=== PATIENT | male | born 1945 | race Caucasian/White ===

== ENCOUNTER → 2018-07-23 10:06 | Outpatient (CLI) | payer MEDICARE, OTHER, SELFPAY ==
--- NOTE | 2018-07-23 10:13 | XR_ITS ---
EXAM: XR lumbar spine min 4V HISTORY: ITS.REASON: LOW BACK PAIN ORDERING PHYSICIAN: Almas Rust MD PATIENT AGE: 72 years COMPARISON: None FINDINGS: There is a moderate amount of feces in bowel gas which obscures the lumbar spine on the AP and oblique views. Degenerative disc disease L1-L2 and L2-L3. There is slight loss of height anteriorly of L3 is age-indeterminate. Minimal retrolisthesis L2 on L3 and L3 on L4 of 3 mm. IMPRESSION: Limited exam, Degenerative disc disease. Mild wedging of L3 age indeterminate
== END ==
PROVIDERS: PCP Internal Medicine Adolescent Medicine; Visit Provider Internal Medicine Adolescent Medicine
DX: M54.5 Low back pain (principal)
CPT/HCPCS: 72110

== ENCOUNTER → 2018-07-29 15:14 | Outpatient (CLI) | payer MEDICARE, OTHER, SELFPAY ==
--- NOTE | 2018-07-29 15:16 | MR_ITS ---
MR lumbar spine wo con, MR 3-d myelogram/MRCP HISTORY: Compression FX L3. LBP on LT side. LT leg tingling. Symptoms [id number]. No trauma. HX throat cancer., Wedging of L3 ITS.REASON: LEFT SIDED SCIATICA ORDERING PHYSICIAN: Almas Rust MD PATIENT AGE: 72 years Comparison: X-RAY 07-23-18 TECHNIQUE: Standard multiplanar multiecho sequences are performed without contrast. 3-D MIP and myelographic images are also rendered and reviewed FINDINGS: There is normal alignment. The spinal cord ends at the T12 level. T12-L1: There is a mosaic appearance of T12 vertebral body dominated by an area of decreased T1 signal in the mid aspect of the vertebral body measuring up to 2.4 x 2 cm which is isointense on T1 becomes hyper intense on the STIR images. This abnormal signal intensity extends into the left pedicle and lamina. This is only imaged in the sagittal plane. There is mild degenerative disc disease at that level with small left paracentral disc osteophyte complex causing mild foraminal narrowing on the left. No obvious epidural extension. L1-L2: Degenerative disc disease with minimal bulging disc and mild right-sided foraminal narrowing. L2-L3: Degenerative disc disease with bulging disc and anterior endplate hypertrophic change. There is mild facet hypertrophic change with mild bilateral foraminal narrowing. L3-L4: L3 vertebral body has an abnormal appearance hypointense on T1 and hyperintense on T2 with mild uniform loss of height consistent with bone marrow infiltration with suspected metastatic disease. There is mild concentric bulging disc at L3-L4 with moderate bilateral foraminal narrowing with facet and ligamentum flavum hypertrophy. L4-L5: Concentric bulging disc with bilateral foraminal narrowing from facet and ligamentum flavum hypertrophy. There is minimal central disc protrusion. L5-S1: Concentric bulging disc with mild facet and ligamentum flavum hypertrophy. There is abnormal signal intensity involving the right aspect of the ileum posteriorly measuring 2.8 x 2 cm hypointense on T1, and slightly hyperintense on T2 be most prominent on the STIR images. In addition, there is a lesion involving the left aspect of the sacrum posteriorly at 2.9 x 2.5 cm. IMPRESSION: 1. Multiple lesions involving T12, L3, the right aspect of the ileum, and the left aspect of the sacrum consistent with metastatic disease. There is mild wedge compression changes of L3 without retropulsion. 2. Lumbar spondylosis with multilevel degenerative disc disease, facet and ligamentum flavum hypertrophy, foraminal narrowing at multiple levels. Please see above for detail description at each level.
== END ==
PROVIDERS: PCP Internal Medicine Adolescent Medicine; Visit Provider Internal Medicine Adolescent Medicine
DX: M54.32 Sciatica, left side (principal); S32.030A Wedge compression fracture of third lumbar vertebra, initial encounter for closed fracture
CPT/HCPCS: 72148; 76376

== ENCOUNTER → 2018-08-04 09:58 | Outpatient (POV) | payer MEDICARE, OTHER, SELFPAY ==
[2018-08-04 10:04] VITALS: BP 180/100; PULSE 84; RESP 18; O2SAT 98
--- NOTE | 2018-08-04 12:25 | HMH.PMCON ---
Assessment and Plan (1) Compression fracture Current visit: Yes Status: Chronic Category: Medical - Assessment and plan all Dx Assessment and Plan for all problems:: We will schedule L3 kyphoplasty. Patient's MRI report did show potential metastatic disease. We will take a biopsy of the vertebral body during the kyphoplasty. Patient's primary care physician is aware of this. I will follow-up with the patient after his kyphoplasty. We also provided him with a back brace for comfort at this time. This note was dictated using voice recognition software and may contain errors or omissions HPI - Data of Consult Consult date: 08/04/18 Requesting Physician: Vannesa Roque APRN Primary Care Provider: Almas Rust MD - Consult Narrative Reason for consult: Back pain, compression fracture History of present illness: Mr. Jefferson is a 72 year old male who presents today for consultation in regards to his low back pain. Patient had recent MRI showing a compression fracture at L3. Patient states his pain is a 6 out of 10. Patient's tried and failed steroids and anti-inflammatories along with narcotic medications. Patient does have some tingling in his left leg. Patient does not have a back brace at this time. He states that all activity makes his pain worse while resting makes it better. Patient is not on any blood thinners CC: Vannesa Roque APRN [facility] History I have reviewed the patient's past medical history: Yes Medical History: Reports:: Hypertension, Palpitations Denies:: Diabetes Mellitus Type 1 Other Medical History: Reports: Thyroid Disease Other Surgeries: Yes: Cancer Surgery (THROAT AND NECK CANCER), Cholecystectomy, Hernia Repair - *Social History Smoking Status: Never smoker Alcohol Intake: never Occupational Status: other Housing: house Household Members: spouse - Psychiatric History Expresses thoughts of harming self/others: None Suicide Plan Description: No Plan *Family Hx:: Unable to obtain Review of Systems - Review of Systems ROS General: no recent weight change, no fever, no sleep disturbances Respiratory: no cough, no shortness of air, no recurring pulmonary infections Cardiovascular/Peripheral Vascular: No chest pain, No palpitations, no edema, no shortness of breath. Gastrointestinal: no incontinence, normal bowel movements reported Genitourinary: no incontinence Musculoskeletal: Back pain, leg pain Psychiatric: normal mood/ affect Neurological: [denies weakness in extremities], [denies balance issues] Meds Home Medications Medication Instructions Recorded Confirmed Type Aspirin [Aspirin 81mg chewable 81 mg PO DAILY 08/04/18 08/04/18 History tab] Carvedilol [Carvedilol 25mg Tab] 25 mg PO DAILY 08/04/18 08/04/18 History Levothyroxine Sodium [Synthroid 150 mg PO DAILY MDD THYROID 08/04/18 08/04/18 History 150mcg (0.15mg) tablet] Olmesartan/Hydrochlorothiazide 1 each PO DAILY 08/04/18 08/04/18 History [Olmesartan-Hctz 40-25 mg Tab] predniSONE [Deltasone 20mg 20 mg PO DAILY 08/04/18 08/04/18 History tablet] Allergies Allergy/AdvReac Type Severity Reaction Status Date / Time No Known Allergies Allergy Unverified 09/24/17 14:35 Objective Vital signs: Pulse Resp BP Pulse Ox 84 18 180/100 H 98 08/04/18 10:04 08/04/18 10:04 08/04/18 10:04 08/04/18 10:04 Narrative: Physical Exam General: Alert and oriented x3, no acute distress, pleasant and cooperative, [on room air] Lungs: Resps E/U, Symmetrical chest expansion, Eyes: PERRL Musculoskeletal: Flexion and extension of lumbar spine somewhat guarded secondary to pain, deep tendon reflexes normal, strength in upper and lower extremities [5/5], antalgic gait noted Neurological: speech clear, major case detective equal, no gross sensory deficits Opioid Risk Tool - Opioid Risk Tool-Male Family hx alcohol abuse: N Family hx illegal drugs: N Fam
--- NOTE | 2018-08-04 12:28 | P.CONS_ITS ---
Assessment and Plan (1) Compression fracture Current visit: Yes Status: Chronic Category: Medical - Assessment and plan all Dx Assessment and Plan for all problems:: We will schedule L3 kyphoplasty. Patient's MRI report did show potential metastatic disease. We will take a biopsy of the vertebral body during the kyphoplasty. Patient's primary care physician is aware of this. I will follow- up with the patient after his kyphoplasty. We also provided him with a back brace for comfort at this time. This note was dictated using voice recognition software and may contain errors or omissions HPI - Data of Consult Consult date: 08/04/18 Requesting Physician: Vannesa Roque APRN Primary Care Provider: Almas Rust MD - Consult Narrative Reason for consult: Back pain, compression fracture History of present illness: Mr. Jefferson is a 72 year old male who presents today for consultation in regards to his low back pain. Patient had recent MRI showing a compression fracture at L3. Patient states his pain is a 6 out of 10. Patient's tried and failed steroids and anti-inflammatories along with narcotic medications. Patient does have some tingling in his left leg. Patient does not have a back brace at this time. He states that all activity makes his pain worse while resting makes it better. Patient is not on any blood thinners CC: Vannesa Roque APRN [facility] History I have reviewed the patient's past medical history: Yes Medical History: Reports:: Hypertension, Palpitations Denies:: Diabetes Mellitus Type 1 Other Medical History: Reports: Thyroid Disease Other Surgeries: Yes: Cancer Surgery (THROAT AND NECK CANCER), Cholecystectomy, Hernia Repair - *Social History Smoking Status: Never smoker Alcohol Intake: never Occupational Status: other Housing: house Household Members: spouse - Psychiatric History Expresses thoughts of harming self/others: None Suicide Plan Description: No Plan *Family Hx:: Unable to obtain Review of Systems - Review of Systems ROS General: no recent weight change, no fever, no sleep disturbances Respiratory: no cough, no shortness of air, no recurring pulmonary infections Cardiovascular/Peripheral Vascular: No chest pain, No palpitations, no edema, no shortness of breath. Gastrointestinal: no incontinence, normal bowel movements reported Genitourinary: no incontinence Musculoskeletal: Back pain, leg pain Psychiatric: normal mood/ affect Neurological: [denies weakness in extremities], [denies balance issues] Meds Home Medications Medication Instructions Recorded Confirmed Type Aspirin [Aspirin 81mg chewable 81 mg PO DAILY 08/04/18 08/04/18 History tab] Carvedilol [Carvedilol 25mg Tab] 25 mg PO DAILY 08/04/18 08/04/18 History Levothyroxine Sodium [Synthroid 150 mg PO DAILY MDD THYROID 08/04/18 08/04/18 History 150mcg (0.15mg) tablet] Olmesartan/Hydrochlorothiazide 1 each PO DAILY 08/04/18 08/04/18 History [Olmesartan-Hctz 40-25 mg Tab] predniSONE [Deltasone 20mg 20 mg PO DAILY 08/04/18 08/04/18 History tablet] Allergies Allergy/AdvReac Type Severity Reaction Status Date / Time No Known Allergies Allergy Unverified 09/24/17 14:35 Objective Vital signs: Pulse Resp
== END ==
PROVIDERS: PCP Internal Medicine Adolescent Medicine; Visit Provider Clinical Nurse Specialist Family Health
DX: I10 Essential (primary) hypertension (principal); M48.56XA Collapsed vertebra, not elsewhere classified, lumbar region, initial encounter for fracture
CPT/HCPCS: 99202

== ENCOUNTER → 2018-08-18 07:48 | Outpatient (CLI) | payer MEDICARE, OTHER, SELFPAY ==
--- NOTE | 2018-08-18 07:57 | NM_ITS ---
NM bone scan whole body CLINICAL INDICATION: Metastatic disease, abnormal MRI, history of throat cancer ITS.REASON: METASTATIC CARCINOMA ORDERING PHYSICIAN: Almas Rust MD PATIENT AGE: 72 years Comparison: 07/29/2018 DOSE: 26.4 mCi technetium MDP FINDINGS: Previous MRI demonstrated multiple spinal lesions as well as lesions within the sacrum and right ilium. There is abnormal increased activity involving the right seventh rib posteriorly and medially, the L3 vertebral body, and the left aspect of T12 and T11 vertebral body at the costovertebral junction. Slight increased activity involves posterior lateral aspect of the right 10th rib. There is slight increased activity in the right SI joint. Small focus of increased activity also involves the left parietal bone and nonspecific foci of increased activity involves the right C4 area in the left C2 area. No abnormal long bone activity evident. Small focus of increased activity is present in the lower aspect of the manubrium. Slight increased activity right second rib anteriorly IMPRESSION: 1. There are multiple foci of abnormal activity suggesting metastatic disease as described above with the most suspicious areas in L3 vertebral body and the right seventh rib as well as left aspect of T11 and T12 vertebral body and the right ilium. Increased activity also present in the left parietal bone which could be due to metastatic focus. Slight increased activity right second rib anteriorly nonspecific 2. The sacral lesion does not show increased activity on the bone scan but is felt to be a metastatic focus on MRI.
--- NOTE | 2018-08-18 08:19 | HMH.ITSHM ---
Current Home Medications as stated by this patient Sreedhar Jeffesron or u.s. representative. []PREDNISONE OLMESARTAN LEVTHYROXINE CARVEDILOL ASA
--- NOTE | 2018-08-18 09:15 | HMH.ITSHM ---
Current Home Medications as stated by this patient Sreedhar Jefferson or arborist representative. []PREDNISONE OLMESARTAN LEVOTHYROXINE CARVEDILOL ASA
[2018-08-18 09:39] LABS: Blood Urea Nitrogen 8 mg/dL (7-18); Creatinine,Serum 0.85 mg/dL (0.70-1.30); Estimated Glomerular Filt Rate 88 ml/min (>60); GFR (African American) 107 ML/MIN (>60)
== END ==
PROVIDERS: Visit Provider Internal Medicine Adolescent Medicine
DX: C41.9 Malignant neoplasm of bone and articular cartilage, unspecified (principal)
CPT/HCPCS: 36415; 78306; 82565; 84520; A9503

== ENCOUNTER → 2018-08-20 09:32 | Outpatient (CLI) | payer MEDICARE, OTHER, SELFPAY ==
--- NOTE | 2018-08-20 09:36 | CT_ITS ---
CT soft tissue neck w con CLINICAL INDICATION: ITS.REASON: MALIGNANT NEOPLASM, METASTATIC CARCINOMA ORDERING PHYSICIAN: Almas Rust MD PATIENT AGE: 72 years COMPARISON: 04/24/2012 TECHNIQUE:Axial images obtained following the intravenous administration of 50 mL of Isovue-370 with sagittal and coronal reformats. All CT scans at the facility use one or more dose reduction, viz: automated exposure control, ma/kV adjustment per patient size (including targeted exams where dose is matched to indication, i.e. head), or iterative reconstruction technique. FINDINGS: No mass or abnormal fluid collection or adenopathy evident. The parotid and submandibular glands have an unremarkable appearance no obvious nasopharyngeal, retropharyngeal or laryngeal mass. The epiglottis and glottic region have an unremarkable appearance. There is degenerative disc disease at C5-C6 with 2 to 3 mm anterolisthesis of C4 on C5. The bone scan did show some increased activity on the right at the C5-C6 level and on the left C3-C4. There is a lucency within the left aspect of the vertebral body at C5. This however did have a similar appearance on the older exam and is probably benign and may be due to a geode. IMPRESSION: 1. Essentially negative CT neck with contrast. 2. Degenerative changes cervical spine
--- NOTE | 2018-08-20 09:36 | CT_ITS ---
CT chest w con HISTORY: ITS.REASON: MALIGNANT NEOPLASM, METASTATIC CARCINOMA ORDERING PHYSICIAN: Almas Rust MD PATIENT AGE: 72 years COMPARISON: 03/13/2012 TECHNIQUE: Axial images obtained following the administration of 75 mL of Isovue 370 . Sagittal, and coronal reformatted images are also generated and reviewed. All CT scans at the facility use one or more dose reduction, viz: automated exposure control, ma/kV adjustment per patient size (including targeted exams where dose is matched to indication, i.e. head), or iterative reconstruction technique. FINDINGS: There are scattered small mediastinal lymph nodes measuring up to 11 x 13 mm in the pretracheal region. These are slightly more apparent on today's study as compared to the previous exam. Small precarinal nodes are also present slightly more prominent. No hilar adenopathy or mass. There are coronary artery calcifications. No evidence of pericardial effusion. There is a lobular pleural-based density in the mid aspect right posterior hemithorax at the seventh rib. This measures 3.4 cm transverse, 1.6 cm AP, and 3.5 cm cephalad caudad with some erosion of the right seventh rib posteriorly and sclerosis of this rib consistent with neoplasm. This does correspond to the bone scan findings which show increased activity at this region. No pleural effusion evident. No calcification of the mass. There are mild atelectatic changes adjacent to this lesion. No pulmonary parenchymal suspicious nodules evident. Minimal nodularities present in the lingula at 6 x 3 mm image #9 nonspecific No other bony lesions are evident. IMPRESSION: 1. Pleural-based lesion in the right posterior hemithorax at the seventh rib with mild erosion and sclerosis of the underlying rib consistent with neoplasm. Metastatic disease is considered. 2. Mildly enlarged mediastinal lymph nodes slightly increased in size compared to previous exam. 3. No suspicious pulmonary nodules.
--- NOTE | 2018-08-20 09:36 | CT_ITS ---
CT abdomen pelvis wo/w con CLINICAL INDICATION: Malignant neoplasm of the spine, metastatic disease ITS.REASON: MALIGNANT NEOPLASM, METASTATIC CARCINOMA ORDERING PHYSICIAN: Almas Rust MD PATIENT AGE: 72 years COMPARISON: None TECHNIQUE: Axial images obtained without and with contrast enhancement with sagittal and coronal reformats. All CT scans at the facility use one or more dose reduction, viz: automated exposure control, ma/kV adjustment per patient size (including targeted exams where dose is matched to indication, i.e. head), or iterative reconstruction technique. PROCEDURE: Oral Contrast: Redicat IV Contrast: 75 mL of Isovue-370. FINDINGS: The liver, spleen, adrenal glands, pancreas, and kidneys have an unremarkable appearance. Unremarkable appendix. No intestinal obstruction or free air. No pelvic mass or abnormal fluid collections or focal inflammatory changes or pelvis. Prostate is enlarged at 6 cm in transverse dimension. No abdominal or pelvic or retroperitoneal adenopathy. There has been a kyphoplasty at L3. There is destruction of the anterior and right aspect of the L3 vertebral body with mild compression changes of L3 of approximately 15%. This does not extend into the posterior elements. There is also erosion along the lamina on the left at T12 corresponding to the MRI abnormality. Slight increased density is present along the medial aspect of the ilium on the right corresponding to the lesion noted on MRI. The left-sided sacral lesion seen on MRI is not well demonstrated on the CT scan. IMPRESSION: 1. Bony metastasis of L3, T12, and the right ilium. 2. No evidence of hepatic or abdominal metastasis.
== END ==
PROVIDERS: PCP Internal Medicine Adolescent Medicine; Visit Provider Internal Medicine Adolescent Medicine
DX: C80.1 Malignant (primary) neoplasm, unspecified (principal); C79.51 Secondary malignant neoplasm of bone
CPT/HCPCS: 70491; 71260; 74170; Q9967

== ENCOUNTER → 2018-08-22 11:40 | Outpatient (POV) | payer MEDICARE, OTHER, SELFPAY ==
[2018-08-22 11:42] VITALS: BP 159/95; PULSE 68; RESP 18; TEMP 36.6; O2SAT 97; BMI 25.2
--- NOTE | 2018-08-22 12:09 | P.CONS_ITS ---
[facility] Pain Management SOAP Note Subjective:: This patient is a pleasant 72-year-old white male who had L3 kyphoplasty for compression fracture on 08/06/2018. We did send biopsies and this came back to be positive for metastatic disease. MRI does show multiple lesions at T12, L3 and the right aspect of the ilium and left aspect of the sacrum. He is currently being worked up to find his primary cancer. He is been worked up by Dr. Aden and will be sent over to Dr. Quintero, our oncologist. He is doing relatively well from his kyphoplasty procedure. Pain has been minimized. He is gotten significant relief and has some occasional pain on his left side most likely from further metastatic disease. Objective:: Alert and oriented x3 in no acute distress. Patient does have a normal gait. Motor strength of the lower extremities is 5/5. There is no gross sensory deficit. Assessment:: L3 compression fracture with metastatic disease status post kyphoplasty Plan:: We will follow-up with him on a as needed basis. I have requested that Dr. Quintero's notes be sent over to us. We will continue to follow him and be available to help with his pain should it increase at any time. Please let us know if there is anything further we can do to help with his pain symptoms.
== END ==
PROVIDERS: PCP Internal Medicine Adolescent Medicine; Visit Provider Anesthesiology
DX: M84.58XA Pathological fracture in neoplastic disease, other specified site, initial encounter for fracture
CPT/HCPCS: 99212

== ENCOUNTER → 2018-10-02 13:59 | Outpatient (CLI) | payer MEDICARE, OTHER, SELFPAY ==
[2018-10-02 14:20] VITALS: BP 109/74; PULSE 69; RESP 20; TEMP 36.7; O2SAT 97
== END ==
PROVIDERS: Visit Provider Internal Medicine Medical Oncology
DX: C34.91 Malignant neoplasm of unspecified part of right bronchus or lung (principal)
CPT/HCPCS: 96372

== ENCOUNTER 2018-10-09 11:50 | Outpatient (CLI) | payer MEDICARE, OTHER, SELFPAY ==
[2018-10-09] VITALS (8 sets, daily range): BP systolic 135–155; BP diastolic 77–101; PULSE 70–76; RESP 16–18; BMI 25.7
[2018-10-09 12:30] LABS: Anion Gap 9.1 mEq/L (5-15); Blood Urea Nitrogen 12 mg/dL (7-18); Calcium 9.4 mg/dL (8.5-10.1); Carbon Dioxide 32 mmol/L (21.0-32.0); Chloride 99 mmol/L (98-107); Creatinine Clearance Estimated 88 mL/min (50-200); Creatinine,Serum 0.98 mg/dL (0.70-1.30); Estimated Glomerular Filt Rate 75 ml/min (>60); GFR (African American) 90 ML/MIN (>60); Glucose 87 mg/dL (74-106); Potassium 4.1 mmoL/L (3.5-5.1); Sodium 136 mmol/L (136-145)
[2018-10-09 12:33] LABS: Basophils % 0.3 % (0.1-2.0); Eosinophils # 0.3 K/mm3 (0.0-0.4); Hematocrit 50.1 % (42.0-52.0); Hemoglobin 15.8 g/dL (14.1-18.0); Lymphocytes % 12.3 % (10-50); Mean Corpuscular HGB Conc 31.5 g/dL (31.8-35.4); Mean Corpuscular Hemoglobin 29.1 pg (27.0-31.2); Mean Corpuscular Volume 92.3 fl (80-94); Mean Platelet Volume 6.8 fl (7.4-10.4); Monocytes # 0.6 K/mm3 (0.1-1.0); Neutrophils # 5.9 K/mm3 (1.8-7.8); Neutrophils % 75.4 % (37.0-80.0); Platelet Count 387 K/mm3 (142-424); Red Blood Count 5.43 M/mm3 (4.60-6.20); Red Cell Distribution Width 13.6 % (11.5-17.5); White Blood Count 7.8 K/mm3 (4.8-10.8)
--- NOTE | 2018-10-09 13:50 | PC.NURSE ---
1255 - PREMEDICATED WITH KYTRIL 2MG PO, DEXAMETHASONE 12MG PO, AND EMEND 125MG PO AT THIS TIME. REMAINING EMEND TRI PK GIVEN TO PT AND INSTRUCTED HIM TO TAKE 80 MG PO ON DAYS 2 AND 3.
== END 2018-10-09 15:25 | disposition home or self-care (01) ==
LOC: INF 12:06
PROVIDERS: Visit Provider Internal Medicine Medical Oncology
DX: Z51.11 Encounter for antineoplastic chemotherapy (principal); C34.90 Malignant neoplasm of unspecified part of unspecified bronchus or lung; C79.51 Secondary malignant neoplasm of bone
CPT/HCPCS: 80048; 85025; 96413; 96415; 96417; J8501; J9045; J9271; J9305; Q0166

== ENCOUNTER 2018-10-30 09:00 | Outpatient (CLI) | payer MEDICARE, OTHER, SELFPAY ==
[2018-10-30] VITALS (8 sets, daily range): BP systolic 138–161; BP diastolic 77–95; PULSE 72–81; RESP 18–20; TEMP 36.3; O2SAT 97; BMI 25.5
[2018-10-30 09:53] LABS: Basophils % 0.4 % (0.1-2.0); Eosinophils # 0.3 K/mm3 (0.0-0.4); Eosinophils % 3.7 % (0.1-12.0); Hematocrit 45.2 % (42.0-52.0); Hemoglobin 14.7 g/dL (14.1-18.0); Lymphocytes # 0.6 K/mm3 (0.7-4.5); Lymphocytes % 7.9 % (10-50); Mean Corpuscular HGB Conc 32.4 g/dL (31.8-35.4); Mean Corpuscular Hemoglobin 29.2 pg (27.0-31.2); Mean Corpuscular Volume 90.1 fl (80-94); Mean Platelet Volume 7.5 fl (7.4-10.4); Monocytes # 0.7 K/mm3 (0.1-1.0); Monocytes % 9.4 % (1.7-9.3); Neutrophils # 5.7 K/mm3 (1.8-7.8); Neutrophils % 78.6 % (37.0-80.0); Platelet Count 494 K/mm3 (142-424); Red Blood Count 5.02 M/mm3 (4.60-6.20); Red Cell Distribution Width 13.8 % (11.5-17.5); White Blood Count 7.3 K/mm3 (4.8-10.8)
[2018-10-30 10:15] LABS: Alanine Aminotransferase 23 U/L (12-78); Albumin Level 3.3 gm/dL (3.4-5.0); Albumin/Globulin Ratio 0.7 (1.1-1.8); Alkaline Phosphatase 99 U/L (46-116); Anion Gap 9.4 mEq/L (5-15); Aspartate Amino Transferase 25 U/L (15-37); Bilirubin,Total 0.3 mg/dL (0.2-1.0); Blood Urea Nitrogen 9 mg/dL (7-18); Calcium 9.6 mg/dL (8.5-10.1); Carbon Dioxide 31 mmol/L (21.0-32.0); Chloride 99 mmol/L (98-107); Creatinine Clearance Estimated 87 mL/min (50-200); Creatinine,Serum 0.99 mg/dL (0.70-1.30); Estimated Glomerular Filt Rate 74 ml/min (>60); GFR (African American) 89 ML/MIN (>60); Globulin 4.6 gm/dl (1.3-3.2); Glucose 126 mg/dL (74-106); Potassium 3.4 mmoL/L (3.5-5.1); Sodium 136 mmol/L (136-145); Total Protein,Serum 7.9 gm/dL (6.4-8.2)
== END 2018-10-30 13:15 | disposition home or self-care (01) ==
LOC: INF 09:04
PROVIDERS: Visit Provider Internal Medicine Medical Oncology
DX: Z51.11 Encounter for antineoplastic chemotherapy (principal); C34.90 Malignant neoplasm of unspecified part of unspecified bronchus or lung; C79.51 Secondary malignant neoplasm of bone
CPT/HCPCS: 80053; 85025; 96409; 96413; 96417; J8501; J9045; J9271; J9305; Q0166

== ENCOUNTER → 2018-11-17 08:12 | Outpatient (CLI) | payer MEDICARE, OTHER, SELFPAY ==
[2018-11-17 08:23] LABS: Basophils % 0.3 % (0.1-2.0); Eosinophils # 0.1 K/mm3 (0.0-0.4); Eosinophils % 3.5 % (0.1-12.0); Hematocrit 43.4 % (42.0-52.0); Hemoglobin 14.2 g/dL (14.1-18.0); Lymphocytes # 0.6 K/mm3 (0.7-4.5); Lymphocytes % 14.6 % (10-50); Mean Corpuscular HGB Conc 32.7 g/dL (31.8-35.4); Mean Corpuscular Hemoglobin 29.3 pg (27.0-31.2); Mean Corpuscular Volume 89.8 fl (80-94); Mean Platelet Volume 7.3 fl (7.4-10.4); Monocytes # 0.5 K/mm3 (0.1-1.0); Monocytes % 11.1 % (1.7-9.3); Neutrophils # 2.9 K/mm3 (1.8-7.8); Neutrophils % 70.4 % (37.0-80.0); Platelet Count 422 K/mm3 (142-424); Red Blood Count 4.83 M/mm3 (4.60-6.20); Red Cell Distribution Width 15.1 % (11.5-17.5); White Blood Count 4.1 K/mm3 (4.8-10.8)
[2018-11-17 08:35] LABS: Alanine Aminotransferase 24 U/L (12-78); Albumin Level 3.2 gm/dL (3.4-5.0); Albumin/Globulin Ratio 0.7 (1.1-1.8); Alkaline Phosphatase 93 U/L (46-116); Anion Gap 11.1 mEq/L (5-15); Aspartate Amino Transferase 25 U/L (15-37); Bilirubin,Total 0.4 mg/dL (0.2-1.0); Blood Urea Nitrogen 12 mg/dL (7-18); Calcium 9.4 mg/dL (8.5-10.1); Carbon Dioxide 32 mmol/L (21.0-32.0); Chloride 100 mmol/L (98-107); Creatinine,Serum 1.03 mg/dL (0.70-1.30); Estimated Glomerular Filt Rate 70 ml/min (>60); GFR (African American) 85 ML/MIN (>60); Globulin 4.4 gm/dl (1.3-3.2); Glucose 100 mg/dL (74-106); Potassium 4.1 mmoL/L (3.5-5.1); Sodium 139 mmol/L (136-145); Total Protein,Serum 7.6 gm/dL (6.4-8.2)
--- NOTE | 2018-11-17 08:37 | CT_ITS ---
CT abdomen pelvis w con CLINICAL INDICATION: Follow-up lung cancer and metastatic disease ITS.REASON: LUNG CA ORDERING PHYSICIAN: Roxane Quintero MD PATIENT AGE: 73 years COMPARISON: 08/20/2018 TECHNIQUE: Axial images obtained with sagittal and coronal reformats. All CT scans at the facility use one or more dose reduction, viz: automated exposure control, ma/kV adjustment per patient size (including targeted exams where dose is matched to indication, i.e. head), or iterative reconstruction technique. PROCEDURE: Oral Contrast: Redicat IV Contrast: 75 mL's Optiray 350 performed in conjunction with the chest CT. FINDINGS: The liver, spleen, adrenal glands, and pancreas have an unremarkable appearance. There are postcholecystectomy changes. No renal or ureteral calculi. No hydronephrosis or renal mass.. Unremarkable appendix. There is diverticulosis of the descending and sigmoid colon. No evidence of diverticulitis.. There is some increased soft tissue density in the inguinal region bilaterally and may be related to prior surgery not significant changed. Prostate is slightly prominent at 5.5 cm. Status post kyphoplasty at L3 as before with destructive changes of the L3 vertebral body similar to the previous exam. There is mild sclerosis involving the ilium on the right as before. Erosive change involving the lamina on the left at T12 once again noted not significantly changed. No new bony lesions are evident. IMPRESSION: 1. Overall no change in the appearance of the abdomen and pelvis. 2. Bony lesions at L3, T12, and the right ilium are unchanged
--- NOTE | 2018-11-17 08:37 | CT_ITS ---
CT chest w con HISTORY: Follow-up lung cancer ITS.REASON: LUNG CA ORDERING PHYSICIAN: Roxane Quintero MD PATIENT AGE: 73 years COMPARISON: 08/20/2018 TECHNIQUE: Axial images obtained following the administration of 75 mL of Optiray 350. Sagittal, and coronal reformatted images are also generated and reviewed. All CT scans at the facility use one or more dose reduction, viz: automated exposure control, ma/kV adjustment per patient size (including targeted exams where dose is matched to indication, i.e. head), or iterative reconstruction technique. FINDINGS: Small lymph nodes are present in the mediastinum. Most of these are unchanged. One small node in the left lower pretracheal region is very slightly larger at 11 x 11 mm previously 12 x 8 mm. There are small nodes in the right hilum which is not significantly changed. Coronary artery calcifications are evident. No evidence of pericardial effusion. There has been a prior median sternotomy There are centrilobular emphysematous changes with scattered areas of fibrosis. Pleural-based soft tissue mass with skin noted in the right mid chest posteriorly. The soft tissues mass is slightly smaller at 2.8 x 1 cm previously 3.5 x 1.6 cm's. Associated erosive changes of the underlying seventh rib once again noted not significantly changed also with some sclerosis unchanged. Mixed lucent lesion was some increased density noted involving the T 11 vertebral body anteriorly on the left. IMPRESSION: 1. Pleural-based mass in the right lower lobe appears slightly smaller. No change in the underlying erosive and sclerotic change of the right seventh rib. 2. No change in the mixed lucent/sclerotic lesion of the T11 vertebral body on the left possibly due to a hemangioma 3. There are small nodes in the mediastinum one which is slightly larger question clinical significance
== END ==
PROVIDERS: Visit Provider Internal Medicine Medical Oncology
DX: C34.91 Malignant neoplasm of unspecified part of right bronchus or lung (principal); Z03.89 Encounter for observation for other suspected diseases and conditions ruled out
CPT/HCPCS: 36415; 71260; 74177; 80053; 85025

== ENCOUNTER 2018-11-20 09:00 | Outpatient (CLI) | payer MEDICARE, OTHER, SELFPAY ==
[2018-11-20] VITALS (9 sets, daily range): BP systolic 141–159; BP diastolic 86–106; PULSE 62–91; RESP 18; TEMP 36.3; O2SAT 95–96; BMI 25.6
== END 2018-11-20 13:40 | disposition home or self-care (01) ==
LOC: INF 09:03
PROVIDERS: Visit Provider Internal Medicine Medical Oncology
DX: Z51.11 Encounter for antineoplastic chemotherapy (principal); C34.90 Malignant neoplasm of unspecified part of unspecified bronchus or lung; C79.51 Secondary malignant neoplasm of bone
CPT/HCPCS: 96409; 96413; 96417; J9045; J9271; J9305; Q0166

== ENCOUNTER 2018-12-11 08:50 | Outpatient (CLI) | payer MEDICARE, OTHER, SELFPAY ==
[2018-12-11] VITALS (8 sets, daily range): BP systolic 129–166; BP diastolic 69–103; PULSE 64–83; RESP 18–20; TEMP 36.3–36.5; O2SAT 95; BMI 25.9
[2018-12-11 09:39] LABS: Basophils % 0.3 % (0.1-2.0); Eosinophils # 0.2 K/mm3 (0.0-0.4); Eosinophils % 3.3 % (0.1-12.0); Hemoglobin 14.1 g/dL (14.1-18.0); Lymphocytes # 0.6 K/mm3 (0.7-4.5); Lymphocytes % 11.3 % (10-50); Mean Corpuscular HGB Conc 33.6 g/dL (31.8-35.4); Mean Corpuscular Hemoglobin 30.5 pg (27.0-31.2); Mean Corpuscular Volume 90.8 fl (80-94); Mean Platelet Volume 6.8 fl (7.4-10.4); Monocytes # 0.5 K/mm3 (0.1-1.0); Monocytes % 8.9 % (1.7-9.3); Neutrophils % 76.2 % (37.0-80.0); Platelet Count 332 K/mm3 (142-424); Red Blood Count 4.63 M/mm3 (4.60-6.20); Red Cell Distribution Width 15.6 % (11.5-17.5); White Blood Count 5.2 K/mm3 (4.8-10.8)
[2018-12-11 10:06] LABS: Alanine Aminotransferase 28 U/L (12-78); Albumin Level 3.3 gm/dL (3.4-5.0); Albumin/Globulin Ratio 0.8 (1.1-1.8); Alkaline Phosphatase 86 U/L (46-116); Anion Gap 9.9 mEq/L (5-15); Aspartate Amino Transferase 33 U/L (15-37); Bilirubin,Total 0.5 mg/dL (0.2-1.0); Blood Urea Nitrogen 13 mg/dL (7-18); Calcium 9.2 mg/dL (8.5-10.1); Carbon Dioxide 30 mmol/L (21.0-32.0); Chloride 101 mmol/L (98-107); Creatinine Clearance Estimated 87 mL/min (50-200); Creatinine,Serum 0.99 mg/dL (0.70-1.30); Estimated Glomerular Filt Rate 74 ml/min (>60); GFR (African American) 89 ML/MIN (>60); Globulin 4.4 gm/dl (1.3-3.2); Glucose 130 mg/dL (74-106); Sodium 138 mmol/L (136-145); Total Protein,Serum 7.7 gm/dL (6.4-8.2)
[2018-12-11 10:08] LABS: Potassium 2.9 mmoL/L (3.5-5.1)
== END 2018-12-11 13:20 | disposition home or self-care (01) ==
LOC: INF 08:55
PROVIDERS: Visit Provider Internal Medicine Medical Oncology
DX: Z51.11 Encounter for antineoplastic chemotherapy (principal); C34.90 Malignant neoplasm of unspecified part of unspecified bronchus or lung; C79.51 Secondary malignant neoplasm of bone
CPT/HCPCS: 80053; 85025; 96409; 96413; 96417; J8501; J9045; J9271; J9305; Q0166

== ENCOUNTER 2019-01-01 08:34 | Outpatient (CLI) | payer MEDICARE, OTHER, SELFPAY ==
[2019-01-01] VITALS (8 sets, daily range): BP systolic 121–151; BP diastolic 77–95; PULSE 67–83; RESP 16–18; TEMP 36.2; O2SAT 96; BMI 25.9
[2019-01-01 08:48] LABS: Basophils % 0.4 % (0.1-2.0); Eosinophils # 0.2 K/mm3 (0.0-0.4); Eosinophils % 4.2 % (0.1-12.0); Hematocrit 42.7 % (42.0-52.0); Lymphocytes # 0.7 K/mm3 (0.7-4.5); Lymphocytes % 13.2 % (10-50); Mean Corpuscular HGB Conc 32.9 g/dL (31.8-35.4); Mean Corpuscular Hemoglobin 30.8 pg (27.0-31.2); Mean Corpuscular Volume 93.7 fl (80-94); Mean Platelet Volume 6.8 fl (7.4-10.4); Monocytes # 0.6 K/mm3 (0.1-1.0); Monocytes % 12.1 % (1.7-9.3); Neutrophils # 3.5 K/mm3 (1.8-7.8); Neutrophils % 69.9 % (37.0-80.0); Platelet Count 378 K/mm3 (142-424); Red Blood Count 4.55 M/mm3 (4.60-6.20)
[2019-01-01 09:00] LABS: Alanine Aminotransferase 27 U/L (12-78); Albumin Level 3.5 gm/dL (3.4-5.0); Albumin/Globulin Ratio 0.8 (1.1-1.8); Alkaline Phosphatase 90 U/L (46-116); Anion Gap 11.3 mEq/L (5-15); Aspartate Amino Transferase 39 U/L (15-37); Bilirubin,Total 0.6 mg/dL (0.2-1.0); Blood Urea Nitrogen 9 mg/dL (7-18); Calcium 9.5 mg/dL (8.5-10.1); Carbon Dioxide 30 mmol/L (21.0-32.0); Chloride 102 mmol/L (98-107); Creatinine Clearance Estimated 81 mL/min (50-200); Creatinine,Serum 1.08 mg/dL (0.70-1.30); Estimated Glomerular Filt Rate 67 ml/min (>60); GFR (African American) 81 ML/MIN (>60); Globulin 4.5 gm/dl (1.3-3.2); Glucose 114 mg/dL (74-106); Potassium 3.3 mmoL/L (3.5-5.1); Sodium 140 mmol/L (136-145)
== END 2019-01-01 12:25 | disposition home or self-care (01) ==
LOC: INF 08:34
PROVIDERS: Visit Provider Internal Medicine Medical Oncology
DX: Z51.11 Encounter for antineoplastic chemotherapy (principal); C34.91 Malignant neoplasm of unspecified part of right bronchus or lung
CPT/HCPCS: 80053; 85025; 96409; 96413; 96417; J8501; J9045; J9271; J9305; Q0166

== ENCOUNTER 2019-01-22 08:00 | Outpatient (CLI) | payer MEDICARE, OTHER, SELFPAY ==
[2019-01-22] VITALS (9 sets, daily range): BP systolic 116–140; BP diastolic 68–76; PULSE 66–72; RESP 16–18; TEMP 36.1; BMI 25.8
[2019-01-22 08:23] LABS: Basophils % 0.2 % (0.1-2.0); Eosinophils # 0.2 K/mm3 (0.0-0.4); Eosinophils % 4.3 % (0.1-12.0); Hematocrit 39.9 % (42.0-52.0); Hemoglobin 13.3 g/dL (14.1-18.0); Lymphocytes # 0.5 K/mm3 (0.7-4.5); Lymphocytes % 13.3 % (10-50); Mean Corpuscular HGB Conc 33.4 g/dL (31.8-35.4); Mean Corpuscular Hemoglobin 30.6 pg (27.0-31.2); Mean Corpuscular Volume 91.4 fl (80-94); Mean Platelet Volume 7.4 fl (7.4-10.4); Monocytes # 0.6 K/mm3 (0.1-1.0); Monocytes % 15.2 % (1.7-9.3); Neutrophils # 2.6 K/mm3 (1.8-7.8); Platelet Count 347 K/mm3 (142-424); Red Blood Count 4.36 M/mm3 (4.60-6.20); Red Cell Distribution Width 15.6 % (11.5-17.5); White Blood Count 3.9 K/mm3 (4.8-10.8)
[2019-01-22 08:45] LABS: Alanine Aminotransferase 30 U/L (12-78); Albumin Level 3.3 gm/dL (3.4-5.0); Albumin/Globulin Ratio 0.8 (1.1-1.8); Alkaline Phosphatase 83 U/L (46-116); Anion Gap 8.8 mEq/L (5-15); Aspartate Amino Transferase 37 U/L (15-37); Bilirubin,Total 0.5 mg/dL (0.2-1.0); Blood Urea Nitrogen 14 mg/dL (7-18); Carbon Dioxide 30 mmol/L (21.0-32.0); Chloride 102 mmol/L (98-107); Creatinine Clearance Estimated 77 mL/min (50-200); Creatinine,Serum 1.13 mg/dL (0.70-1.30); Estimated Glomerular Filt Rate 63 ml/min (>60); GFR (African American) 77 ML/MIN (>60); Glucose 116 mg/dL (74-106); Sodium 138 mmol/L (136-145); Total Protein,Serum 7.3 gm/dL (6.4-8.2)
[2019-01-22 08:46] LABS: Potassium 2.8 mmoL/L (3.5-5.1)
--- NOTE | 2019-01-22 09:48 | PC.NURSE ---
0930 - GAVE VITAMIN B12 1,000MCG IM IN LEFT DELTOID AT THIS TIME.
== END 2019-01-22 12:35 | disposition home or self-care (01) ==
LOC: INF 08:01
PROVIDERS: Visit Provider Internal Medicine Medical Oncology
DX: Z51.11 Encounter for antineoplastic chemotherapy (principal); C34.91 Malignant neoplasm of unspecified part of right bronchus or lung
CPT/HCPCS: 80053; 85025; 96409; 96411; 96413; 96417; J8501; J9045; J9271; J9305; Q0166

== ENCOUNTER → 2019-02-10 11:30 | Outpatient (CLI) | payer MEDICARE, OTHER, SELFPAY ==
[2019-02-10 12:09] LABS: Basophils % 0.3 % (0.1-2.0); Eosinophils # 0.2 K/mm3 (0.0-0.4); Eosinophils % 4.5 % (0.1-12.0); Hematocrit 39.5 % (42.0-52.0); Hemoglobin 14.3 g/dL (14.1-18.0); Lymphocytes # 0.8 K/mm3 (0.7-4.5); Lymphocytes % 19.5 % (10-50); Mean Corpuscular HGB Conc 36.3 g/dL (31.8-35.4); Mean Corpuscular Hemoglobin 33.8 pg (27.0-31.2); Mean Corpuscular Volume 93.1 fl (80-94); Mean Platelet Volume 6.8 fl (7.4-10.4); Monocytes # 0.6 K/mm3 (0.1-1.0); Monocytes % 13.3 % (1.7-9.3); Neutrophils # 2.7 K/mm3 (1.8-7.8); Neutrophils % 62.5 % (37.0-80.0); Platelet Count 374 K/mm3 (142-424); Red Blood Count 4.24 M/mm3 (4.60-6.20); Red Cell Distribution Width 15.4 % (11.5-17.5); White Blood Count 4.3 K/mm3 (4.8-10.8)
[2019-02-10 12:47] LABS: Alanine Aminotransferase 29 U/L (12-78); Albumin Level 3.7 gm/dL (3.4-5.0); Albumin/Globulin Ratio 0.9 (1.1-1.8); Alkaline Phosphatase 93 U/L (46-116); Anion Gap 10.1 mEq/L (5-15); Aspartate Amino Transferase 35 U/L (15-37); Bilirubin,Total 0.6 mg/dL (0.2-1.0); Blood Urea Nitrogen 11 mg/dL (7-18); Calcium 9.2 mg/dL (8.5-10.1); Carbon Dioxide 31 mmol/L (21.0-32.0); Chloride 101 mmol/L (98-107); Creatinine,Serum 1.03 mg/dL (0.70-1.30); Estimated Glomerular Filt Rate 70 ml/min (>60); GFR (African American) 85 ML/MIN (>60); Glucose 87 mg/dL (74-106); Potassium 4.1 mmoL/L (3.5-5.1); Sodium 138 mmol/L (136-145); Total Protein,Serum 7.7 gm/dL (6.4-8.2)
== END ==
PROVIDERS: Visit Provider Internal Medicine Medical Oncology
DX: C34.90 Malignant neoplasm of unspecified part of unspecified bronchus or lung (principal)
CPT/HCPCS: 36415; 80053; 85025

== ENCOUNTER → 2019-02-11 08:44 | Outpatient (CLI) | payer MEDICARE, OTHER, SELFPAY ==
--- NOTE | 2019-02-11 08:46 | CT_ITS ---
CT chest w con HISTORY: Follow-up lung cancer ITS.REASON: LUNG CA ORDERING PHYSICIAN: Roxane Quintero MD PATIENT AGE: 73 years COMPARISON: 11/17/2018 TECHNIQUE: Axial images obtained following the administration of 75 mL of Optiray 350 . Sagittal, and coronal reformatted images are also generated and reviewed. All CT scans at the facility use one or more dose reduction, viz: automated exposure control, ma/kV adjustment per patient size (including targeted exams where dose is matched to indication, i.e. head), or iterative reconstruction technique. FINDINGS: Small mediastinal and right hilar lymph nodes are once again noted. These do not appear significantly changed. The pleural-based mass in the right lower lobe superiorly is once again noted and appears very slightly smaller compared to the previous exam. Associated erosive changes of underlying seventh rib is sclerosis not significant change. The T11 lesion on the left is unchanged. 4 mm nodule in the right minor fissure is unchanged. Centrilobular emphysema with scattered fibrotic changes are stable. Calcified granuloma right lower lobe. No new nodules evident. IMPRESSION: 1. Pleural-based mass in the right lower lobe appears very slightly smaller with no change in the adjacent seventh rib mixed sclerotic and lytic lesion 2. No new findings are apparent.
--- NOTE | 2019-02-11 08:46 | CT_ITS ---
CT abdomen pelvis w con CLINICAL INDICATION: Follow-up metastatic lung cancer ITS.REASON: LUNG CA ORDERING PHYSICIAN: Roxane Quintero MD PATIENT AGE: 73 years COMPARISON: None TECHNIQUE: Axial images obtained with sagittal and coronal reformats. All CT scans at the facility use one or more dose reduction, viz: automated exposure control, ma/kV adjustment per patient size (including targeted exams where dose is matched to indication, i.e. head), or iterative reconstruction technique. PROCEDURE: Oral Contrast: Redicat IV Contrast: 75 mL's Optiray 350. FINDINGS: The liver, spleen, adrenal glands, pancreas, and kidneys have an unremarkable appearance. Postcholecystectomy change. No intestinal obstruction or free air. Unremarkable appendix. Prostate is enlarged. No evidence of diverticulitis. There are scattered colonic diverticula. There is thickening involving the hepatic flexure and transverse colon which could be due to nondistention versus colitis. Prior vertebral plasty at L3 destructive changes of the L3 vertebral body similar to the previous exam. Mild sclerosis involves the ilium on the right unchanged. Erosive change at T12 on the left at the facet appears slightly improved. No new lesions are clear. IMPRESSION: 1. No change in the L3 destructive changes with prior kyphoplasty. There are erosive changes in T12 on the left appears somewhat improved and the mild sclerosis on the right ilium is unchanged. 2. Nondistention versus colitis of the transverse colon. 3. No other changes apparent
== END ==
PROVIDERS: PCP Internal Medicine Adolescent Medicine; Visit Provider Internal Medicine Medical Oncology
DX: C34.91 Malignant neoplasm of unspecified part of right bronchus or lung (principal)
CPT/HCPCS: 71260; 74177; Q9967

== ENCOUNTER 2019-02-12 12:00 | Outpatient (CLI) | payer MEDICARE, OTHER, SELFPAY ==
[2019-02-12 12:26] VITALS: BMI 26.4
[2019-02-12 13:10] VITALS: BP 141/74; PULSE 70; RESP 18; TEMP 36.2; O2SAT 94
[2019-02-12 13:25] VITALS: BP 141/74; PULSE 71; RESP 18
[2019-02-12 13:40] VITALS: BP 142/76; PULSE 76; RESP 18
== END 2019-02-12 13:55 | disposition home or self-care (01) ==
LOC: INF 12:17
PROVIDERS: Visit Provider Internal Medicine Medical Oncology
DX: C34.91 Malignant neoplasm of unspecified part of right bronchus or lung (principal); Z51.11 Encounter for antineoplastic chemotherapy; Z79.899 Other long term (current) drug therapy
CPT/HCPCS: 84443; 96413; J9271

== ENCOUNTER 2019-03-05 10:20 | Outpatient (CLI) | payer MEDICARE, OTHER, SELFPAY ==
[2019-03-05 10:39] VITALS: BMI 28.6
[2019-03-05 10:55] LABS: Basophils % 0.4 % (0.1-2.0); Eosinophils # 0.7 K/mm3 (0.0-0.4); Eosinophils % 9.4 % (0.1-12.0); Hemoglobin 13.8 g/dL (14.1-18.0); Lymphocytes # 0.9 K/mm3 (0.7-4.5); Lymphocytes % 12.6 % (10-50); Mean Corpuscular HGB Conc 34.5 g/dL (31.8-35.4); Mean Corpuscular Hemoglobin 31.3 pg (27.0-31.2); Mean Corpuscular Volume 90.9 fl (80-94); Monocytes # 0.8 K/mm3 (0.1-1.0); Monocytes % 11.2 % (1.7-9.3); Neutrophils # 4.7 K/mm3 (1.8-7.8); Neutrophils % 66.3 % (37.0-80.0); Platelet Count 319 K/mm3 (142-424); Red Cell Distribution Width 14.1 % (11.5-17.5)
[2019-03-05 11:06] LABS: Alanine Aminotransferase 126 U/L (12-78); Albumin Level 3.3 gm/dL (3.4-5.0); Albumin/Globulin Ratio 0.8 (1.1-1.8); Alkaline Phosphatase 94 U/L (46-116); Anion Gap 11.2 mEq/L (5-15); Aspartate Amino Transferase 128 U/L (15-37); Bilirubin,Total 0.7 mg/dL (0.2-1.0); Blood Urea Nitrogen 12 mg/dL (7-18); Calcium 8.8 mg/dL (8.5-10.1); Carbon Dioxide 28 mmol/L (21.0-32.0); Chloride 103 mmol/L (98-107); Creatinine Clearance Estimated 82 mL/min (50-200); Creatinine,Serum 1.05 mg/dL (0.70-1.30); Estimated Glomerular Filt Rate 69 ml/min (>60); GFR (African American) 83 ML/MIN (>60); Globulin 4.2 gm/dl (1.3-3.2); Glucose 96 mg/dL (74-106); Potassium 3.2 mmoL/L (3.5-5.1); Sodium 139 mmol/L (136-145); Total Protein,Serum 7.5 gm/dL (6.4-8.2)
--- NOTE | 2019-03-05 14:38 | PC.NURSE ---
1140-pt was seen by in specialty clinic, treatment to be held today r/t low wbc. iv d/c per marvin deo rn.
== END 2019-03-05 11:40 | disposition home or self-care (01) ==
LOC: INF 10:22
PROVIDERS: Visit Provider Internal Medicine Medical Oncology
DX: C34.90 Malignant neoplasm of unspecified part of unspecified bronchus or lung (principal)
CPT/HCPCS: 80053; 85025

== ENCOUNTER → 2019-03-11 10:13 | Outpatient (CLI) | payer MEDICARE, OTHER, SELFPAY ==
[2019-03-11 10:42] LABS: Basophils % 0.4 % (0.1-2.0); Eosinophils % 17.5 % (0.1-12.0); Hematocrit 44.3 % (42.0-52.0); Hemoglobin 13.7 g/dL (14.1-18.0); Lymphocytes # 0.6 K/mm3 (0.7-4.5); Lymphocytes % 11.3 % (10-50); Mean Corpuscular HGB Conc 30.8 g/dL (31.8-35.4); Mean Corpuscular Hemoglobin 30.7 pg (27.0-31.2); Mean Corpuscular Volume 99.5 fl (80-94); Mean Platelet Volume 8.2 fl (7.4-10.4); Monocytes # 0.5 K/mm3 (0.1-1.0); Monocytes % 9.1 % (1.7-9.3); Neutrophils # 3.4 K/mm3 (1.8-7.8); Neutrophils % 61.7 % (37.0-80.0); Platelet Count 319 K/mm3 (142-424); Red Blood Count 4.45 M/mm3 (4.60-6.20); Red Cell Distribution Width 14.2 % (11.5-17.5); White Blood Count 5.5 K/mm3 (4.8-10.8)
[2019-03-11 15:09] LABS: Alanine Aminotransferase 107 U/L (12-78); Albumin Level 3.4 gm/dL (3.4-5.0); Albumin/Globulin Ratio 0.9 (1.1-1.8); Alkaline Phosphatase 97 U/L (46-116); Anion Gap 13.2 mEq/L (5-15); Aspartate Amino Transferase 116 U/L (15-37); Bilirubin,Total 0.6 mg/dL (0.2-1.0); Blood Urea Nitrogen 9 mg/dL (7-18); Calcium 9.2 mg/dL (8.5-10.1); Carbon Dioxide 28 mmol/L (21.0-32.0); Chloride 104 mmol/L (98-107); Creatinine,Serum 1.03 mg/dL (0.70-1.30); Estimated Glomerular Filt Rate 70 ml/min (>60); GFR (African American) 85 ML/MIN (>60); Globulin 3.8 gm/dl (1.3-3.2); Glucose 118 mg/dL (74-106); Potassium 4.2 mmoL/L (3.5-5.1); Sodium 141 mmol/L (136-145); Total Protein,Serum 7.2 gm/dL (6.4-8.2)
== END ==
PROVIDERS: Visit Provider Internal Medicine Medical Oncology
DX: C34.91 Malignant neoplasm of unspecified part of right bronchus or lung (principal)
CPT/HCPCS: 36415; 80053; 85025

== ENCOUNTER → 2019-04-01 08:54 | Outpatient (CLI) | payer MEDICARE, OTHER, SELFPAY ==
[2019-04-01 09:33] LABS: Basophils % 0.5 % (0.1-2.0); Eosinophils # 0.6 K/mm3 (0.0-0.4); Eosinophils % 10.5 % (0.1-12.0); Hematocrit 46.6 % (42.0-52.0); Hemoglobin 14.6 g/dL (14.1-18.0); Lymphocytes # 0.6 K/mm3 (0.7-4.5); Lymphocytes % 11.1 % (10-50); Mean Corpuscular HGB Conc 31.3 g/dL (31.8-35.4); Mean Corpuscular Hemoglobin 30.7 pg (27.0-31.2); Mean Corpuscular Volume 98.1 fl (80-94); Mean Platelet Volume 7.1 fl (7.4-10.4); Monocytes # 0.5 K/mm3 (0.1-1.0); Monocytes % 8.6 % (1.7-9.3); Neutrophils % 69.3 % (37.0-80.0); Platelet Count 334 K/mm3 (142-424); Red Blood Count 4.75 M/mm3 (4.60-6.20); Red Cell Distribution Width 13.4 % (11.5-17.5); White Blood Count 5.8 K/mm3 (4.8-10.8)
[2019-04-01 10:27] LABS: Alanine Aminotransferase 56 U/L (12-78); Albumin Level 3.5 gm/dL (3.4-5.0); Albumin/Globulin Ratio 0.9 (1.1-1.8); Alkaline Phosphatase 92 U/L (46-116); Aspartate Amino Transferase 65 U/L (15-37); Bilirubin,Total 0.7 mg/dL (0.2-1.0); Blood Urea Nitrogen 14 mg/dL (7-18); Carbon Dioxide 31 mmol/L (21.0-32.0); Chloride 103 mmol/L (98-107); Creatinine,Serum 1.12 mg/dL (0.70-1.30); Estimated Glomerular Filt Rate 64 ml/min (>60); GFR (African American) 77 ML/MIN (>60); Globulin 4.1 gm/dl (1.3-3.2); Glucose 115 mg/dL (74-106); Sodium 142 mmol/L (136-145); Total Protein,Serum 7.6 gm/dL (6.4-8.2)
== END ==
PROVIDERS: Visit Provider Internal Medicine Medical Oncology
DX: C34.90 Malignant neoplasm of unspecified part of unspecified bronchus or lung (principal)
CPT/HCPCS: 36415; 80053; 85025

== ENCOUNTER 2019-04-02 10:09 | Outpatient (CLI) | payer MEDICARE, OTHER, SELFPAY ==
[2019-04-02 10:55] VITALS: BP 149/90; PULSE 65; RESP 18; TEMP 36.5; O2SAT 97
[2019-04-02 11:25] VITALS: BP 152/88; PULSE 69; RESP 18; O2SAT 97
[2019-04-02 11:40] VITALS: BP 165/97; PULSE 66; RESP 18; O2SAT 98
== END 2019-04-02 11:40 | disposition home or self-care (01) ==
LOC: INF 10:14
PROVIDERS: Visit Provider Internal Medicine Medical Oncology
DX: Z51.11 Encounter for antineoplastic chemotherapy (principal); C34.91 Malignant neoplasm of unspecified part of right bronchus or lung
CPT/HCPCS: 96413; J9271

== ENCOUNTER → 2019-04-22 08:42 | Outpatient (CLI) | payer MEDICARE, OTHER, SELFPAY ==
[2019-04-22 09:24] LABS: Basophils % 0.4 % (0.1-2.0); Eosinophils # 0.5 K/mm3 (0.0-0.4); Eosinophils % 12.5 % (0.1-12.0); Hematocrit 44.6 % (42.0-52.0); Hemoglobin 14.3 g/dL (14.1-18.0); Lymphocytes # 0.6 K/mm3 (0.7-4.5); Lymphocytes % 15.4 % (10-50); Mean Corpuscular HGB Conc 32.1 g/dL (31.8-35.4); Mean Corpuscular Volume 90.5 fl (80-94); Mean Platelet Volume 6.9 fl (7.4-10.4); Monocytes # 0.4 K/mm3 (0.1-1.0); Monocytes % 9.3 % (1.7-9.3); Neutrophils # 2.4 K/mm3 (1.8-7.8); Neutrophils % 62.3 % (37.0-80.0); Platelet Count 256 K/mm3 (142-424); Red Blood Count 4.92 M/mm3 (4.60-6.20); Red Cell Distribution Width 12.7 % (11.5-17.5); White Blood Count 3.9 K/mm3 (4.8-10.8)
[2019-04-22 09:50] LABS: Alanine Aminotransferase 35 U/L (12-78); Albumin Level 3.3 gm/dL (3.4-5.0); Albumin/Globulin Ratio 0.8 (1.1-1.8); Alkaline Phosphatase 84 U/L (46-116); Anion Gap 10.7 mEq/L (5-15); Aspartate Amino Transferase 37 U/L (15-37); Bilirubin,Total 0.5 mg/dL (0.2-1.0); Blood Urea Nitrogen 12 mg/dL (7-18); Calcium 9.3 mg/dL (8.5-10.1); Carbon Dioxide 31 mmol/L (21.0-32.0); Chloride 104 mmol/L (98-107); Creatinine,Serum 1.17 mg/dL (0.70-1.30); Estimated Glomerular Filt Rate 61 ml/min (>60); GFR (African American) 74 ML/MIN (>60); Glucose 116 mg/dL (74-106); Potassium 3.7 mmoL/L (3.5-5.1); Sodium 142 mmol/L (136-145); Total Protein,Serum 7.3 gm/dL (6.4-8.2)
== END ==
PROVIDERS: Visit Provider Internal Medicine Medical Oncology
DX: C34.90 Malignant neoplasm of unspecified part of unspecified bronchus or lung (principal)
CPT/HCPCS: 36415; 80053; 85025

== ENCOUNTER 2019-04-23 14:48 | Outpatient (CLI) | payer MEDICARE, OTHER, SELFPAY ==
[2019-04-23 15:31] VITALS: BP 148/74; PULSE 78; RESP 20; TEMP 36.5; O2SAT 98
[2019-04-23 16:01] VITALS: BP 151/78; PULSE 74; RESP 20; O2SAT 97
[2019-04-23 16:20] VITALS: BP 144/79; PULSE 71; RESP 20; O2SAT 99
== END 2019-04-23 16:20 | disposition home or self-care (01) ==
LOC: INF 14:49
PROVIDERS: Visit Provider Internal Medicine Medical Oncology
DX: Z51.11 Encounter for antineoplastic chemotherapy (principal); C34.91 Malignant neoplasm of unspecified part of right bronchus or lung
CPT/HCPCS: 96413; J9271

== ENCOUNTER → 2019-05-13 08:21 | Outpatient (CLI) | payer MEDICARE, OTHER, SELFPAY ==
[2019-05-13 08:42] LABS: Basophils % 0.3 % (0.1-2.0); Eosinophils # 0.4 K/mm3 (0.0-0.4); Eosinophils % 8.2 % (0.1-12.0); Hematocrit 45.6 % (42.0-52.0); Lymphocytes # 0.8 K/mm3 (0.7-4.5); Lymphocytes % 16.3 % (10-50); Mean Corpuscular HGB Conc 32.8 g/dL (31.8-35.4); Mean Corpuscular Hemoglobin 29.8 pg (27.0-31.2); Mean Corpuscular Volume 90.9 fl (80-94); Mean Platelet Volume 7.2 fl (7.4-10.4); Monocytes # 0.6 K/mm3 (0.1-1.0); Monocytes % 10.9 % (1.7-9.3); Neutrophils # 3.3 K/mm3 (1.8-7.8); Neutrophils % 64.2 % (37.0-80.0); Platelet Count 332 K/mm3 (142-424); Red Blood Count 5.02 M/mm3 (4.60-6.20); Red Cell Distribution Width 13.1 % (11.5-17.5); White Blood Count 5.1 K/mm3 (4.8-10.8)
[2019-05-13 11:35] LABS: Alanine Aminotransferase 23 U/L (12-78); Albumin Level 3.4 gm/dL (3.4-5.0); Albumin/Globulin Ratio 0.9 (1.1-1.8); Alkaline Phosphatase 86 U/L (46-116); Anion Gap 10.5 mEq/L (5-15); Aspartate Amino Transferase 23 U/L (15-37); Bilirubin,Total 0.6 mg/dL (0.2-1.0); Blood Urea Nitrogen 12 mg/dL (7-18); Calcium 9.1 mg/dL (8.5-10.1); Carbon Dioxide 31 mmol/L (21.0-32.0); Chloride 102 mmol/L (98-107); Creatinine,Serum 1.07 mg/dL (0.70-1.30); Estimated Glomerular Filt Rate 67 ml/min (>60); GFR (African American) 82 ML/MIN (>60); Glucose 99 mg/dL (74-106); Potassium 3.5 mmoL/L (3.5-5.1); Sodium 140 mmol/L (136-145); Total Protein,Serum 7.4 gm/dL (6.4-8.2)
== END ==
PROVIDERS: Visit Provider Internal Medicine Medical Oncology
DX: C34.91 Malignant neoplasm of unspecified part of right bronchus or lung (principal)
CPT/HCPCS: 36415; 80053; 85025

== ENCOUNTER 2019-05-14 12:05 | Outpatient (CLI) | payer MEDICARE, OTHER, SELFPAY ==
[2019-05-14 12:29] VITALS: BP 180/96; PULSE 76; RESP 20; TEMP 36.6; O2SAT 98
[2019-05-14 12:59] VITALS: BP 177/92; PULSE 78; RESP 20; O2SAT 98
[2019-05-14 13:15] VITALS: BP 182/96; PULSE 77; RESP 20; O2SAT 98
== END 2019-05-14 13:15 | disposition home or self-care (01) ==
LOC: INF 12:06
PROVIDERS: Visit Provider Internal Medicine Medical Oncology
DX: C34.90 Malignant neoplasm of unspecified part of unspecified bronchus or lung (principal)
CPT/HCPCS: 96413; J9271

== ENCOUNTER → 2019-06-03 09:06 | Outpatient (CLI) | payer MEDICARE, OTHER, SELFPAY ==
[2019-06-03 09:36] LABS: Basophils % 0.2 % (0.1-2.0); Eosinophils # 0.3 K/mm3 (0.0-0.4); Eosinophils % 6.3 % (0.1-12.0); Hematocrit 47.4 % (42.0-52.0); Hemoglobin 15.3 g/dL (14.1-18.0); Lymphocytes # 0.7 K/mm3 (0.7-4.5); Lymphocytes % 13.5 % (10-50); Mean Corpuscular HGB Conc 32.3 g/dL (31.8-35.4); Mean Corpuscular Hemoglobin 29.3 pg (27.0-31.2); Mean Corpuscular Volume 90.9 fl (80-94); Mean Platelet Volume 7.1 fl (7.4-10.4); Monocytes # 0.5 K/mm3 (0.1-1.0); Monocytes % 8.4 % (1.7-9.3); Neutrophils # 3.8 K/mm3 (1.8-7.8); Neutrophils % 71.5 % (37.0-80.0); Platelet Count 302 K/mm3 (142-424); Red Blood Count 5.21 M/mm3 (4.60-6.20); Red Cell Distribution Width 13.2 % (11.5-17.5); White Blood Count 5.3 K/mm3 (4.8-10.8)
[2019-06-03 11:19] LABS: Alanine Aminotransferase 20 U/L (12-78); Albumin Level 3.5 gm/dL (3.4-5.0); Albumin/Globulin Ratio 0.9 (1.1-1.8); Alkaline Phosphatase 76 U/L (46-116); Anion Gap 7.8 mEq/L (5-15); Aspartate Amino Transferase 23 U/L (15-37); Bilirubin,Total 0.7 mg/dL (0.2-1.0); Blood Urea Nitrogen 11 mg/dL (7-18); Calcium 9.1 mg/dL (8.5-10.1); Carbon Dioxide 33 mmol/L (21.0-32.0); Chloride 103 mmol/L (98-107); Creatinine,Serum 1.12 mg/dL (0.70-1.30); Estimated Glomerular Filt Rate 64 ml/min (>60); GFR (African American) 77 ML/MIN (>60); Globulin 3.7 gm/dl (1.3-3.2); Glucose 94 mg/dL (74-106); Potassium 3.8 mmoL/L (3.5-5.1); Sodium 140 mmol/L (136-145); Total Protein,Serum 7.2 gm/dL (6.4-8.2)
== END ==
PROVIDERS: Visit Provider Internal Medicine Medical Oncology
DX: C34.90 Malignant neoplasm of unspecified part of unspecified bronchus or lung (principal)
CPT/HCPCS: 36415; 80053; 85025

== ENCOUNTER 2019-06-04 11:04 | Outpatient (CLI) | payer MEDICARE, OTHER, SELFPAY ==
[2019-06-04 11:30] VITALS: BP 155/93; PULSE 68; RESP 18; TEMP 36.6; O2SAT 98
[2019-06-04 11:45] VITALS: BP 152/88; PULSE 66; RESP 18
[2019-06-04 12:00] VITALS: BP 151/92; PULSE 63; RESP 18
[2019-06-04 12:20] VITALS: BP 147/96; PULSE 69; RESP 18
== END 2019-06-04 12:10 | disposition home or self-care (01) ==
LOC: INF 11:04
PROVIDERS: Visit Provider Internal Medicine Medical Oncology
DX: Z51.11 Encounter for antineoplastic chemotherapy (principal); C34.91 Malignant neoplasm of unspecified part of right bronchus or lung
CPT/HCPCS: 96413; J9271

== ENCOUNTER → 2019-06-23 07:33 | Outpatient (CLI) | payer MEDICARE, OTHER, SELFPAY ==
[2019-06-23 08:02] LABS: Basophils % 0.4 % (0.1-2.0); Eosinophils # 0.5 K/mm3 (0.0-0.4); Eosinophils % 8.9 % (0.1-12.0); Hematocrit 45.9 % (42.0-52.0); Lymphocytes # 0.6 K/mm3 (0.7-4.5); Lymphocytes % 11.1 % (10-50); Mean Corpuscular HGB Conc 32.6 g/dL (31.8-35.4); Mean Corpuscular Hemoglobin 29.3 pg (27.0-31.2); Mean Corpuscular Volume 89.8 fl (80-94); Mean Platelet Volume 6.9 fl (7.4-10.4); Monocytes # 0.4 K/mm3 (0.1-1.0); Monocytes % 7.8 % (1.7-9.3); Neutrophils # 3.8 K/mm3 (1.8-7.8); Neutrophils % 71.7 % (37.0-80.0); Platelet Count 314 K/mm3 (142-424); Red Blood Count 5.11 M/mm3 (4.60-6.20); Red Cell Distribution Width 13.5 % (11.5-17.5); White Blood Count 5.3 K/mm3 (4.8-10.8)
[2019-06-23 09:59] LABS: Alanine Aminotransferase 18 U/L (12-78); Albumin Level 3.5 gm/dL (3.4-5.0); Alkaline Phosphatase 76 U/L (46-116); Anion Gap 11.4 mEq/L (5-15); Aspartate Amino Transferase 24 U/L (15-37); Bilirubin,Total 0.6 mg/dL (0.2-1.0); Blood Urea Nitrogen 12 mg/dL (7-18); Calcium 8.9 mg/dL (8.5-10.1); Carbon Dioxide 30 mmol/L (21.0-32.0); Chloride 103 mmol/L (98-107); Creatinine,Serum 1.13 mg/dL (0.70-1.30); Estimated Glomerular Filt Rate 63 ml/min (>60); GFR (African American) 77 ML/MIN (>60); Globulin 3.6 gm/dl (1.3-3.2); Glucose 158 mg/dL (74-106); Potassium 3.4 mmoL/L (3.5-5.1); Sodium 141 mmol/L (136-145); Total Protein,Serum 7.1 gm/dL (6.4-8.2)
== END ==
PROVIDERS: Visit Provider Internal Medicine Medical Oncology
DX: C34.91 Malignant neoplasm of unspecified part of right bronchus or lung (principal)
CPT/HCPCS: 36415; 80053; 85025

== ENCOUNTER 2019-06-25 09:42 | Outpatient (CLI) | payer MEDICARE, OTHER, SELFPAY ==
[2019-06-25 10:30] VITALS: BP 153/91; PULSE 57; RESP 18; O2SAT 93
[2019-06-25 10:50] VITALS: BP 145/91; PULSE 56; RESP 18; O2SAT 92
[2019-06-25 11:18] VITALS: BP 157/92; PULSE 57; RESP 18; O2SAT 94
== END 2019-06-25 11:18 | disposition home or self-care (01) ==
LOC: INF 09:42
PROVIDERS: Visit Provider Internal Medicine Medical Oncology
DX: C34.91 Malignant neoplasm of unspecified part of right bronchus or lung (principal); Z51.11 Encounter for antineoplastic chemotherapy; Z87.891 Personal history of nicotine dependence
CPT/HCPCS: 96413; J9271

== ENCOUNTER → 2019-07-14 09:32 | Outpatient (CLI) | payer MEDICARE, OTHER, SELFPAY ==
[2019-07-14 10:15] LABS: Basophils % 0.3 % (0.1-2.0); Eosinophils # 0.4 K/mm3 (0.0-0.4); Eosinophils % 4.8 % (0.1-12.0); Hematocrit 49.3 % (42.0-52.0); Hemoglobin 15.4 g/dL (14.1-18.0); Lymphocytes # 0.8 K/mm3 (0.7-4.5); Mean Corpuscular HGB Conc 31.3 g/dL (31.8-35.4); Mean Corpuscular Hemoglobin 28.7 pg (27.0-31.2); Mean Corpuscular Volume 91.6 fl (80-94); Monocytes # 0.7 K/mm3 (0.1-1.0); Monocytes % 8.3 % (1.7-9.3); Neutrophils # 6.1 K/mm3 (1.8-7.8); Neutrophils % 76.6 % (37.0-80.0); Platelet Count 365 K/mm3 (142-424); Red Blood Count 5.38 M/mm3 (4.60-6.20); Red Cell Distribution Width 14.1 % (11.5-17.5); White Blood Count 7.9 K/mm3 (4.8-10.8)
[2019-07-14 11:50] LABS: Alanine Aminotransferase 12 U/L (12-78); Albumin Level 3.8 gm/dL (3.4-5.0); Alkaline Phosphatase 88 U/L (46-116); Anion Gap 13.9 mEq/L (5-15); Aspartate Amino Transferase 17 U/L (15-37); Bilirubin,Total 0.9 mg/dL (0.2-1.0); Blood Urea Nitrogen 10 mg/dL (7-18); Calcium 9.3 mg/dL (8.5-10.1); Carbon Dioxide 30 mmol/L (21.0-32.0); Chloride 100 mmol/L (98-107); Creatinine,Serum 0.94 mg/dL (0.70-1.30); Estimated Glomerular Filt Rate 78 ml/min (>60); GFR (African American) 95 ML/MIN (>60); Glucose 93 mg/dL (74-106); Potassium 3.9 mmoL/L (3.5-5.1); Sodium 140 mmol/L (136-145); Thyroid Stimulating Hormone 0.28 uIU/ml (0.358-3.740); Total Protein,Serum 7.8 gm/dL (6.4-8.2)
== END ==
PROVIDERS: Visit Provider Internal Medicine Medical Oncology
DX: C34.91 Malignant neoplasm of unspecified part of right bronchus or lung (principal); Z85.850 Personal history of malignant neoplasm of thyroid
CPT/HCPCS: 36415; 80053; 84443; 85025

== ENCOUNTER 2019-07-16 10:15 | Outpatient (CLI) | payer MEDICARE, OTHER, SELFPAY ==
[2019-07-16 10:14] VITALS: BMI 28.4
[2019-07-16 10:55] VITALS: BP 168/100; PULSE 62; RESP 20; O2SAT 96
[2019-07-16 11:10] VITALS: BP 160/96; PULSE 64; RESP 18
[2019-07-16 11:24] LABS: Thyroid Stimulating Hormone 0.29 uIU/ml (0.358-3.740)
[2019-07-16 11:25] VITALS: BP 156/89; PULSE 63; RESP 18
[2019-07-17 17:08] LABS: Adrenocorticotropic Hormone 12.2 pg/mL (7.2-63.3)
== END 2019-07-16 11:40 | disposition home or self-care (01) ==
LOC: INF 10:15
PROVIDERS: Visit Provider Internal Medicine Medical Oncology
DX: Z51.11 Encounter for antineoplastic chemotherapy (principal); C34.91 Malignant neoplasm of unspecified part of right bronchus or lung; Z79.899 Other long term (current) drug therapy
CPT/HCPCS: 82024; 82533; 84443; 96413; J9271

== ENCOUNTER → 2019-07-31 07:50 | Outpatient (CLI) | payer MEDICARE, OTHER, SELFPAY ==
[2019-07-31 08:17] LABS: Basophils % 0.2 % (0.1-2.0); Eosinophils # 0.6 K/mm3 (0.0-0.4); Eosinophils % 8.9 % (0.1-12.0); Hematocrit 45.3 % (42.0-52.0); Hemoglobin 14.8 g/dL (14.1-18.0); Lymphocytes # 0.8 K/mm3 (0.7-4.5); Lymphocytes % 10.5 % (10-50); Mean Corpuscular HGB Conc 32.8 g/dL (31.8-35.4); Mean Corpuscular Hemoglobin 29.3 pg (27.0-31.2); Mean Corpuscular Volume 89.5 fl (80-94); Mean Platelet Volume 7.7 fl (7.4-10.4); Monocytes # 0.6 K/mm3 (0.1-1.0); Monocytes % 7.9 % (1.7-9.3); Neutrophils # 5.1 K/mm3 (1.8-7.8); Neutrophils % 72.5 % (37.0-80.0); Platelet Count 377 K/mm3 (142-424); Red Blood Count 5.06 M/mm3 (4.60-6.20); Red Cell Distribution Width 13.6 % (11.5-17.5); White Blood Count 7.1 K/mm3 (4.8-10.8)
[2019-07-31 10:07] LABS: Alanine Aminotransferase 12 U/L (12-78); Albumin Level 3.5 gm/dL (3.4-5.0); Alkaline Phosphatase 76 U/L (46-116); Anion Gap 9.5 mEq/L (5-15); Aspartate Amino Transferase 17 U/L (15-37); Bilirubin,Total 0.6 mg/dL (0.2-1.0); Blood Urea Nitrogen 14 mg/dL (7-18); Calcium 9.2 mg/dL (8.5-10.1); Carbon Dioxide 31 mmol/L (21.0-32.0); Chloride 100 mmol/L (98-107); Creatinine,Serum 1.06 mg/dL (0.70-1.30); Estimated Glomerular Filt Rate 68 ml/min (>60); GFR (African American) 82 ML/MIN (>60); Globulin 3.6 gm/dl (1.3-3.2); Glucose 103 mg/dL (74-106); Potassium 3.5 mmoL/L (3.5-5.1); Sodium 137 mmol/L (136-145); Thyroid Stimulating Hormone 1.85 uIU/ml (0.358-3.740); Total Protein,Serum 7.1 gm/dL (6.4-8.2)
[2019-08-04 12:54] LABS: Adrenocorticotropic Hormone 13.5 pg/mL (7.2-63.3)
== END ==
PROVIDERS: Visit Provider Internal Medicine Medical Oncology
DX: C34.90 Malignant neoplasm of unspecified part of unspecified bronchus or lung (principal); Z79.899 Other long term (current) drug therapy
CPT/HCPCS: 36415; 80053; 82024; 82533; 84443; 85025

== ENCOUNTER → 2019-08-03 11:03 | Outpatient (CLI) | payer MEDICARE, OTHER, SELFPAY ==
--- NOTE | 2019-08-03 11:15 | CT_ITS ---
PROCEDURE: CT CHEST W CON CLINCAL INDICATION: LUNG CA Follow-up lung cancer COMPARISON: CHESTW CT chest w con from 11/17/[address] chest w con from 02/11/2019 CT ABDOMEN PELVIS W CON from 08/03/2019 TECHNIQUE: IV Contrast: 75ml Optiray 350 Axial images obtained with sagittal and coronal reformats. All CT scans at the facility use one or more dose reduction, viz: automated exposure control, ma/kV adjustment per patient size (including targeted exams where dose is matched to indication, i.e. head), or iterative reconstruction technique. FINDINGS: Scattered small lymph nodes are present within the mediastinum which are not felt to be significantly changed. There are coronary artery calcifications. Normal heart size. No evidence of pericardial effusion. COPD changes with scarring the posterior pleural-based density in the right lower lobe is once again noted associated with a mixed sclerotic/lytic lesion of the right 7th rib probably not significantly changed. There is a small pleural-based opacity the along superior segment left lower lobe posteriorly at 5 mm not readily apparent on the previous exam. This however is a nonspecific finding and could be due to small area of atelectasis. Continued follow-up is suggested. No lobar consolidation or collapse. IMPRESSION: Overall no significant change in the pleural-based mass posteriorly in the right lower lobe with adjacent 7th rib mixed sclerotic and lytic lesion. There is a small pleural-based nodule along the posterior aspect of the superior segment of the left lower lobe not readily apparent on the previous exam. This is nonspecific finding and continued follow-up is suggested. Dictated by: Riky Orona MD 08/05/2019 05:27 Electronically signed by Riky Orona MD in [place] 08/05/2019 05:27
--- NOTE | 2019-08-03 11:15 | CT_ITS ---
PROCEDURE: CT ABDOMEN PELVIS W CON CLINICAL INDICATION: LUNG CA Follow-up lung cancer COMPARISON: ABDPEL CT abdomen pelvis w con from 02/11/2019 TECHNIQUE: IV Contrast: 75ML OPTIRAY 350 Oral Contrast 450ml Redicat Axial images obtained with sagittal and coronal reformats. All CT scans at the facility use one or more dose reduction, viz: automated exposure control, ma/kV adjustment per patient size (including targeted exams where dose is matched to indication, i.e. head), or iterative reconstruction technique. FINDINGS: Lower thorax: No acute finding. Coronary artery calcifications are noted. ABDOMEN & PELVIS: Post cholecystectomy. No focal liver lesions. The spleen, adrenal glands, pancreas, and kidneys have an unremarkable appearance. Unremarkable appendix. No intestinal obstruction or free air. Scattered colonic diverticula. No evidence of diverticulitis. Prostate is enlarged at 5.7 cm. Prior vertebroplasty with mild compression involving the L3 vertebral body not significantly changed. Mild sclerotic changes of the ilium on the right unchanged. Erosive change of T12 facet on the left unchanged. No new bony lesions evident. IMPRESSION: Overall no significant change with no acute finding. Stable CT appearance of the abdomen pelvis compared to the previous exam. Dictated by: Riky Orona MD 08/03/2019 16:42 Electronically signed by Riky Orona MD in [facility] 08/04/2019 06:41
== END ==
PROVIDERS: PCP Internal Medicine Adolescent Medicine; Visit Provider Internal Medicine Medical Oncology
DX: C34.90 Malignant neoplasm of unspecified part of unspecified bronchus or lung (principal); Z03.89 Encounter for observation for other suspected diseases and conditions ruled out
CPT/HCPCS: 71260; 74177; Q9967

== ENCOUNTER 2019-08-07 11:10 | Outpatient (CLI) | payer MEDICARE, OTHER, SELFPAY ==
[2019-08-07 12:05] VITALS: BP 140/79; PULSE 62; RESP 18; TEMP 36.2; O2SAT 97
[2019-08-07 12:20] VITALS: BP 134/71; PULSE 71; RESP 18
[2019-08-07 12:35] VITALS: BP 140/72; PULSE 61; RESP 20
== END 2019-08-07 12:50 | disposition home or self-care (01) ==
LOC: INF 11:21
PROVIDERS: Visit Provider Internal Medicine Medical Oncology
DX: Z51.11 Encounter for antineoplastic chemotherapy (principal); C34.90 Malignant neoplasm of unspecified part of unspecified bronchus or lung
CPT/HCPCS: 96413; J9271

== ENCOUNTER → 2019-08-25 07:40 | Outpatient (CLI) | payer MEDICARE, OTHER, SELFPAY ==
[2019-08-25 08:13] LABS: Basophils % 0.2 % (0.1-2.0); Eosinophils # 0.4 K/mm3 (0.0-0.4); Eosinophils % 6.9 % (0.1-12.0); Hematocrit 43.7 % (42.0-52.0); Hemoglobin 14.3 g/dL (14.1-18.0); Lymphocytes # 0.7 K/mm3 (0.7-4.5); Lymphocytes % 11.7 % (10-50); Mean Corpuscular HGB Conc 32.6 g/dL (31.8-35.4); Mean Corpuscular Hemoglobin 29.7 pg (27.0-31.2); Mean Corpuscular Volume 91.2 fl (80-94); Mean Platelet Volume 7.6 fl (7.4-10.4); Monocytes # 0.4 K/mm3 (0.1-1.0); Monocytes % 7.3 % (1.7-9.3); Neutrophils # 4.3 K/mm3 (1.8-7.8); Neutrophils % 73.9 % (37.0-80.0); Platelet Count 340 K/mm3 (142-424); Red Blood Count 4.79 M/mm3 (4.60-6.20); Red Cell Distribution Width 14.2 % (11.5-17.5); White Blood Count 5.8 K/mm3 (4.8-10.8)
[2019-08-25 09:30] LABS: Alanine Aminotransferase 13 U/L (12-78); Albumin Level 3.4 gm/dL (3.4-5.0); Alkaline Phosphatase 76 U/L (46-116); Anion Gap 9.2 mEq/L (5-15); Aspartate Amino Transferase 19 U/L (15-37); Bilirubin,Total 0.6 mg/dL (0.2-1.0); Blood Urea Nitrogen 12 mg/dL (7-18); Calcium 8.8 mg/dL (8.5-10.1); Carbon Dioxide 31 mmol/L (21.0-32.0); Chloride 100 mmol/L (98-107); Creatinine,Serum 1.03 mg/dL (0.70-1.30); Estimated Glomerular Filt Rate 70 ml/min (>60); GFR (African American) 85 ML/MIN (>60); Globulin 3.5 gm/dl (1.3-3.2); Glucose 122 mg/dL (74-106); Potassium 3.2 mmoL/L (3.5-5.1); Sodium 137 mmol/L (136-145); Thyroid Stimulating Hormone 6.31 uIU/ml (0.358-3.740); Total Protein,Serum 6.9 gm/dL (6.4-8.2)
[2019-08-28 09:16] LABS: Adrenocorticotropic Hormone 14.5 pg/mL (7.2-63.3)
== END ==
PROVIDERS: Visit Provider Internal Medicine Medical Oncology
DX: C34.90 Malignant neoplasm of unspecified part of unspecified bronchus or lung (principal); Z79.899 Other long term (current) drug therapy
CPT/HCPCS: 36415; 80053; 82024; 82533; 84443; 85025

== ENCOUNTER 2019-08-27 09:28 | Outpatient (CLI) | payer MEDICARE, OTHER, SELFPAY ==
[2019-08-27 09:29] VITALS: BMI 25.3
[2019-08-27 10:20] VITALS: BP 155/100; PULSE 59; RESP 18; TEMP 36.6; O2SAT 96
[2019-08-27 10:35] VITALS: BP 155/96; PULSE 59; RESP 18
[2019-08-27 11:08] VITALS: BP 141/82; PULSE 60; RESP 18; TEMP 36.6
[2019-08-27 15:37] VITALS: BP 145/83; PULSE 59; RESP 18
[2019-08-28 17:21] LABS: Adrenocorticotropic Hormone 16.6 pg/mL (7.2-63.3)
== END 2019-08-27 11:08 | disposition home or self-care (01) ==
LOC: INF 09:28
PROVIDERS: Visit Provider Internal Medicine Medical Oncology
DX: Z51.11 Encounter for antineoplastic chemotherapy (principal); C34.90 Malignant neoplasm of unspecified part of unspecified bronchus or lung
CPT/HCPCS: 82024; 96413; J9271

== ENCOUNTER → 2019-09-15 08:17 | Outpatient (CLI) | payer MEDICARE, OTHER, SELFPAY ==
[2019-09-15 09:04] LABS: Basophils % 0.4 % (0.1-2.0); Eosinophils # 0.5 K/mm3 (0.0-0.4); Eosinophils % 7.4 % (0.1-12.0); Hematocrit 47.2 % (42.0-52.0); Hemoglobin 15.1 g/dL (14.1-18.0); Lymphocytes # 0.7 K/mm3 (0.7-4.5); Lymphocytes % 10.5 % (10-50); Mean Corpuscular Hemoglobin 29.7 pg (27.0-31.2); Mean Corpuscular Volume 92.7 fl (80-94); Mean Platelet Volume 7.1 fl (7.4-10.4); Monocytes # 0.6 K/mm3 (0.1-1.0); Monocytes % 8.5 % (1.7-9.3); Neutrophils % 73.2 % (37.0-80.0); Platelet Count 396 K/mm3 (142-424); Red Blood Count 5.09 M/mm3 (4.60-6.20); Red Cell Distribution Width 13.8 % (11.5-17.5); White Blood Count 6.8 K/mm3 (4.8-10.8)
[2019-09-15 09:32] LABS: Alanine Aminotransferase 12 U/L (12-78); Albumin Level 3.5 gm/dL (3.4-5.0); Albumin/Globulin Ratio 0.9 (1.1-1.8); Alkaline Phosphatase 79 U/L (46-116); Anion Gap 10.5 mEq/L (5-15); Aspartate Amino Transferase 14 U/L (15-37); Bilirubin,Total 0.5 mg/dL (0.2-1.0); Blood Urea Nitrogen 13 mg/dL (7-18); Calcium 8.7 mg/dL (8.5-10.1); Carbon Dioxide 32 mmol/L (21.0-32.0); Chloride 98 mmol/L (98-107); Creatinine,Serum 1.06 mg/dL (0.70-1.30); Estimated Glomerular Filt Rate 68 ml/min (>60); GFR (African American) 82 ML/MIN (>60); Globulin 3.8 gm/dl (1.3-3.2); Glucose 95 mg/dL (74-106); Potassium 3.5 mmoL/L (3.5-5.1); Sodium 137 mmol/L (136-145); Thyroid Stimulating Hormone 10.09 uIU/ml (0.358-3.740); Total Protein,Serum 7.3 gm/dL (6.4-8.2)
[2019-09-16 15:31] LABS: Adrenocorticotropic Hormone 27.2 pg/mL (7.2-63.3)
== END ==
PROVIDERS: Visit Provider Internal Medicine Medical Oncology
DX: C34.90 Malignant neoplasm of unspecified part of unspecified bronchus or lung (principal); Z79.899 Other long term (current) drug therapy
CPT/HCPCS: 36415; 80053; 82024; 82533; 84443; 85025

== ENCOUNTER → 2019-10-13 09:11 | Outpatient (CLI) | payer MEDICARE, OTHER, SELFPAY ==
[2019-10-13 10:44] LABS: Basophils % 0.2 % (0.1-2.0); Eosinophils # 0.6 K/mm3 (0.0-0.4); Eosinophils % 6.8 % (0.1-12.0); Hematocrit 43.3 % (42.0-52.0); Hemoglobin 14.6 g/dL (14.1-18.0); Lymphocytes # 0.8 K/mm3 (0.7-4.5); Lymphocytes % 8.7 % (10-50); Mean Corpuscular HGB Conc 33.7 g/dL (31.8-35.4); Mean Corpuscular Hemoglobin 29.6 pg (27.0-31.2); Mean Corpuscular Volume 87.9 fl (80-94); Mean Platelet Volume 7.6 fl (7.4-10.4); Monocytes # 0.7 K/mm3 (0.1-1.0); Monocytes % 8.4 % (1.7-9.3); Neutrophils # 6.6 K/mm3 (1.8-7.8); Neutrophils % 75.9 % (37.0-80.0); Platelet Count 411 K/mm3 (142-424); Red Blood Count 4.93 M/mm3 (4.60-6.20); Red Cell Distribution Width 13.2 % (11.5-17.5); White Blood Count 8.6 K/mm3 (4.8-10.8)
[2019-10-13 12:03] LABS: Alanine Aminotransferase 8 U/L (12-78); Albumin Level 3.5 gm/dL (3.4-5.0); Alkaline Phosphatase 90 U/L (46-116); Anion Gap 10.5 mEq/L (5-15); Aspartate Amino Transferase 15 U/L (15-37); Bilirubin,Total 0.6 mg/dL (0.2-1.0); Blood Urea Nitrogen 14 mg/dL (7-18); Calcium 8.6 mg/dL (8.5-10.1); Carbon Dioxide 31 mmol/L (21.0-32.0); Chloride 98 mmol/L (98-107); Estimated Glomerular Filt Rate 73 ml/min (>60); GFR (African American) 88 ML/MIN (>60); Globulin 3.5 gm/dl (1.3-3.2); Glucose 93 mg/dL (74-106); Potassium 3.5 mmoL/L (3.5-5.1); Sodium 136 mmol/L (136-145); Thyroid Stimulating Hormone 0.93 uIU/ml (0.358-3.740)
== END ==
PROVIDERS: Visit Provider Internal Medicine Medical Oncology
DX: C34.90 Malignant neoplasm of unspecified part of unspecified bronchus or lung (principal); Z79.899 Other long term (current) drug therapy
CPT/HCPCS: 36415; 80053; 82024; 82533; 84443; 85025

== ENCOUNTER 2019-10-15 11:20 | Outpatient (CLI) | payer MEDICARE, OTHER, SELFPAY ==
[2019-10-15 12:05] VITALS: BP 128/74; PULSE 88; RESP 18; TEMP 36.6; O2SAT 97
[2019-10-15 12:20] VITALS: BP 128/74; PULSE 72; RESP 18
[2019-10-15 12:35] VITALS: BP 131/76; PULSE 73; RESP 18
== END 2019-10-15 12:50 | disposition home or self-care (01) ==
LOC: INF 11:21
PROVIDERS: Visit Provider Internal Medicine Medical Oncology
DX: C34.91 Malignant neoplasm of unspecified part of right bronchus or lung (principal)
CPT/HCPCS: 96413; J9271

== ENCOUNTER → 2019-11-03 07:28 | Outpatient (CLI) | payer MEDICARE, OTHER, SELFPAY ==
[2019-11-03 07:50] LABS: Basophils % 0.4 % (0.1-2.0); Eosinophils # 0.5 K/mm3 (0.0-0.4); Eosinophils % 6.3 % (0.1-12.0); Hematocrit 43.4 % (42.0-52.0); Hemoglobin 14.6 g/dL (14.1-18.0); Lymphocytes # 0.9 K/mm3 (0.7-4.5); Lymphocytes % 10.5 % (10-50); Mean Corpuscular HGB Conc 33.6 g/dL (31.8-35.4); Mean Corpuscular Hemoglobin 29.5 pg (27.0-31.2); Mean Corpuscular Volume 87.7 fl (80-94); Mean Platelet Volume 7.8 fl (7.4-10.4); Monocytes # 0.7 K/mm3 (0.1-1.0); Monocytes % 9.1 % (1.7-9.3); Neutrophils % 73.7 % (37.0-80.0); Platelet Count 405 K/mm3 (142-424); Red Blood Count 4.95 M/mm3 (4.60-6.20); Red Cell Distribution Width 13.1 % (11.5-17.5); White Blood Count 8.2 K/mm3 (4.8-10.8)
[2019-11-03 08:45] LABS: Alanine Aminotransferase 13 U/L (12-78); Albumin Level 3.5 gm/dL (3.4-5.0); Albumin/Globulin Ratio 0.9 (1.1-1.8); Alkaline Phosphatase 89 U/L (46-116); Anion Gap 12.7 mEq/L (5-15); Aspartate Amino Transferase 25 U/L (15-37); Bilirubin,Total 0.6 mg/dL (0.2-1.0); Blood Urea Nitrogen 12 mg/dL (7-18); Calcium 9.4 mg/dL (8.5-10.1); Carbon Dioxide 31 mmol/L (21.0-32.0); Chloride 99 mmol/L (98-107); Creatinine,Serum 1.07 mg/dL (0.70-1.30); Estimated Glomerular Filt Rate 67 ml/min (>60); GFR (African American) 81 ML/MIN (>60); Globulin 3.7 gm/dl (1.3-3.2); Glucose 94 mg/dL (74-106); Potassium 3.7 mmoL/L (3.5-5.1); Sodium 139 mmol/L (136-145); Total Protein,Serum 7.2 gm/dL (6.4-8.2)
== END ==
PROVIDERS: Visit Provider Internal Medicine Medical Oncology
DX: C34.91 Malignant neoplasm of unspecified part of right bronchus or lung (principal)
CPT/HCPCS: 36415; 80053; 85025

== ENCOUNTER → 2019-11-24 09:04 | Outpatient (CLI) | payer MEDICARE, OTHER, SELFPAY ==
[2019-11-24 09:27] LABS: Basophils % 0.5 % (0.1-2.0); Eosinophils # 0.5 K/mm3 (0.0-0.4); Eosinophils % 6.7 % (0.1-12.0); Hematocrit 42.3 % (42.0-52.0); Hemoglobin 14.5 g/dL (14.1-18.0); Lymphocytes # 0.7 K/mm3 (0.7-4.5); Lymphocytes % 10.7 % (10-50); Mean Corpuscular HGB Conc 34.2 g/dL (31.8-35.4); Mean Corpuscular Hemoglobin 29.8 pg (27.0-31.2); Mean Corpuscular Volume 87.1 fl (80-94); Mean Platelet Volume 8.2 fl (7.4-10.4); Monocytes # 0.5 K/mm3 (0.1-1.0); Monocytes % 7.2 % (1.7-9.3); Neutrophils # 5.2 K/mm3 (1.8-7.8); Neutrophils % 74.9 % (37.0-80.0); Platelet Count 378 K/mm3 (142-424); Red Blood Count 4.86 M/mm3 (4.60-6.20); Red Cell Distribution Width 13.1 % (11.5-17.5); White Blood Count 6.9 K/mm3 (4.8-10.8)
[2019-11-24 10:37] LABS: Alanine Aminotransferase 12 U/L (12-78); Alkaline Phosphatase 71 U/L (38-126); Anion Gap 10.6 mEq/L (5-15); Aspartate Amino Transferase 27 U/L (17-59); Bilirubin,Total 0.6 mg/dl (0.2-1.3); Blood Urea Nitrogen 15 mg/dl (9-20); Calcium 9.5 mg/dl (8.4-10.2); Carbon Dioxide 31 mmol/L (22.0-30.0); Chloride 94 mmol/L (98-107); Estimated Glomerular Filt Rate 82 ml/min (>60); GFR (African American) 99 ML/MIN (>60); Globulin 2.9 g/dL (1.3-3.2); Glucose 126 mg/dl (74-100); Potassium 3.6 mmoL/L (3.5-5.1); Sodium 132 mmol/L (136-145); Total Protein,Serum 6.9 g/dl (6.3-8.2)
[2019-11-24 11:08] LABS: Thyroid Stimulating Hormone 1.51 uIU/mL (0.465-4.68)
[2019-11-24 11:58] LABS: Albumin/Globulin Ratio 1.4 (1.1-1.8)
== END ==
PROVIDERS: Visit Provider Internal Medicine Medical Oncology
DX: C34.91 Malignant neoplasm of unspecified part of right bronchus or lung (principal); Z79.899 Other long term (current) drug therapy
CPT/HCPCS: 36415; 80053; 82533; 84443; 85025

== ENCOUNTER 2019-11-27 10:07 | Outpatient (CLI) | payer MEDICARE, OTHER, SELFPAY ==
[2019-11-27 10:35] VITALS: BP 134/77; PULSE 62; RESP 18; TEMP 36.4
[2019-11-27 10:50] VITALS: BP 122/77; PULSE 62; RESP 18
[2019-11-27 11:20] VITALS: BP 122/82; PULSE 63; RESP 18; TEMP 36.4
== END 2019-11-27 11:20 | disposition home or self-care (01) ==
LOC: INF 10:07
PROVIDERS: Visit Provider Internal Medicine Medical Oncology
DX: Z51.11 Encounter for antineoplastic chemotherapy (principal); C34.91 Malignant neoplasm of unspecified part of right bronchus or lung
CPT/HCPCS: 96413; J9271

== ENCOUNTER → 2019-12-15 07:02 | Outpatient (CLI) | payer MEDICARE, OTHER, SELFPAY ==
[2019-12-15 07:44] LABS: Basophils % 0.4 % (0.1-2.0); Eosinophils # 0.7 K/mm3 (0.0-0.4); Eosinophils % 9.2 % (0.1-12.0); Hematocrit 44.4 % (42.0-52.0); Hemoglobin 14.8 g/dL (14.1-18.0); Lymphocytes # 0.9 K/mm3 (0.7-4.5); Lymphocytes % 12.9 % (10-50); Mean Corpuscular HGB Conc 33.3 g/dL (31.8-35.4); Mean Corpuscular Hemoglobin 29.3 pg (27.0-31.2); Mean Platelet Volume 7.3 fl (7.4-10.4); Monocytes # 0.7 K/mm3 (0.1-1.0); Monocytes % 9.4 % (1.7-9.3); Neutrophils # 4.8 K/mm3 (1.8-7.8); Neutrophils % 68.1 % (37.0-80.0); Platelet Count 346 K/mm3 (142-424); Red Blood Count 5.04 M/mm3 (4.60-6.20); Red Cell Distribution Width 13.5 % (11.5-17.5); White Blood Count 7.1 K/mm3 (4.8-10.8)
[2019-12-15 09:40] LABS: Alanine Aminotransferase 12 U/L (12-78); Albumin Level 4.2 g/dl (3.5-5.0); Albumin/Globulin Ratio 1.4 (1.1-1.8); Alkaline Phosphatase 67 U/L (38-126); Anion Gap 15.4 mEq/L (5-15); Aspartate Amino Transferase 35 U/L (17-59); Bilirubin,Total 0.8 mg/dl (0.2-1.3); Blood Urea Nitrogen 13 mg/dl (9-20); Calcium 9.8 mg/dl (8.4-10.2); Carbon Dioxide 31 mmol/L (22.0-30.0); Chloride 94 mmol/L (98-107); Estimated Glomerular Filt Rate 82 ml/min (>60); GFR (African American) 99 ML/MIN (>60); Globulin 2.9 g/dL (1.3-3.2); Glucose 91 mg/dl (74-100); Potassium 3.4 mmoL/L (3.5-5.1); Sodium 137 mmol/L (136-145); Total Protein,Serum 7.1 g/dl (6.3-8.2)
[2019-12-15 10:11] LABS: Thyroid Stimulating Hormone 3.05 uIU/mL (0.465-4.68)
== END ==
PROVIDERS: Visit Provider Internal Medicine Medical Oncology
DX: C34.91 Malignant neoplasm of unspecified part of right bronchus or lung (principal); Z79.899 Other long term (current) drug therapy
CPT/HCPCS: 36415; 80053; 82533; 84443; 85025

== ENCOUNTER 2019-12-17 09:55 | Outpatient (CLI) | payer MEDICARE, OTHER, SELFPAY ==
[2019-12-17 10:35] VITALS: BP 135/73; PULSE 65; RESP 18; TEMP 36.2; O2SAT 99
[2019-12-17 10:50] VITALS: BP 144/93; PULSE 62; RESP 18
[2019-12-17 11:07] VITALS: BP 155/92; PULSE 67; RESP 18
[2019-12-17 11:22] VITALS: BP 160/93; PULSE 65; RESP 20
== END 2019-12-17 11:22 | disposition home or self-care (01) ==
LOC: INF 09:55
PROVIDERS: Visit Provider Internal Medicine Medical Oncology
DX: Z51.11 Encounter for antineoplastic chemotherapy (principal); C34.91 Malignant neoplasm of unspecified part of right bronchus or lung
CPT/HCPCS: 96413; J9271

== ENCOUNTER → 2020-01-04 10:27 | Outpatient (CLI) | payer MEDICARE, OTHER, SELFPAY ==
[2020-01-04 11:24] LABS: Basophils % 0.3 % (0.1-2.0); Eosinophils # 0.9 K/mm3 (0.0-0.4); Eosinophils % 11.3 % (0.1-12.0); Lymphocytes # 0.8 K/mm3 (0.7-4.5); Mean Corpuscular Hemoglobin 28.6 pg (27.0-31.2); Mean Corpuscular Volume 89.4 fl (80-94); Mean Platelet Volume 7.1 fl (7.4-10.4); Monocytes # 0.7 K/mm3 (0.1-1.0); Neutrophils # 5.5 K/mm3 (1.8-7.8); Neutrophils % 69.4 % (37.0-80.0); Platelet Count 372 K/mm3 (142-424); Red Blood Count 5.26 M/mm3 (4.60-6.20); White Blood Count 7.8 K/mm3 (4.8-10.8)
[2020-01-04 13:02] LABS: Alanine Aminotransferase 14 U/L (12-78); Albumin Level 4.2 g/dl (3.5-5.0); Albumin/Globulin Ratio 1.4 (1.1-1.8); Alkaline Phosphatase 68 U/L (38-126); Anion Gap 11.8 mEq/L (5-15); Aspartate Amino Transferase 34 U/L (17-59); Bilirubin,Total 0.5 mg/dl (0.2-1.3); Blood Urea Nitrogen 13 mg/dl (9-20); Calcium 9.7 mg/dl (8.4-10.2); Carbon Dioxide 31 mmol/L (22.0-30.0); Chloride 94 mmol/L (98-107); Estimated Glomerular Filt Rate 82 ml/min (>60); GFR (African American) 99 ML/MIN (>60); Glucose 96 mg/dl (74-100); Potassium 3.8 mmoL/L (3.5-5.1); Sodium 133 mmol/L (136-145); Total Protein,Serum 7.2 g/dl (6.3-8.2)
[2020-01-04 13:30] LABS: Thyroid Stimulating Hormone 0.88 uIU/mL (0.465-4.68)
== END ==
PROVIDERS: Visit Provider Internal Medicine Medical Oncology
DX: C34.91 Malignant neoplasm of unspecified part of right bronchus or lung (principal); Z79.899 Other long term (current) drug therapy
CPT/HCPCS: 36415; 80053; 82533; 84443; 85025

== ENCOUNTER 2020-01-07 09:10 | Outpatient (CLI) | payer MEDICARE, OTHER, SELFPAY ==
[2020-01-07 10:05] VITALS: BP 154/78; PULSE 69; RESP 18; TEMP 36.4; O2SAT 97
[2020-01-07 10:20] VITALS: BP 131/86; PULSE 66; RESP 18
[2020-01-07 10:52] VITALS: BP 141/90; PULSE 66; RESP 18; O2SAT 97
== END 2020-01-07 10:52 | disposition home or self-care (01) ==
LOC: INF 09:10
PROVIDERS: Visit Provider Internal Medicine Medical Oncology
DX: Z51.11 Encounter for antineoplastic chemotherapy (principal); C34.91 Malignant neoplasm of unspecified part of right bronchus or lung
CPT/HCPCS: 96413; J9271

== ENCOUNTER → 2020-02-15 07:39 | Outpatient (CLI) | payer MEDICARE, OTHER, SELFPAY ==
[2020-02-15 08:35] LABS: Basophils # 0.1 K/mm3 (0-0.2); Basophils % 0.9 % (0.1-2.0); Hematocrit 43.3 % (42.0-52.0); Hemoglobin 14.5 g/dL (14.1-18.0); Lymphocytes # 0.8 K/mm3 (0.7-4.5); Lymphocytes % 9.5 % (10-50); Mean Corpuscular HGB Conc 33.5 g/dL (31.8-35.4); Mean Corpuscular Hemoglobin 28.8 pg (27.0-31.2); Mean Corpuscular Volume 86.2 fl (80-94); Mean Platelet Volume 6.9 fl (7.4-10.4); Monocytes # 0.7 K/mm3 (0.1-1.0); Monocytes % 8.7 % (1.7-9.3); Neutrophils # 5.5 K/mm3 (1.8-7.8); Neutrophils % 68.8 % (37.0-80.0); Platelet Count 412 K/mm3 (142-424); Red Blood Count 5.03 M/mm3 (4.60-6.20); White Blood Count 7.9 K/mm3 (4.8-10.8)
[2020-02-15 09:05] LABS: Chloride 92 mmol/L (98-107); Potassium 3.7 mmoL/L (3.5-5.1); Sodium 131 mmol/L (136-145)
[2020-02-15 09:08] LABS: Alanine Aminotransferase 15 U/L (12-78); Albumin Level 4.2 g/dl (3.5-5.0); Albumin/Globulin Ratio 1.4 (1.1-1.8); Alkaline Phosphatase 68 U/L (38-126); Anion Gap 9.7 mEq/L (5-15); Aspartate Amino Transferase 34 U/L (17-59); Bilirubin,Total 0.7 mg/dl (0.2-1.3); Blood Urea Nitrogen 13 mg/dl (9-20); Calcium 9.6 mg/dl (8.4-10.2); Carbon Dioxide 33 mmol/L (22.0-30.0); Estimated Glomerular Filt Rate 82 ml/min (>60); GFR (African American) 99 ML/MIN (>60); Globulin 3.1 g/dL (1.3-3.2); Glucose 103 mg/dl (74-100); Total Protein,Serum 7.3 g/dl (6.3-8.2)
[2020-02-15 09:36] LABS: Thyroid Stimulating Hormone 0.85 uIU/mL (0.465-4.68)
== END ==
PROVIDERS: Visit Provider Internal Medicine Medical Oncology
DX: C34.91 Malignant neoplasm of unspecified part of right bronchus or lung (principal); Z79.899 Other long term (current) drug therapy
CPT/HCPCS: 36415; 80053; 82533; 84443; 85025

== ENCOUNTER 2020-02-18 08:54 | Outpatient (CLI) | payer MEDICARE, OTHER, SELFPAY ==
[2020-02-18 08:57] VITALS: BMI 27.1
[2020-02-18 10:45] VITALS: BP 125/76; PULSE 66; RESP 18; O2SAT 96
[2020-02-18 11:00] VITALS: BP 121/70; PULSE 64; RESP 18
[2020-02-18 11:15] VITALS: BP 121/75; PULSE 63; RESP 18
[2020-02-18 11:29] VITALS: BP 115/71; PULSE 69; RESP 18
== END 2020-02-18 11:29 | disposition home or self-care (01) ==
LOC: INF 08:56
PROVIDERS: Visit Provider Internal Medicine Medical Oncology
DX: Z51.11 Encounter for antineoplastic chemotherapy (principal); C34.91 Malignant neoplasm of unspecified part of right bronchus or lung
CPT/HCPCS: 96413; J9271

== ENCOUNTER → 2020-03-07 07:23 | Outpatient (CLI) | payer MEDICARE, OTHER, SELFPAY ==
[2020-03-07 08:01] LABS: Basophils # 0.2 K/mm3 (0-0.2); Basophils % 1.9 % (0.1-2.0); Eosinophils # 0.9 K/mm3 (0.0-0.4); Eosinophils % 11.3 % (0.1-12.0); Hemoglobin 15.3 g/dL (14.1-18.0); Lymphocytes # 0.8 K/mm3 (0.7-4.5); Lymphocytes % 9.9 % (10-50); Mean Corpuscular HGB Conc 34.7 g/dL (31.8-35.4); Mean Corpuscular Hemoglobin 30.8 pg (27.0-31.2); Mean Corpuscular Volume 88.6 fl (80-94); Mean Platelet Volume 7.2 fl (7.4-10.4); Monocytes # 0.6 K/mm3 (0.1-1.0); Monocytes % 7.9 % (1.7-9.3); Neutrophils # 5.6 K/mm3 (1.8-7.8); Neutrophils % 69.1 % (37.0-80.0); Platelet Count 389 K/mm3 (142-424); Red Blood Count 4.97 M/mm3 (4.60-6.20); Red Cell Distribution Width 13.6 % (11.5-17.5); White Blood Count 8.1 K/mm3 (4.8-10.8)
[2020-03-07 09:34] LABS: Alanine Aminotransferase 15 U/L (12-78); Albumin Level 4.4 g/dl (3.5-5.0); Albumin/Globulin Ratio 1.3 (1.1-1.8); Alkaline Phosphatase 72 U/L (38-126); Anion Gap 10.6 mEq/L (5-15); Aspartate Amino Transferase 40 U/L (17-59); Bilirubin,Total 0.7 mg/dl (0.2-1.3); Blood Urea Nitrogen 14 mg/dl (9-20); Calcium 9.8 mg/dl (8.4-10.2); Carbon Dioxide 33 mmol/L (22.0-30.0); Chloride 91 mmol/L (98-107); Estimated Glomerular Filt Rate 73 ml/min (>60); GFR (African American) 88 ML/MIN (>60); Globulin 3.3 g/dL (1.3-3.2); Glucose 95 mg/dl (74-100); Potassium 3.6 mmoL/L (3.5-5.1); Sodium 131 mmol/L (136-145); Total Protein,Serum 7.7 g/dl (6.3-8.2)
[2020-03-07 10:04] LABS: Thyroid Stimulating Hormone 0.42 uIU/mL (0.465-4.68)
== END ==
PROVIDERS: Visit Provider Internal Medicine Medical Oncology
DX: C34.91 Malignant neoplasm of unspecified part of right bronchus or lung (principal); E03.9 Hypothyroidism, unspecified
CPT/HCPCS: 36415; 80053; 84443; 85025

== ENCOUNTER → 2020-06-07 09:08 | Outpatient (POV) | payer MEDICARE, OTHER, SELFPAY | PROVIDERS: Visit Provider Dermatology | DX: Z00.00 Encounter for general adult medical examination without abnormal findings (principal) ==

== ENCOUNTER → 2020-09-19 11:57 | Outpatient (CLI) | payer MEDICARE, OTHER, SELFPAY ==
[2020-09-19 13:42] LABS: Basophils % 0.4 % (0.1-2.0); Eosinophils # 0.5 K/mm3 (0.0-0.4); Eosinophils % 6.2 % (0.1-12.0); Hematocrit 48.6 % (42.0-52.0); Hemoglobin 16.5 g/dL (14.1-18.0); Lymphocytes # 1.1 K/mm3 (0.7-4.5); Lymphocytes % 13.6 % (10-50); Mean Corpuscular Hemoglobin 30.9 pg (27.0-31.2); Mean Corpuscular Volume 90.8 fl (80-94); Mean Platelet Volume 7.6 fl (7.4-10.4); Monocytes # 0.7 K/mm3 (0.1-1.0); Monocytes % 8.6 % (1.7-9.3); Neutrophils # 5.9 K/mm3 (1.8-7.8); Neutrophils % 71.2 % (37.0-80.0); Platelet Count 436 K/mm3 (142-424); Red Blood Count 5.35 M/mm3 (4.60-6.20); Red Cell Distribution Width 13.1 % (11.5-17.5); White Blood Count 8.2 K/mm3 (4.8-10.8)
[2020-09-19 15:07] LABS: Alanine Aminotransferase 12 U/L (12-78); Albumin Level 4.7 g/dl (3.5-5.0); Albumin/Globulin Ratio 1.4 (1.1-1.8); Alkaline Phosphatase 78 U/L (38-126); Anion Gap 13.1 mEq/L (5-15); Aspartate Amino Transferase 34 U/L (17-59); Bilirubin,Total 0.8 mg/dl (0.2-1.3); Blood Urea Nitrogen 15 mg/dl (9-20); Calcium 10.2 mg/dl (8.4-10.2); Carbon Dioxide 32 mmol/L (22.0-30.0); Chloride 92 mmol/L (98-107); Chol/HDL Ratio 4.6 (1-3.5); Cholesterol 178 mg/dl (140-200); Estimated Glomerular Filt Rate 65 ml/min (>60); GFR (African American) 79 ML/MIN (>60); Globulin 3.4 g/dL (1.3-3.2); Glucose 105 mg/dl (74-100); HDL Cholesterol 39 mg/dl (40-60); Potassium 4.1 mmoL/L (3.5-5.1); Sodium 133 mmol/L (136-145); Total Protein,Serum 8.1 g/dl (6.3-8.2); Triglycerides 145 mg/dl (30-150); VLDL Cholesterol 29 mg/dL (0-40)
[2020-09-19 15:22] LABS: Direct LDL Cholesterol 94.34 mg/dL (100-129)
[2020-09-19 15:42] LABS: Thyroid Stimulating Hormone 2.98 uIU/mL (0.465-4.68)
== END ==
PROVIDERS: Visit Provider Internal Medicine Adolescent Medicine
DX: C79.51 Secondary malignant neoplasm of bone (principal); E78.5 Hyperlipidemia, unspecified; E03.9 Hypothyroidism, unspecified
CPT/HCPCS: 36415; 80053; 80061; 84443; 85025

== ENCOUNTER → 2020-10-18 16:22 | Outpatient (CLI) | payer MEDICARE, OTHER, SELFPAY ==
[2020-10-20 11:41] LABS: Covid-19 Nasal PCR Sendout P&C NEGATIVE
== END ==
PROVIDERS: PCP Internal Medicine Adolescent Medicine; Visit Provider Internal Medicine Adolescent Medicine
DX: Z11.52 Encounter for screening for COVID-19 (principal)
CPT/HCPCS: U0004

== ENCOUNTER → 2021-02-22 13:32 | Outpatient (CLI) | payer MEDICARE, OTHER, SELFPAY ==
--- NOTE | 2021-02-22 13:38 | XR_ITS ---
PROCEDURE: XR MULTIPLE SPINE 6+V CLINICAL INDICATION: SECONDARY MALIGNANT NEOPLASM OF BONE, CANCER RELATED PAIN COMPARISON: CT CT CHEST W CON from 08/03/2019 FINDINGS: Thoracic spine: No fracture or dislocation is evident. No lytic or blastic change. There are mild degenerative changes. On the lateral view the thoracic spine there is a pleural base mass noted measuring 5 cm cephalad caudad and 2.4 cm AP. This is at the T7 level on the lateral view not readily apparent on the frontal view. There is a questionable paraspinal mass on the left at T5.. Suggest chest CT with contrast more thorough evaluation. Lumbar spine: Prior kyphoplasty at L3. There is moderate wedge compression changes of L3. There is degenerative disc disease at L1-L2 and L2-L3. IMPRESSION: 1. No acute finding of the thoracic or lumbar spine. 2. Pleural base mass posteriorly at the T7 level and possible left paraspinal region at T5. Suggest chest CT with contrast for further evaluation 3. Prior kyphoplasty at L3 with wedging compression changes and degenerative change of the lumbar spine Dictated by: Riky Orona MD 02/22/2021 14:54 Riky Orona MD in [facility] 02/22/2021 14:54
== END ==
PROVIDERS: PCP Internal Medicine Adolescent Medicine; Visit Provider Internal Medicine Adolescent Medicine
DX: M54.6 Pain in thoracic spine (principal); M54.5 Low back pain; C79.51 Secondary malignant neoplasm of bone; G89.3 Neoplasm related pain (acute) (chronic)
CPT/HCPCS: 72084

== ENCOUNTER → 2021-02-23 10:56 | Outpatient (CLI) | payer MEDICARE, OTHER, SELFPAY ==
--- NOTE | 2021-02-23 11:09 | MR_ITS ---
PROCEDURE: MR THORACIC SPINE WO/W CON CLINICAL INDICATION: PAIN RADIATING DOWN LEFT LEG Abnormal plain films suggesting a pleural based mass in the paraspinal region COMPARISON: No exams were available for comparison TECHNIQUE: Routine multiplanar multi echo sequences are performed without and with gadolinium enhancement. FINDINGS: A there is normal alignment. Numerous lesions are present in the thoracic spine with areas of decreased T1 and increased STIR signal. These involve the vertebral bodies of T2, T3, T7, T8, T10, T11, and T12. The most extensive involvement is at T7, T11 and T12 with nearly complete infiltration of vertebral body at T11 and T12. The lesion at T7 measures 2.2 cm a. these lesions show some minimal enhancement. There is a small right paracentral disc protrusion at T7-T8. There is a soft tissue mass involving the right 7th rib posteriorly. The mass measures 6 cm transverse and 3.7 cm AP demonstrating some heterogeneous contrast enhancement. No obvious epidural mass is evident. There is a lesion involving the T10 pedicle on the right but is non expansive. IMPRESSION: 1. Multiple thoracic spine lesions consistent with metastatic disease as described above. No obvious epidural mass or spinal cord compression. 2. Pleural based mass involving the right 7th rib posteriorly consistent with metastatic disease. Suggest chest CT with contrast for further evaluation. 3. Small right paracentral disc protrusion at T7-T8 Dictated by: Riky Orona MD 02/23/2021 13:13 Riky Orona MD in [facility] 02/23/2021 13:13
[2021-02-23 11:24] LABS: Blood Urea Nitrogen 17 mg/dl (9-20); Estimated Glomerular Filt Rate 72 ml/min (>60); GFR (African American) 88 ML/MIN (>60)
== END ==
PROVIDERS: Visit Provider Internal Medicine Medical Oncology
DX: M79.662 Pain in left lower leg (principal)
CPT/HCPCS: 36415; 72157; 82565; 84520; A9576

== ENCOUNTER 2021-04-22 13:42 | Observation (INO) | payer MEDICARE, OTHER, SELFPAY ==
[2021-04-22 13:42] VITALS: BP 159/99; PULSE 81; RESP 18; TEMP 36.7; O2SAT 92; BMI 26.7
--- NOTE | 2021-04-22 13:52 | XR_ITS ---
PROCEDURE INFORMATION: Exam: XR Left Hip Exam date and time: 04/22/2021 1:52 PM Age: 75 years old Clinical indication: Hip pain; Left hip; Additional info: Fall to L. Hip; Pain TECHNIQUE: Imaging protocol: XR Left hip. Views: 2 or 3 views hip with pelvis when performed. COMPARISON: CT ABDOMEN PELVIS W CON 08/03/2019 11:44 AM FINDINGS: Bones/joints: There is a nondisplaced fracture of the subcapital left hip. No other fracture or dislocation is seen. Degenerative changes of lower lumbar spine and both hips are seen. Soft tissues: Unremarkable. IMPRESSION: There is a nondisplaced fracture of the subcapital left hip. No other fracture or dislocation is seen.
--- NOTE | 2021-04-22 14:02 | HMH.EDFALL ---
ED Disposition Clinical Impression: Contusion of hip region Disposition: Home, Self-Care Condition on Discharge: Fair Prescriptions: Cyclobenzaprine HCl [Cyclobenzaprine 5mg Tab] 5 mg PO Q8HP PRN #30 tab PRN Reason: pain/spasm Prescription Printed Ketorolac Tromethamine [Toradol 10mg tablet] 10 mg PO Q6H 5 Days #20 tab Prescription Printed Referrals: Almas Rust MD [Primary Care Provider] - - Critical Care Critical Care Time: No Attestation: On 04/22/21, the high probability of a clinically significant, sudden or life threatening deterioration of the following system(s) required my full and direct attention, intervention and personal management. The time I documented below is in addition to time spent performing reported procedures but includes the following listed in this critical care notation. Medical Decision Making - Medical Records Medical records reviewed: Yes: I reviewed the patient's medical records. - Vinny Inquiry Pt receiving controlled substance: No Vital Signs: 04/22/21 13:42 Temperature 98.1 F Temperature Source Oral Pulse Rate [Left] 81 Respiratory Rate 18 Blood Pressure [Right Arm] 159/99 H Blood Pressure Mean [Right Arm] 119 Blood Pressure Source [Right Arm] Automatic Cuff 02 Sat by Pulse Oximetry 92 L Oxygen Delivery Method Room Air - Lab Data Lab results reviewed: Yes: I reviewed the patient's lab results. Orders (Tests/Meds): ED MEDICATIONS Discontinued Medications Generic Name Dose Route Start Last Admin Trade Name Freq PRN Reason Stop Dose Admin Ketorolac Tromethamine 60 mg 04/22/21 13:53 04/22/21 13:55 Ketorolac 60mg/2ml Vial IM 04/22/21 13:54 Not Given ONCE ONE Ketorolac Tromethamine 30 mg 04/22/21 14:01 04/22/21 14:02 Ketorolac 30mg/Ml Vial IV 04/22/21 14:02 30 mg ONCE ONE Administration Orphenadrine Citrate 60 mg 04/22/21 13:53 04/22/21 13:54 Orphenadrine Citrate 60mg/2ml Vial IV 04/22/21 13:54 60 mg ONCE ONE Administration ORDERS Category Date Time Status Hip XR left minimum 2 views [XR hip LT 2-3V w/pelvis] Exams 04/22/21 13:52 Taken Stat Basic Metabolic Panel Stat Lab 04/22/21 14:00 Received Complete Blood Count Auto Diff Stat Lab 04/22/21 14:00 Received PT/PTT Stat Lab 04/22/21 14:00 Received - Radiology Data #1 Image(s): Hip Image Reviewed: Yes I reviewed the patient's radiology results Preliminary Findings: Normal/NAD Fall HPI - General Chief Complaint: Fall Stated Complaint: fall Time Seen by Provider: 04/22/21 13:50 Mode of Arrival: EMS Source of Information: Patient Limitations: Physical Limitations Description of Symptoms (Recalled from ER Triage Doc. by RN): PATIENT WAS OUTSIDE WORKING ON A BASKETBALL GOAL AROUND 1300 WHEN HE LOST BALANCE ON LADDER AND FELL BACKWARDS ONTO CONCRETE. PATIENTS STATES THAT HE FELL ON LEFT HIP AND LOWER BACK, BUT PROTECTED HEAD AND DID NOT HIT HEAD ON CONCRETE. NO LOC. - History of Present Illness HPI Narrative: No male who presents by EMS after sustaining fall at his home. Patient was on around 1 or 2 of a ladder while trying to change the unit at a basketball goal when the ladder started to fall patient let go of the goal and fell to his left hip. Patient reports sharp to the left hip flex which worsens if he tries to flex the hip. Patient cannot flex hip any more than a few degrees. He cannot bear weight on the hip. Patient denies any loss of consciousness or head injury as a result of the fall. - Related Data Home Medications Medication Instructions Recorded Confirmed Aspirin [Aspirin 81mg chewable 81 mg PO DAILY 08/04/18 02/23/21 tab] carvediloL [Carvedilol 25mg Tab] 25 mg PO BID 08/04/18 02/23/21 olmesartan 40 mg-amlodipine 10 1 tab PO DAILY 08/07/19 02/23/21 mg-hydrochlorothiazide 25 mg tablet gabapentin 300 mg capsule 300 mg PO cap 02/23/21 02/23/21 levothyroxine 150 mcg tablet 150 mcg PO DAILY 02/23
[2021-04-22 14:28] LABS: Chloride 96 mmol/L (98-107); Potassium 3.4 mmoL/L (3.5-5.1); Sodium 134 mmol/L (136-145)
[2021-04-22 14:31] LABS: Anion Gap 12.4 mEq/L (5-15); Blood Urea Nitrogen 13 mg/dl (9-20); Calcium 9.3 mg/dl (8.4-10.2); Carbon Dioxide 29 mmol/L (22.0-30.0); Creatinine Clearance Estimated 87 mL/min (50-200); Estimated Glomerular Filt Rate 72 ml/min (>60); GFR (African American) 88 ML/MIN (>60); Glucose 100 mg/dl (74-100)
[2021-04-22 14:39] LABS: Activated Partial Thrombo Time 23.6 seconds (22.8-30.6); INR 0.88 (0.9-1.1); Prothrombin Time 10.5 seconds (10.1-12.5)
[2021-04-22 14:55] LABS: Basophils % 0.3 % (0.1-2.0); Eosinophils # 0.2 K/mm3 (0.0-0.4); Eosinophils % 3.9 % (0.1-12.0); Hematocrit 37.8 % (42.0-52.0); Hemoglobin 13.2 g/dL (14.1-18.0); Lymphocytes # 0.7 K/mm3 (0.7-4.5); Lymphocytes % 11.8 % (10-50); Mean Corpuscular HGB Conc 34.9 g/dL (31.8-35.4); Mean Corpuscular Hemoglobin 31.1 pg (27.0-31.2); Mean Corpuscular Volume 89.1 fl (80-94); Mean Platelet Volume 7.8 fl (7.4-10.4); Monocytes # 0.7 K/mm3 (0.1-1.0); Monocytes % 11.9 % (1.7-9.3); Neutrophils # 4.2 K/mm3 (1.8-7.8); Platelet Count 346 K/mm3 (142-424); Red Blood Count 4.24 M/mm3 (4.60-6.20); Red Cell Distribution Width 15.3 % (11.5-17.5); White Blood Count 5.9 K/mm3 (4.8-10.8)
[2021-04-22 15:48] VITALS: BP 148/92; PULSE 77; RESP 16; TEMP 36.7; O2SAT 97
--- NOTE | 2021-04-22 16:00 | PC.NURSE ---
Patient was initially discharged home around [address] Mason call to ED MD about patient having a possible fracture of left hip and requested CT. Dr. Monzon asked me to call patient back and inform him that we would like to see him back in the ER for more imaging of left hip. Dr Monzon spoke to Dr. Garay and Dr. Mason about consult and admitting patient to hospital once patient returned to hospital.
--- NOTE | 2021-04-22 16:05 | PC.NURSE ---
patient returned to ED via ambulance. Patient stable/alert/oriented. MD in room explaining imaging findings and plan of care.
[2021-04-22 16:12] VITALS: BP 138/80; PULSE 73; RESP 18; TEMP 36.6; O2SAT 93
[2021-04-22 17:01] VITALS: BP 155/86; PULSE 78; RESP 18; O2SAT 97
[2021-04-22 17:25] VITALS: BMI 26.9
[2021-04-22 17:30] VITALS: BP 159/90; PULSE 81; RESP 18; O2SAT 97
[2021-04-22 17:45] LABS: Coronavirus 19, PCR Not Detected (NotDetected); Influenza A, PCR Not Detected (NotDetected); Influenza B, PCR Not Detected (NotDetected)
--- NOTE | 2021-04-22 19:28 | PC.NURSE ---
Report called to Norma at this time.
--- NOTE | 2021-04-22 19:41 | PC.NURSE ---
PT ARRIVED TO FLOOR VIA STRETCHER FROM ED AT 194
--- NOTE | 2021-04-22 19:46 | CT_ITS ---
PROCEDURE INFORMATION: Exam: CT Left Lower Extremity Without Contrast, Hip Exam date and time: 04/22/2021 7:46 PM Age: 75 years old Clinical indication: Pain; Hip; Left; Additional info: Lt hip FX TECHNIQUE: Imaging protocol: CT of the Left lower extremity without contrast was performed. Exam focused on the hip. 3D rendering (Not supervised by radiologist): MIP and/or 3D reconstructed images were created by the technologist. Radiation optimization: All CT scans at this facility use at least one of these dose optimization techniques: automated exposure control; mA and/or kV adjustment per patient size (includes targeted exams where dose is matched to clinical indication); or iterative reconstruction. COMPARISON: CR XR HIP LT 2-3V W/PELVIS 04/22/2021 2:09 PM FINDINGS: Bones/joints: Mildly angulated fracture at the left femoral neck is demonstrated. The hip is in varus deformity. No other fracture or dislocation is seen. Soft tissues: No significant joint effusion or soft tissue swelling is seen. Vasculature: Vascular calcifications are demonstrated. IMPRESSION: Mildly angulated fracture at the left femoral neck is demonstrated. The hip is in varus deformity. No other fracture or dislocation is seen.
[2021-04-22 20:27] VITALS: BP 157/94; PULSE 94; RESP 18; TEMP 36.6; O2SAT 94
--- NOTE | 2021-04-22 21:30 | HMH.ORTHOCON ---
*Admission Date: 04/22/21 *Reason for consult:: Displaced fracture neck of femur, left hip *History of present illness: Mr. Jefferson is a pleasant 75-year-old male, admitted to hospital this afternoon for management of left hip fracture. Patient's is with him in the room at the time of consult. He says he fell outside his home while working on a ladder earlier this afternoon, trying to fix the basketball hoop. He says he was on the second rung of the ladder and lost balance falling backwards onto the concrete. He says he injured his left hip and had immediate pain. He says he could not get up or walk after the fall. Patient was brought to the ER and had hip x-rays. Initially, he was thought to have hip contusion and sent home. But he was subsequently brought back to the ER and admitted to the hospital for further management. He says he has minimal discomfort at rest and the LEFT hip pain is worse with movements of the leg. He denies any other injuries including head injury, neck injury, back injury, chest or abdominal injury or upper extremity injury. No history of any dizziness, headache, chest or neck pain. No distal numbness or tingling. He has history of lung cancer treated with surgery and radiotherapy many years ago. He also reports that he was diagnosed with vertebral bone mets and recently completed radiotherapy. No history of any hip metastatic lesions. He reports no hip pain or hip problems prior to the fall. He has history of hypertension and hypothyroidism. He says he had atrial fibrillation in the past but is due to have it after ablation. He lives with his and usually walks independently without any walking aids. He says there are 4 steps to get into his house but the house is single level. Not a known diabetic. He is a non-smoker. [facility] History I have reviewed the patient's past medical history: Yes Medical History: Reports:: Atrial Fibrillation, Cancer, Hypertension, Palpitations Denies:: Diabetes Mellitus Type 1, Diabetes Mellitus Type 2, Internal Pacemaker, MRSA, Seizures *Have you ever received a pneumonia vaccine?: Yes *Have you received a flu vaccine this season?: Yes Other Medical History: Reports: Cataracts, Chemotherapy, Radiation Therapy, Thyroid Disease. Denies: Blood Transfusion Reaction Laterality Cases: Bilateral: Tonsillectomy Other Surgeries: Yes: Cancer Surgery, Cholecystectomy, Colonoscopy, Hernia Repair, Sinus Surgery. No: Pacemaker Amputation: No Fractures: Yes (L3 compression fracture-current) - *Social History Smoking Status: Former smoker Tobacco Type: cigarettes # Packs/Day (cigarettes): 0 #Yrs smoked (if former smoker): 20 Alcohol Intake: never Alcohol Intake Frequency:: other Substance Use Type: denies use *Occupational Status:: retired Housing: house Household Members: spouse *Travel in the last 8 weeks: None Family Hx:: No significant family history Review of Systems - Review of Systems Review of systems:: pertinent systems reviewed and negative unless documented below - Constitutional Denies chills, Denies fever(s), Denies malaise - Eyes Denies change in vision - ENT Denies abnormal hearing - *Cardiovascular Denies chest pain, Denies shortness of breath - *Respiratory Denies chest congestion, Denies cough - *Gastrointestinal Denies abdominal pain, Denies change in bowel habits - *Genitourinary Denies difficulty urinating - *Musculoskeletal Reports abnormal walking, Reports joint pain, Reports deformity, Reports limited joint movement - *Neurologic Reports abnormal walking, Denies seizure-like activity, Denies dizziness, Denies tingling/numbness/burning sensations - Endocrine Denies cold intolerance, Denies heat intolerance - Hematologic/Lymphatic Denies easy bleeding, Denies easy bruising Meds Home Medications Medication Instructions Recorded Confirmed Type Aspirin [Aspirin 81mg chewable 81 mg PO DAILY 08/04/18 04/22/21 History tab
[2021-04-23] VITALS (18 sets, daily range): BP systolic 95–163; BP diastolic 59–93; PULSE 75–110; RESP 14–20; TEMP 36.4–37.4; O2SAT 90–98; BMI 26.9
--- NOTE | 2021-04-23 03:19 | PC.NURSE ---
A&O x4. PT has c/o persistant pain in L hip, norco and morphine given per dec. Lungs CTA, on room air. Bowel sounds x4, abd soft and nontender. PT NPO since midnight, consent signed. IV patent. VSS, call light in reach, no concerns at this time.
--- NOTE | 2021-04-23 06:00 | XR_ITS ---
PROCEDURE INFORMATION: Exam: XR Chest Exam date and time: 04/23/2021 6:00 AM Age: 75 years old Clinical indication: Pre-operative exam; Respiratory screening exam; Prior surgery; Surgery date: 6+ months; Additional info: Pre-op TECHNIQUE: Imaging protocol: XR of the chest. Views: 1 view. COMPARISON: CT CHEST W CON 08/03/2019 11:44 AM FINDINGS: Tubes, catheters and devices: There are sternal wires consistent with previous sternotomy incision. Lungs: Unremarkable. No consolidation. Pleural spaces: Unremarkable. No pleural effusion. No pneumothorax. Heart/Mediastinum: Unremarkable. No cardiomegaly. Bones/joints: Unremarkable. Other findings: 5 cm right hilar density which appears to be a mass. Suggest further evaluation with CT. IMPRESSION: 5 cm right hilar density which appears to be a mass. Suggest further evaluation with CT.
[2021-04-23 07:16] LABS: Anion Gap 13.9 mEq/L (5-15); Blood Urea Nitrogen 17 mg/dl (9-20); Carbon Dioxide 30 mmol/L (22.0-30.0); Chloride 92 mmol/L (98-107); Creatinine Clearance Estimated 80 mL/min (50-200); Estimated Glomerular Filt Rate 65 ml/min (>60); GFR (African American) 79 ML/MIN (>60); Glucose 113 mg/dl (74-100); Potassium 3.9 mmoL/L (3.5-5.1); Sodium 132 mmol/L (136-145)
[2021-04-23 07:19] LABS: Basophils % 0.1 % (0.1-2.0); Eosinophils # 0.3 K/mm3 (0.0-0.4); Eosinophils % 2.4 % (0.1-12.0); Hematocrit 39.5 % (42.0-52.0); Hemoglobin 13.7 g/dL (14.1-18.0); Lymphocytes # 0.6 K/mm3 (0.7-4.5); Lymphocytes % 5.1 % (10-50); Mean Corpuscular HGB Conc 34.7 g/dL (31.8-35.4); Mean Corpuscular Hemoglobin 31.1 pg (27.0-31.2); Mean Corpuscular Volume 89.7 fl (80-94); Mean Platelet Volume 7.7 fl (7.4-10.4); Monocytes # 0.8 K/mm3 (0.1-1.0); Monocytes % 6.6 % (1.7-9.3); Neutrophils # 10.4 K/mm3 (1.8-7.8); Neutrophils % 85.7 % (37.0-80.0); Platelet Count 334 K/mm3 (142-424); Red Blood Count 4.41 M/mm3 (4.60-6.20); Red Cell Distribution Width 15.4 % (11.5-17.5); White Blood Count 12.1 K/mm3 (4.8-10.8)
[2021-04-23 07:23] LABS: MANUAL DIFFERENTIAL MANUAL DIFFERENTIAL (MANUAL DIFF)
--- NOTE | 2021-04-23 07:40 | HMH.ANESCL ---
[facility] Anesthesia Checklist - Patient Identification Patient Identification: Arm Band - Structural Data Admitted From: Inpatient Planned Operative Procedure/s: Left Hip Hemiarthroplasty Consent for Planned Operative Procedure(s) Verified: Yes Verified Documents: Surgical Consent, History and Physical - NPO Status Verified Time NPO: 00:00 - Additional verifications Anesthesia Reactions: No Hx Blood Transfusions: No Blood Transfusion Reaction: No - Airway Assessment C-Spine Mobility Assessed: Yes (mp2) TMJ Mobility Assessed: Yes Dentition: Good Dentition - Neurological Assessment Level of Consciousness: Awake, Alert - Anesthesia Plan Anesthesia Risk discussed: Yes Anesthesia Plan: Verified ASA Class: III Anesthesia Type: MAC w/Spinal [facility] History I have reviewed the patient's past medical history: Yes Medical History: Reports:: Atrial Fibrillation, Cancer, Hypertension, Palpitations Denies:: Diabetes Mellitus Type 1, Diabetes Mellitus Type 2, Internal Pacemaker, MRSA, Seizures *Have you ever received a pneumonia vaccine?: Yes *Have you received a flu vaccine this season?: Yes Other Medical History: Reports: Cataracts, Chemotherapy, Radiation Therapy, Thyroid Disease. Denies: Blood Transfusion Reaction Anesthesia experience/problems:: nac Laterality Cases: Bilateral: Tonsillectomy Other Surgeries: Yes: Cancer Surgery, Cholecystectomy, Colonoscopy, Hernia Repair, Sinus Surgery. No: Pacemaker Amputation: No Fractures: Yes (L3 compression fracture-current) - *Social History Smoking Status: Former smoker Tobacco Type: cigarettes # Packs/Day (cigarettes): 0 #Yrs smoked (if former smoker): 20 Alcohol Intake: never Alcohol Intake Frequency:: other Substance Use Type: denies use *Occupational Status:: retired Housing: house Household Members: spouse *Travel in the last 8 weeks: None Family Hx:: No significant family history
--- NOTE | 2021-04-23 07:51 | PC.NURSE ---
Pt down for surgery with Oumar Alvarez @ 1815.
--- NOTE | 2021-04-23 07:53 | HMH.HP ---
*Admission Date: 04/22/21 *Chief complaint: Left hip pain *History of present illness: 75-year-old male fell from the second rung of a ladder yesterday while changing the net on a basketball goal landing on his left hip and sustaining a surgical neck fracture of the left hip. Patient was admitted for hip repair and is planned for left hemiarthroplasty this a.m. Past medical history significant for atrial fibrillation status post ablation procedure. Patient takes carvedilol. He denies chest pain, shortness of breath, palpitations. [facility] History I have reviewed the patient's past medical history: Yes Medical History: Reports:: Atrial Fibrillation, Cancer, Hypertension Denies:: Diabetes Mellitus Type 1, Diabetes Mellitus Type 2, Internal Pacemaker, MRSA, Seizures *Have you ever received a pneumonia vaccine?: Yes *Have you received a flu vaccine this season?: Yes Other Medical History: Reports: Cataracts, Chemotherapy, Radiation Therapy, Thyroid Disease. Denies: Blood Transfusion Reaction Anesthesia experience/problems:: nac Laterality Cases: Bilateral: Tonsillectomy Other Surgeries: Yes: Cancer Surgery, Cholecystectomy, Colonoscopy, Hernia Repair, Sinus Surgery. No: Pacemaker Amputation: No Fractures: Yes (L3 compression fracture-current) - *Social History Smoking Status: Former smoker Tobacco Type: cigarettes # Packs/Day (cigarettes): 0 #Yrs smoked (if former smoker): 20 Alcohol Intake: never Alcohol Intake Frequency:: other Substance Use Type: denies use *Occupational Status:: retired Housing: house Household Members: spouse *Travel in the last 8 weeks: None Family Hx:: No significant family history Review of Systems - Constitutional Denies anorexia, Denies body ache(s) - Eyes Denies blind spots, Denies blurry vision - ENT Denies dizziness - *Cardiovascular Denies chest pain, Denies chest pain at rest, Denies chest pain with activity, Denies excessive sweating, Denies shortness of breath - *Respiratory Denies change in phlegm color, Denies chest congestion, Denies cough - *Gastrointestinal Denies abdominal pain - *Genitourinary Denies difficulty urinating - *Musculoskeletal Reports joint pain - Integumentary/Breasts Denies hair loss - *Neurologic Reports abnormal walking, Denies abnormal hearing, Denies seizure-like activity, Denies dizziness, Denies tingling/numbness/burning sensations Meds Home Medications Medication Instructions Recorded Confirmed Type Aspirin [Aspirin 81mg chewable 81 mg PO DAILY 08/04/18 04/22/21 History tab] carvediloL [Carvedilol 25mg Tab] 25 mg PO BID 08/04/18 04/22/21 History olmesartan 40 mg-amlodipine 10 1 tab PO DAILY 08/07/19 04/22/21 History mg-hydrochlorothiazide 25 mg tablet gabapentin 300 mg capsule 300 mg PO TID cap 02/23/21 04/22/21 History levothyroxine 150 mcg tablet 150 mcg PO DAILY 02/23/21 04/22/21 History Allergies Allergy/AdvReac Type Severity Reaction Status Date / Time Sulfa (Sulfonamide Allergy Verified 02/23/21 13:06 Antibiotics) Exam Vital signs and Labs for Last 24 Hours: Temp Pulse Resp BP Pulse Ox 98.2 F 95 H 20 147/81 H 95 04/23/21 04:00 04/23/21 04:00 04/23/21 04:00 04/23/21 04:00 04/23/21 04:00 Laboratory Results - last 24 hr 04/22/21 14:00: WBC 5.9, RBC 4.24 L, Hgb 13.2 L, Hct 37.8 L, MCV 89.1, MCH 31.1, MCHC 34.9, RDW 15.3, Plt Count 346, MPV 7.8, Neut % (Auto) 72.0, Lymph % (Auto) 11.8, [place] % (Auto) 11.9 H, Eos % (Auto) 3.9, Baso % (Auto) 0.3, Neut # (Auto) 4.2, Lymph # (Auto) 0.7, [place] # (Auto) 0.7, Eos # (Auto) 0.2, Baso # (Auto) 0.0 04/22/21 14:00: Sodium 134 L, Potassium 3.4 L, Chloride 96 L, Carbon Dioxide 29, Anion Gap 12.4, BUN 13, Creatinine 1.00, Estimated Creat Clear 87, Estimated GFR 72, Est GFR ( Amer) 88, Glucose 100, Calcium 9.3 04/22/21 14:00: PT 10.5, INR 0.88 L, APTT 23.6 04/22/21 17:20: SARS-CoV-2 (PCR) Not detected, Influenza A Untype (PCR) Not detected, Influenza Type
--- NOTE | 2021-04-23 08:05 | P.CONPHA_ITS ---
[facility] Pharmacy VTE Monitoring - Patient Demographics Admission date: 04/22/21 Report Date: 04/23/21 Time: 08:05 Allergies/Adverse Reactions: Patient Allergies Sulfa (Sulfonamide Antibiotics) Allergy (Verified 02/23/21 13:06) Height: 1.93 m Weight: 100.386 kg Patient Problems: Current Active Problems History of atrial fibrillation (Acute) Hip fracture, left (Acute) Contusion of hip region (Acute) - VTE Risk Labs: VTE Related Lab Results Hgb 13.7 g/dL (14.1-18.0) L 04/23/21 06:22 Hct 39.5 % (42.0-52.0) L 04/23/21 06:22 Plt Count 334 K/mm3 (142-424) 04/23/21 06:22 PT 10.5 seconds (10.1-12.5) 04/22/21 14:00 INR 0.88 (0.9-1.1) L 04/22/21 14:00 APTT 23.6 seconds (22.8-30.6) 04/22/21 14:00 BUN 17 mg/dl (9-20) D 04/23/21 06:22 Creatinine 1.10 mg/dl (0.66-1.25) 04/23/21 06:22 Estimated Creat Clear 80 mL/min (50-200) 04/23/21 06:22 - Prophylaxis VTE Prophylaxis Ordered?: Yes Types of VTE Prophylaxis: TEDS Knee High Location of Applied Device: Right Leg
[2021-04-23 08:33] LABS: Eosinophils % 2 % (0-3); Lymphocytes % 1 % (10-50); Monocytes % 9 % (2-9); Neutrophils % 88 % (42-76); Total Cells Counted 100
[2021-04-23 08:34] LABS: Hypochromasia 1+; Platelet Estimate Normal
--- NOTE | 2021-04-23 10:17 | PC.NURSE ---
Pt remains off floor at this time in surgery. Did notify Dr. Rust of call from Dr. Rodrigues of radiology reading of R hilar reading and recommendation for CT. NNO given at this time, MD aware prior to cxr.
--- NOTE | 2021-04-23 11:39 | HMH.ANESI ---
[facility] Anesthesia Record Part I Intake, IV Amount: 1,600 Estimated blood loss (mL): 200 Urine output (mL): 300 Blood Pressure: 95/59 SaO2: 98 Pulse Rate: 75 Respiratory Rate: 16 Temperature: 99.4 F Patient is:: Drowsy, Stable Stable to PACU at:: 11:35
--- NOTE | 2021-04-23 11:47 | PC.NURSE ---
Pt continues to be of floor at this time in surgery.
--- NOTE | 2021-04-23 11:57 | XR_ITS ---
PROCEDURE INFORMATION: Exam: XR Left Hip Exam date and time: 04/23/2021 11:57 AM Age: 75 years old Clinical indication: Hip pain; Left hip; Prior surgery; Surgery date: Post-operative (0-2 days); Surgery type: Min ( today ); Additional info: Post op surgery TECHNIQUE: Imaging protocol: XR Left hip. Views: 2 or 3 views hip with pelvis when performed. COMPARISON: CT HIP LT WO CON 04/22/2021 7:57 PM FINDINGS: Bones/joints: There has been total left hip arthroplasty. The alignment is anatomic. No evidence of acute fracture. Soft tissues: Unremarkable. IMPRESSION: There has been total left hip arthroplasty. The alignment is anatomic. No evidence of acute fracture.
[2021-04-23 12:29] LABS: Microscopic, Urine URINE MICROSCOPIC (MICROSCOPIC)
--- NOTE | 2021-04-23 12:29 | SUR.OPER ---
pt w/bandaid to left elbow r/t fall.
--- NOTE | 2021-04-23 12:30 | SUR.PHASEI ---
1200-xray @ bs. 3 views of left hip taken. 1205-pt transported via bed per Antonina MURILLO & Matthew COLLECTIVE BARGAINING SPECIALIST to 2nd floor. Pt left in care of Layo MURILLO. Pt stable.
[2021-04-23 12:37] LABS: Appearance,Urine CLEAR (Clear); Bilirubin,Urine Negative (Negative); Blood, Urine Negative (Negative); Color,Urine YELLOW (Yellow); Glucose,Urine (UA) Negative (Negative); Ketones,Urine Negative (Negative); Leukocyte Esterase,Urine Negative (Negative); Nitrate,Urine Negative (Negative); PH,Urine 7.5 (5.0-8.5); Protein,Urine Negative (Negative); Urobilinogen,Urine 0.2 EU/dl (0.2)
--- NOTE | 2021-04-23 12:37 | HMH.OPNOTE ---
Date of procedure: 04/23/21 Pre-op Diagnosis:: Closed, displaced intracapsular fracture neck of femur, left hip Post-op Diagnosis:: Same Procedure performed:: Uncemented bipolar hemiarthroplasty, left hip Surgeon:: Leonid Mason MD Cuff Cutter(s):: Kirsten Vargas FORMULA WEIGHER:: Zack Alvarez Anesthesia: spinal Estimated blood loss (mL): 200 Clinical Note:: Patient is a 75-year-old male who sustained a displaced intracapsular fracture neck of left femur following a mechanical fall. A hemiarthroplasty is indicated to relieve pain and restore function. The operation is clinically indicated and is the standard of care for this type of fracture. Please refer to my consult note for full details. Operative findings:: Displaced sub-capital femoral neck fracture of the left hip as noted on the preoperative hip imaging. The articular cartilage of the acetabulum is well preserved without evidence of any arthritic changes. The proximal femur bone quality is good. Bone from the femoral head and neck was sent for histopathological examination as patient has history of metastatic lung cancer. Operative note:: On the day of the procedure the patient and his were met in the preoperative area and patient positively identified. The operating side and site were marked and initialed by me. I reviewed the diagnosis, natural history and management options in detail including both the nonsurgical and surgical. Given the nature of the fracture, I have recommended surgery in the form of a hemiarthroplasty of the left hip. I have discussed the procedure, risks and benefits, alternatives, potential complications and expected outcomes with patient and his . The complications discussed include but are not limited to infection, injury to nerves and blood vessels, DVT and PE, femur fracture, limb length inequality, dislocation, implant failure, loosening, acetabular wear, osteolysis, periprosthetic femur fracture, heterotopic ossification, abductor weakness and a limp, incomplete relief of pain, incomplete return of function or motion, likely need for further surgery in future including revision, anesthetic/medical complications including heart attack, stroke, transfusion reactions and even . We discussed how any of these events can be devastating. We have discussed nonsurgical alternatives as well. We also discussed the postoperative course including the rehab and physical therapy required. Patient understood the risks, agreed to proceed with surgery, signed the consent form and no guarantees or assurances were given or implied. The patient was brought to the operating room and a spinal anesthesia was administered by the gre instructor. The patient was then transferred onto the operating table and positioned in the right lateral decubitus position with the left hip facing upwards. All the bony prominences were well-padded. The left lower extremity was then prepped and draped in the usual sterile fashion. The entire operative team used isolation suits and room traffic was controlled. The surgical landmarks and incision was marked over the skin with a marking pen. [place]an sterile drape was used to cover the operative site and isolate the perineum completely from the operative field. Administration of prophylactic IV antibiotics (Ancef and vancomycin) was confirmed with the gre instructor. A preprocedure timeout was performed as per hospital protocol. A posterior approach was used to the hip joint. An electrocautery was used for hemostasis. The skin incision was made centering over the posterior border of the greater trochanter extending posteriorly in a curvilinear fashion across the buttock. The dissection was carried through subcutaneous tissue down to the fascia richy. The fascia richy and gluteus fascia were split and a Charnley retractor was placed. The trochanteric bursa was then removed with blunt dissection. The sciatic nerve was identified and kept out of the harm's way throughout the rest o
[2021-04-23 12:54] LABS: RBC,Urine Occasional #/hpf (0-3); Squamous Epithelial Cell,Urine Occasional #/hpf (0-5)
--- NOTE | 2021-04-23 16:04 | PC.NURSE ---
Addendum entered by BINH Lanza 04/23/21 16:06: No answer, left voicemail. Original Note: Called online marketing specialist therapy about eval on this pt.
--- NOTE | 2021-04-23 19:33 | PC.NURSE ---
Received order for prn IV phenegran from Dr. Rust. Pt was given meds per dec r/t nausea and emesis x 2. Zofran wasn't effective at the time. VSS. Emery in place and resting at this time. States the feeling is coming back in toes and legs. Abductor pillow in place and at bedside.
[2021-04-24] VITALS (9 sets, daily range): BP systolic 91–137; BP diastolic 54–74; PULSE 75–101; RESP 18–26; TEMP 36.6–37.3; O2SAT 86–98; BMI 28.1
--- NOTE | 2021-04-24 03:06 | PC.NURSE ---
Pt is A/Ox4. Pt slept very well all shift. No acute changes. Pt has left dressing to hip C/D/I. Pt had wedge pillow between legs in place all night. Pt tolerated well. Emery draining clear, yellow, urine. Pt denies any nausea. Admin meds per MAR. IV patent infusing LR @ 75ml/hr. pt is able to make needs known to staff, call light within reach. No concerns at this time.
--- NOTE | 2021-04-24 06:26 | ECG_ITS ---
APPROVED REPORT Exam: Resting ECG HR:92 bpm ECG Measurements Heart Rate 92 AXES NH 224 P 43 QRSd 152 QRS -49 QT 378 T 24 QTc 467 Conclusion Sinus rhythm with 1st degree AV block Right bundle branch block Left anterior fascicular block Bifascicular block Minimal voltage criteria for LVH, may be normal variant Abnormal ECG Electronically signed by : Almas Rust, 04/24/2021 22:09:13
[2021-04-24 06:51] LABS: Lymphocytes # 0.7 K/mm3 (0.7-4.5)
[2021-04-24 07:01] LABS: Basophils % 0.2 % (0.1-2.0); Eosinophils % 0.3 % (0.1-12.0); Hematocrit 33.1 % (42.0-52.0); Lymphocytes % 5.2 % (10-50); Mean Corpuscular HGB Conc 34.4 g/dL (31.8-35.4); Mean Corpuscular Hemoglobin 31.6 pg (27.0-31.2); Mean Corpuscular Volume 91.9 fl (80-94); Mean Platelet Volume 7.9 fl (7.4-10.4); Monocytes # 0.7 K/mm3 (0.1-1.0); Monocytes % 5.3 % (1.7-9.3); Neutrophils # 11.6 K/mm3 (1.8-7.8); Neutrophils % 88.9 % (37.0-80.0); Platelet Count 239 K/mm3 (142-424); Red Cell Distribution Width 15.4 % (11.5-17.5)
[2021-04-24 07:03] LABS: Alanine Aminotransferase 18 U/L (12-78); Albumin Level 3.5 g/dl (3.5-5.0); Albumin/Globulin Ratio 1.3 (1.1-1.8); Alkaline Phosphatase 53 U/L (38-126); Anion Gap 9.7 mEq/L (5-15); Aspartate Amino Transferase 67 U/L (17-59); Bilirubin,Total 0.8 mg/dl (0.2-1.3); Blood Urea Nitrogen 19 mg/dl (9-20); Carbon Dioxide 29 mmol/L (22.0-30.0); Chloride 96 mmol/L (98-107); Creatinine Clearance Estimated 77 mL/min (50-200); Estimated Glomerular Filt Rate 59 ml/min (>60); GFR (African American) 71 ML/MIN (>60); Globulin 2.8 g/dL (1.3-3.2); Glucose 113 mg/dl (74-100); Hemoglobin 11.4 g/dL (14.1-18.0); MANUAL DIFFERENTIAL MANUAL DIFFERENTIAL (MANUAL DIFF); Potassium 3.7 mmoL/L (3.5-5.1); Sodium 131 mmol/L (136-145); Total Protein,Serum 6.3 g/dl (6.3-8.2)
[2021-04-24 07:05] LABS: Anion Gap 10.8 mEq/L (5-15); Blood Urea Nitrogen 20 mg/dl (9-20); Calcium 8.1 mg/dl (8.4-10.2); Carbon Dioxide 29 mmol/L (22.0-30.0); Chloride 95 mmol/L (98-107); Creatinine Clearance Estimated 77 mL/min (50-200); Estimated Glomerular Filt Rate 59 ml/min (>60); GFR (African American) 71 ML/MIN (>60); Glucose 113 mg/dl (74-100); Potassium 3.8 mmoL/L (3.5-5.1); Sodium 131 mmol/L (136-145)
[2021-04-24 07:18] LABS: Lymphocytes % 3 % (10-50); Monocytes % 4 % (2-9); Neutrophils % 91 % (42-76); Platelet Estimate Normal; Spherocytes 2+; Total Cells Counted 100
--- NOTE | 2021-04-24 07:38 | HMH.ANESII ---
[facility] Anesthesia Record Part II Discharge Time: 12:05 Destination: Surgical Day Care (OP Surgery) PACU nurse assessment reviewed?: Yes Patient Condition:: Good Anesthesia Complications:: None Swallowing reflex intact?: Yes Cyanosis?: No Blood Pressure: 137/74 Pulse Rate: 76 Temperature: 99.2 F Mental Status: Alert & Oriented Pain level:: 0 Nausea and/or vomitting:: None Intake, IV Amount: 0
--- NOTE | 2021-04-24 09:02 | HMH.ACPN2 ---
Internal Medicine - PN: Subj *Date: 04/24/21 *Time: 09:02 Interval history: Overall patient is doing very nicely. Surgery went well yesterday. Was able to eat well afterwards, mild nausea last night. Has already started PT/OT, has ambulated around the room, minimal pain increase, now 6/10 based on his baseline of 4/10 before ambulation. Physical therapy was very pleased with his effort and balance. Exam Vital signs and Labs for Last 24 Hours: Temp Pulse Resp BP Pulse Ox 99.2 F 90 21 137/74 94 L 04/24/21 07:38 04/24/21 08:00 04/24/21 04:00 04/24/21 07:38 04/24/21 04:00 Laboratory Results - last 24 hr 04/23/21 09:00: Urine Color Yellow, Urine Appearance Clear, Urine pH 7.5, Ur Specific [place] 1.010, Urine Protein Negative, Urine Glucose (UA) Negative, Urine Ketones Negative, Urine Blood Negative, Urine Nitrate Negative, Urine Bilirubin Negative, Urine Urobilinogen 0.2, Ur Leukocyte Esterase Negative, Urine RBC Occasional, Urine WBC 3-5, Ur Squamous Epith Cells Occasional, Urine Bacteria None 04/24/21 05:56: Sodium 131 L, Potassium 3.8, Chloride 95 L, Carbon Dioxide 29, Anion Gap 10.8, BUN 20, Creatinine 1.20, Estimated Creat Clear 77, Estimated GFR 59, Est GFR ( Amer) 71, Glucose 113 H, Calcium 8.1 L 04/24/21 06:19: WBC 13.0 H, RBC 3.60 L, Hgb 11.4 L D, Hct 33.1 L, MCV 91.9, MCH 31.6 H, MCHC 34.4, RDW 15.4, Plt Count 239 D, MPV 7.9, Neut % (Auto) 88.9 H, Lymph % (Auto) 5.2 L, [place] % (Auto) 5.3, Eos % (Auto) 0.3, Baso % (Auto) 0.2, Neut # (Auto) 11.6 H, Lymph # (Auto) 0.7, [place] # (Auto) 0.7, Eos # (Auto) 0.0, Baso # (Auto) 0.0, Total Counted 100, Neutrophils % (Manual) 91 H, Band Neutrophils % 2.0, Lymphocytes % (Manual) 3 L, Monocytes % (Manual) 4, Platelet Estimate Normal, Spherocytes 2+ 04/24/21 06:19: Sodium 131 L, Potassium 3.7, Chloride 96 L, Carbon Dioxide 29, Anion Gap 9.7, BUN 19, Creatinine 1.20, Estimated Creat Clear 77, Estimated GFR 59, Est GFR ( Amer) 71, Glucose 113 H, Calcium 8.0 L, Total Bilirubin 0.8, AST 67 H, ALT 18, Alkaline Phosphatase 53, Total Protein 6.3, Albumin 3.5, Globulin 2.8, Albumin/Globulin Ratio 1.3 I & O for Last 24 hours: Intake & Output 04/21/21 04/22/21 04/23/21 04/24/21 11:59 11:59 11:59 11:59 Intake Total 1720 / 1720 2121 / 2121 Output Total 1025 / 1025 Balance 1720 / 1720 1096 / 1096 Weight 221 lb 5 oz 231 lb 6 oz - Constitutional no acute distress - *Routine HEENT Exam Head: Present: normocephalic Eye: Present: EOMI, PERRL ENT: Present: mucous membranes moist - *Routine Neck Exam Present: supple. Absent: lymphadenopathy - *Routine Respiratory Exam Present: CTA bilaterally - *Routine Cardiovascular Exam Present: RRR - *Routine Abdominal Exam Present: soft, normoactive bowel sounds. Absent: tenderness - *Routine Extremities Exam Absent: cyanosis, clubbing, edema - *Routine Skin Exam Present: warm. Absent: rash - *Routine Neurological Exam Present: alert, oriented X3 Assessment and Plan (1) Hip fracture, left Start date: 04/22/21 Status: Acute Qualifiers: Encounter type: initial encounter Fracture type: closed Qualified Code(s): S72.002A - Fracture of unspecified part of neck of left femur, initial encounter for closed fracture Category: Medical Code(s): S72.002A - Fracture of unspecified part of neck of left femur, initial encounter for closed fracture (2) History of atrial fibrillation Status: Acute Category: Medical Code(s): Z86.79 - Personal history of other diseases of the circulatory system - Assessment and plan all Dx Assessment and Plan for all problems:: Good response to surgery. Labs fairly stable. Minimally low calcium, replace this today. Anticipate discharge home with home health if he continues to do well with PT/OT and surgical input is agreeable.
--- NOTE | 2021-04-24 09:05 | HMH.PTEV ---
Physical Therapy Evaluation Rehab PT IP Evaluation Start: 04/23/21 12:26 Freq: ONCE Status: Active Protocol: Document 04/24/21 09:02 [facility] (Rec: 04/24/21 09:05 [facility] [id number]) Subjective/History History History This is the initial IP PT evaluation for Sreedhar Jefferson. Pt is a 75 y/o male who suffered a fall from a ladder at home while trying to replace a basketball goal net. Pt landed on his left hip and consequently had severe pain and difficulty weightbearing. Pt was admitted to [facility] and found to have L hip fx. Pt underwent L hip hemiarthroplasty. Subjective Subjective pt reports 6-7 pain Rehab PT IP Eval Objective Appearance Patient Behavior Appropriate,Cooperative Patient Orientation Person,Place,Time Difficulty following instructions none Speech Pattern Clear,Appropriate Ambulation Patient Able to Ambulate Yes Ambulation Observation IP General Gait Pattern Observation Antalgic Gait Ambulation Distance (feet) 25 Ambulation Assistive Device Rolling Walker Ambulation Ability Contact Guard/Hand Hold Balance Ability to Arise Able, uses arms to help Sitting Balance Steady, safe Standing Balance Steady, wide stance Dynamic Sitting Balance Ability Good Dynamic Standing Balance Ability Fair Transfers Bed Transfer Ability Supervision/Stand by Chair Transfer Ability Supervision/Stand by Sit to Stand Bed Transfer Ability Contact Guard/Hand Hold Sit to Stand Chair Transfer Ability Contact Guard/Hand Hold ROM LLE PT ROM Status ABN Abnormal ROM Comment post hip precautions and pain limit MMT LLE PT MMT ABN Abnormal MMT Grade 3-/5 Rehab PT IP prob,goals,plan Problems Date of Evaluation: 04/24/21 PT IP Problems Transfers,Gait,Balance,Self care Rehab Potential Rehab Potential Good Equipment Needs Assistive Devices Rolling / Wheeled Walker Plan PT Intervention Plan Transfers,Gait,Balance,Self care,Safety,Therapeutic Exercise PT Plan Frequency BID Duration LOS Discharge Goals Bed Transfer Ability Supervision/Stand by Sit to Stand Chair Transfer
--- NOTE | 2021-04-24 10:08 | HMH.OTEV ---
OT Inpatient Evaluation Rehab OT IP Evaluation Start: 04/23/21 12:26 Freq: ONCE Status: Complete Protocol: Document 04/24/21 10:03 [facility] (Rec: 04/24/21 10:07 [facility] [id number]) Rehab OT IP Assessment Subjective History Pt oriented x 3 on arrival. Pt agreeable to engage in therapy evaluation. Pt was admitted via ED on 04/22/21 due to a fall at home off of a ladder resulting in L hip fx. Pt had an uncemented bipolar hemiarthroplasty on 04/23/21. Pt has a past medical history of Atrial Fibrillation, Cancer , Hypertension, Palpitations. Pt lives at home with his . Pt claims he is completely independent with all ADLs and IADLs. Pt did not require AE during daily functional tasks. Subjective I could do what I needed. Objective Patient Orientation Person,Place,Birthday Upper Extremity Gross ROM WFL Bed Mobility bed mobility-scooting,bed mobility - supine/sit,bed mobility - rolling Assist Level Minimal x 1 (25% assist) Transfer Training Sit/Stand Transfer Assist Level Contact Guard/Hand Hold Chair Transfer Ability Contact Guard/Hand Hold Chair Transfer Technique Sit to/from Ambulatory Chair Transfer Assistive Devices Rolling Walker Rehab OT IP prob,goals,plan Problems Date of Evaluation: 04/24/21 OT IP Problems Bed Mobility,Transfers,Gait, Balance,Self care,Safety Rehab Potential Rehab Potential Good Equipment Needs Assistive Devices Rolling / Wheeled Walker Plan OT intervention Plan Bed Mobility,Transfers,Gait, Balance,Self care,Safety, Therapeutic Exercise OT Plan Frequency BID Duration LOS Discharge Goals Bed Mobility Ability Standby Assistance Sit to Stand Chair Transfer Ability Supervision/Stand by Chair Transfer Ability Independent,Supervision/Stand by Chair Transfer Technique Sit to/from Ambulatory Chair Transfer Assistive Devices Rolling Walker Feeding Ability Independent Lower Body Dressing Ability Standby Assistance Upper Body Dressing Ability Standby Assi
--- NOTE | 2021-04-24 10:30 | SW/DCPLANNER ---
Addendum entered by [facility] 04/26/21 12:42: Smita with [facility] is now saying they could not meet patients needs and referral was forwarded to [facility]. I have spoke with Chata garcia/ [facility] and she has stated that services will start for this patient tomorrow. I have called and informed patient. Addendum entered by [facility] 04/26/21 09:43: S[facility] has confirmed that services will begin this week for this patient. Addendum entered by [facility] 04/25/21 12:39: Smita with [facility] confirmed that information has been reviewed and services will begin this week for this patient. Addendum entered by [facility] 04/25/21 10:22: Sandrita Bennett has confirmed that DME is being delivered to hospital room/home today. Original Note: I spoke with this patient this AM regarding discharge plans. Patient and stated that plan is to return home with home health services at time of discharge. Patient prefers to use [facility]. I will fax patient information/order at time of discharge. Patient stated that he will also need a rolling walker and bedside commode. Patient prefer DME be ordered thru [facility]. Patient is planned to discharge tomorrow pending no setback. I will fax information once discharge date is known.
--- NOTE | 2021-04-24 10:33 | PC.NURSE ---
Patient will need a bedside commode due to distance to bathroom in home
--- NOTE | 2021-04-24 13:28 | HMH.ORTHPN ---
Subjective Date: 04/24/21 Time: 13:00 Principal diagnosis: Fracture neck of femur, left; status post hemiarthroplasty left hip Interval history: Patient is status post bipolar hemiarthroplasty, left hip, post op day #1. Patient is lying down on the bed and says he is doing well. He says he has minimal pain and says it's well-controlled with as needed pain medication. He did have nausea and vomited couple of times last evening but reports no nausea or vomiting this morning. No history of any cough, chest pain, shortness of breath or palpitations. Patient says he is eating and drinking well. No history of any distal tingling or numbness. He reports that he mobilized well with physical therapy this morning using a walker. PN: Obj Ex Vital signs: Temp Pulse Resp BP Pulse Ox 98.1 F 85 21 99/59 L 90 L 04/24/21 12:00 04/24/21 12:00 04/24/21 12:00 04/24/21 12:00 04/24/21 12:00 Narrative: Laboratory Results - last 24 hr 04/24/21 05:56: Sodium 131 L, Potassium 3.8, Chloride 95 L, Carbon Dioxide 29, Anion Gap 10.8, BUN 20, Creatinine 1.20, Estimated Creat Clear 77, Estimated GFR 59, Est GFR ( Amer) 71, Glucose 113 H, Calcium 8.1 L 04/24/21 06:19: WBC 13.0 H, RBC 3.60 L, Hgb 11.4 L D, Hct 33.1 L, MCV 91.9, MCH 31.6 H, MCHC 34.4, RDW 15.4, Plt Count 239 D, MPV 7.9, Neut % (Auto) 88.9 H, Lymph % (Auto) 5.2 L, [place] % (Auto) 5.3, Eos % (Auto) 0.3, Baso % (Auto) 0.2, Neut # (Auto) 11.6 H, Lymph # (Auto) 0.7, [place] # (Auto) 0.7, Eos # (Auto) 0.0, Baso # (Auto) 0.0, Total Counted 100, Neutrophils % (Manual) 91 H, Band Neutrophils % 2.0, Lymphocytes % (Manual) 3 L, Monocytes % (Manual) 4, Platelet Estimate Normal, Spherocytes 2+ 04/24/21 06:19: Sodium 131 L, Potassium 3.7, Chloride 96 L, Carbon Dioxide 29, Anion Gap 9.7, BUN 19, Creatinine 1.20, Estimated Creat Clear 77, Estimated GFR 59, Est GFR ( Amer) 71, Glucose 113 H, Calcium 8.0 L, Total Bilirubin 0.8, AST 67 H, ALT 18, Alkaline Phosphatase 53, Total Protein 6.3, Albumin 3.5, Globulin 2.8, Albumin/Globulin Ratio 1.3 Intake & Output 04/22/21 04/23/21 04/24/21 04/25/21 11:59 11:59 11:59 11:59 Intake Total 1720 / 1720 2121 / 2121 480 / 480 Output Total 1025 / 1025 Balance 1720 / 1720 1096 / 1096 480 / 480 Weight 221 lb 5 oz 231 lb 6 oz Exam General appearance: alert, active, awake, no acute distress Cardiovascular: regular rate & rhythm, normal peripheral pulses Respiratory: No respiratory distress noted, speaks in full sentences ABD: soft and non tender Neuro: alert, awake, oriented x 3 Psych: Appropriate mood and affect On examination of the lower extremities the limb lengths are equal. Thigh and calf are soft and nontender. On examination of the LEFT hip the dressings are clean, dry and intact. No soakage or strikethrough noted. Distal pulses are 2+. Distal sensation is intact to light touch throughout. No motor deficits noted distally. - Urinary Catheter Management Coude Cath placed during this visit: no Emery Cath placed during this visit: no Progress Note: A&P (1) Hip fracture, left Status: Acute (2) History of atrial fibrillation Status: Acute Assessment and Plan for All Diagnoses:: I have reviewed the clinical findings and progress with the patient. Patient is doing well and reports no problems. Patient is mobilizing well weightbearing as tolerated on the LEFT side with the walker and to continue the same. Continue DVT prophylaxis. Continue abduction pillow when in bed and continue standard precautions for the posterior approach hip surgery. Discontinue IV fluids as he is eating and drinking well. Case management looking into discharge planning. From an orthopedic standpoint, patient should be ready for discharge tomorrow; disposition as per Dr. Rust's team. Recommend DVT prophylaxis for 6 weeks postop- the appropriate agents include Lovenox, Aspirin 325 mg, Xarelto, Eliquis and Coumadin. Continue medical management as per
--- NOTE | 2021-04-24 19:36 | PC.NURSE ---
Pt has done well on RA this shift w/ o2 sats >90 this shift. Pt has c/o hip pain x2 this shift, and reported satisfactory results after PRN pain meds. No other acute changes or complaints at this time. Will continue to monitor.
[2021-04-25] VITALS: BP 104/63; PULSE 80; PULSE 87; RESP 16; TEMP 36.7
--- NOTE | 2021-04-25 03:33 | PC.NURSE ---
PATIENT HAS SLEPT WELL THIS SHIFT. HE HAS HAD MODERATE PAIN X1 THAT WAS RELIEVED WITH PRN MEDICATIONS. HIS DRESSING IS C/D/I AND SURROUNDING SKIN SHOWS NO S/S OF INFECTION. PATIENT IS A&O X4. HE VOIDS PER URINAL. ABDUCTION WEDGE HAS BEEN IN PLACE THROUGH THE NIGHT. PT WEARS A PRECIOUS HOSE ON RIGHT LOWER EXTREMITY. ALL DISTAL PULSES 2+. CALL PARK WITHIN REACH. WILL CONTINUE TO MONITOR.
[2021-04-25 04:00] VITALS: BP 118/69; PULSE 80; RESP 18; TEMP 36.7; O2SAT 94
[2021-04-25 05:00] VITALS: BMI 28.1
[2021-04-25 07:15] LABS: Basophils % 0.2 % (0.1-2.0); Eosinophils # 0.2 K/mm3 (0.0-0.4); Eosinophils % 1.5 % (0.1-12.0); Hematocrit 30.6 % (42.0-52.0); Hemoglobin 10.9 g/dL (14.1-18.0); Lymphocytes # 0.7 K/mm3 (0.7-4.5); Mean Corpuscular HGB Conc 35.5 g/dL (31.8-35.4); Mean Corpuscular Hemoglobin 31.8 pg (27.0-31.2); Mean Corpuscular Volume 89.6 fl (80-94); Mean Platelet Volume 8.5 fl (7.4-10.4); Monocytes # 0.9 K/mm3 (0.1-1.0); Monocytes % 7.6 % (1.7-9.3); Neutrophils # 9.8 K/mm3 (1.8-7.8); Neutrophils % 84.7 % (37.0-80.0); Platelet Count 206 K/mm3 (142-424); Red Blood Count 3.42 M/mm3 (4.60-6.20); Red Cell Distribution Width 15.3 % (11.5-17.5); White Blood Count 11.5 K/mm3 (4.8-10.8)
--- NOTE | 2021-04-25 07:31 | HMH.DCSUM ---
General - General Admission date:: 04/22/21 Discharge date: 04/25/21 HPI HPI: 75-year-old male fell from the second rung of a ladder yesterday while changing the net on a basketball goal landing on his left hip and sustaining a surgical neck fracture of the left hip. Patient was admitted for hip repair and is planned for left hemiarthroplasty this a.m. Past medical history significant for atrial fibrillation status post ablation procedure. Patient takes carvedilol. He denies chest pain, shortness of breath, palpitations. Hospital Course Hospital Course: Patient admitted for fall with left hip fracture. Orthopedics consulted, appreciate their assistance in care of patient. Taken to the OR on 04/23/2021 for surgical fixation of displaced intracapsular fracture at the neck of left femur. Hemiarthroplasty performed. Operation was uncomplicated. Of note, the articular cartilage of the acetabulum was well preserved without evidence of any arthritic changes. The proximal femur bone quality is good. Bone from the femoral head and neck was sent for histopathological examination as patient has history of metastatic lung cancer. Patient tolerated physical therapy after the procedure. Able to walk more than 75 feet with PT. Meeting criteria for discharge home with home health. Patient and his are okay with this plan. Orthopedic recommendations as follows: Patient is mobilizing well weightbearing as tolerated on the LEFT side with the walker and to continue the same. Continue DVT prophylaxis. Continue abduction pillow when in bed and continue standard precautions for the posterior approach hip surgery. Recommend DVT prophylaxis for 6 weeks postop- the appropriate agents include Lovenox, Aspirin 325 mg, Xarelto, Eliquis and Coumadin. Discharged on high-dose aspirin. We will plan for follow-up in the outpatient setting with our office. Examined on day of discharge. Patient in good spirits. Continue pain medication for a few days as needed, overall doing well. Family/ at bedside, updated of plan. Objective Vital signs: Temp Pulse Resp BP Pulse Ox 98.1 F 80 18 118/69 94 L 04/25/21 04:00 04/25/21 04:00 04/25/21 04:00 04/25/21 04:00 04/25/21 04:00 Narrative: - Constitutional no acute distress - *Routine HEENT Exam Head: Present: normocephalic Eye: Present: EOMI, PERRL ENT: Present: mucous membranes moist - *Routine Neck Exam Present: supple. Absent: lymphadenopathy - *Routine Respiratory Exam Present: CTA bilaterally - *Routine Cardiovascular Exam Present: RRR - *Routine Abdominal Exam Present: soft, normoactive bowel sounds. Absent: tenderness - *Routine Extremities Exam Absent: cyanosis, clubbing, edema; left hip TTP, post surgical dressing CDI - *Routine Skin Exam Present: warm. Absent: rash - *Routine Neurological Exam Present: alert, oriented X3 DS: Diagnosis - Discharge Diagnosis (1) Hip fracture, left Status: Acute (2) History of atrial fibrillation Status: Acute Discharge Plan - Patient Discharge Instructions ACTIVITY: Other DIET: continue same diet Patient Instructions: Hip Fracture, DI for Hip Fracture, DI for Hip Replacement, DI for Surgical Site Infection, Catheter-associated Urinary Tract Infection - Follow up Plan Follow up with: Leonid Mason MD [Staff Physician] - 05/09/21 1:00 pm (will need to arrive 30 minutes prior to appointment for x-ray) Almas Rust MD [Primary Care Provider] - 05/10/21 10:30 am Disposition: Home Health Service Condition at discharge:: Improving Home Medications: Home Medications Medication Instructions Recorded Confirmed Type Aspirin [Aspirin 81mg chewable 81 mg PO DAILY 08/04/18 04/22/21 History tab] carvediloL [Carvedilol 25mg Tab] 25 mg PO BID 08/04/18 04/22/21 History olmesartan 40 mg-amlodipine 10 1 tab PO DAILY 08/07/19 04/22/21 History mg-hydrochlorothiazide 25 mg tablet renee
[2021-04-25 07:49] LABS: Anion Gap 9.6 mEq/L (5-15); Blood Urea Nitrogen 20 mg/dl (9-20); Carbon Dioxide 28 mmol/L (22.0-30.0); Chloride 94 mmol/L (98-107); Creatinine Clearance Estimated 92 mL/min (50-200); Estimated Glomerular Filt Rate 82 ml/min (>60); GFR (African American) 99 ML/MIN (>60); Glucose 110 mg/dl (74-100); Potassium 3.6 mmoL/L (3.5-5.1); Sodium 128 mmol/L (136-145)
[2021-04-25 08:00] VITALS: BP 115/65; PULSE 80; PULSE 82; RESP 18; TEMP 36.6; O2SAT 95
== END 2021-04-25 10:50 | disposition home health service (06) ==
LOC: ER 16:14 → 2ND 04-23 07:25
PROVIDERS: Orthopaedic Surgery; Admitting Provider Family Medicine; Emergency Provider Emergency Medicine; PCP Internal Medicine Adolescent Medicine; Visit Provider Internal Medicine Adolescent Medicine
PROC: (CPT 27125; principal; 2021-04-23 08:00)
DX: S72.012A Unspecified intracapsular fracture of left femur, initial encounter for closed fracture (principal); W11.XXXA Fall on and from ladder, initial encounter; Y92.017 Garden or yard in single-family (private) house as the place of occurrence of the external cause; Z20.822 Contact with and (suspected) exposure to COVID-19; I48.91 Unspecified atrial fibrillation; I10 Essential (primary) hypertension; Z79.899 Other long term (current) drug therapy
CPT/HCPCS: 27236; 36415; 71045; 73502; 73700; 80048; 80053; 81001; 85007; 85025; 85610; 85730; 86850; 88305; 88311; 88342; 93005; 96374; 96375; 97116; 97161; 97166; 97530; 99282; C1713; C1776; G0378; J2405; J2704; J3370; U0003

== ENCOUNTER → 2021-05-09 11:56 | Outpatient (CLI) | payer MEDICARE, OTHER, SELFPAY ==
--- NOTE | 2021-05-09 12:00 | XR_ITS ---
PROCEDURE: XR HIP LT 2-3V W/PELVIS CLINICAL INDICATION: sp LT hip bipolar hemiarthroplasty COMPARISON: CR XR HIP LT 2-3V W/PELVIS from 04/23/2021 FINDINGS: Status post left hip hemiarthroplasty placement with good alignment. No evidence of orthopedic complications. There is generalized vascular calcification. IMPRESSION: Good alignment status post left hip hemiarthroplasty Dictated by: Riky Orona MD 05/09/2021 13:07 Riky Orona MD in [facility] 05/09/2021 13:07
== END ==
PROVIDERS: PCP Internal Medicine Adolescent Medicine; Visit Provider Orthopaedic Surgery
DX: Z09 Encounter for follow-up examination after completed treatment for conditions other than malignant neoplasm (principal); S72.002D Fracture of unspecified part of neck of left femur, subsequent encounter for closed fracture with routine healing
CPT/HCPCS: 73502

== ENCOUNTER → 2021-05-10 11:15 | Outpatient (CLI) | payer MEDICARE, OTHER, SELFPAY ==
[2021-05-10 11:43] LABS: Basophils % 0.4 % (0.1-2.0); Eosinophils # 0.6 K/mm3 (0.0-0.4); Eosinophils % 5.3 % (0.1-12.0); Hematocrit 35.7 % (42.0-52.0); Hemoglobin 12.2 g/dL (14.1-18.0); Lymphocytes # 0.9 K/mm3 (0.7-4.5); Lymphocytes % 8.1 % (10-50); Mean Corpuscular HGB Conc 34.1 g/dL (31.8-35.4); Mean Corpuscular Hemoglobin 30.1 pg (27.0-31.2); Mean Corpuscular Volume 88.2 fl (80-94); Mean Platelet Volume 7.5 fl (7.4-10.4); Monocytes # 0.8 K/mm3 (0.1-1.0); Neutrophils # 9.1 K/mm3 (1.8-7.8); Neutrophils % 79.1 % (37.0-80.0); Platelet Count 593 K/mm3 (142-424); Red Blood Count 4.04 M/mm3 (4.60-6.20); Red Cell Distribution Width 15.6 % (11.5-17.5); White Blood Count 11.5 K/mm3 (4.8-10.8)
[2021-05-10 12:03] LABS: Alanine Aminotransferase 16 U/L (12-78); Albumin Level 4.1 g/dl (3.5-5.0); Albumin/Globulin Ratio 1.2 (1.1-1.8); Alkaline Phosphatase 105 U/L (38-126); Anion Gap 14.9 mEq/L (5-15); Aspartate Amino Transferase 43 U/L (17-59); Bilirubin,Total 0.7 mg/dl (0.2-1.3); Blood Urea Nitrogen 11 mg/dl (9-20); Calcium 9.1 mg/dl (8.4-10.2); Carbon Dioxide 28 mmol/L (22.0-30.0); Chloride 86 mmol/L (98-107); Estimated Glomerular Filt Rate 94 ml/min (>60); GFR (African American) 113 ML/MIN (>60); Globulin 3.3 g/dL (1.3-3.2); Glucose 101 mg/dl (74-100); Potassium 3.9 mmoL/L (3.5-5.1); Sodium 125 mmol/L (136-145); Total Protein,Serum 7.4 g/dl (6.3-8.2)
[2021-05-10 12:35] LABS: Thyroid Stimulating Hormone 7.42 uIU/mL (0.465-4.68)
== END ==
PROVIDERS: Visit Provider Internal Medicine Adolescent Medicine
DX: E03.9 Hypothyroidism, unspecified (principal); Z87.81 Personal history of (healed) traumatic fracture
CPT/HCPCS: 36415; 80053; 84443; 85025

== ENCOUNTER → 2021-06-06 12:26 | Outpatient (CLI) | payer MEDICARE, OTHER, SELFPAY ==
--- NOTE | 2021-06-06 12:30 | XR_ITS ---
PROCEDURE: XR HIP LT 2-3V W/PELVIS CLINICAL INDICATION: left bipolar hemiarthroplasty sx 04/23/21 COMPARISON: CR XR HIP LT 2-3V W/PELVIS from 05/09/2021 FINDINGS: Status post left hip hemiarthroplasty. There is good alignment of the prosthesis no evidence of orthopedic complication. Mild osteoarthritic changes are present involving the right hip and there are multiple pelvic phleboliths present IMPRESSION: Good alignment status post left hip hemiarthroplasty Dictated by: Riky Orona MD 06/06/2021 13:58 Riky Orona MD in [facility] 06/06/2021 13:58
== END ==
PROVIDERS: PCP Internal Medicine Adolescent Medicine; Visit Provider Orthopaedic Surgery
DX: M25.552 Pain in left hip; Z96.642 Presence of left artificial hip joint
CPT/HCPCS: 73502

== ENCOUNTER → 2021-06-14 08:55 | Outpatient (CLI) | payer MEDICARE, OTHER, SELFPAY ==
--- NOTE | 2021-06-14 08:56 | XR_ITS ---
PROCEDURE: XR DEXA AXIAL SKELETON CLINICAL HISTORY: evaluate for osteoporosis COMPARISON: No exams were available for comparison FINDINGS: The right hip BMD is 0.663 with a T-score of -2.0. Left forearm 1/3 radius is 0.545 BMD with a T-score of -5.1 The lumbar spine BMD is 1.192 with a T-score of 0.9. Prior kyphoplasty at L3 falsely increasing the density of the lumbar spine. IMPRESSION: This patient is considered osteoporotic according to the World Health Organization criteria. Fracture risk is high. Treatment is advised. Based on these results a follow-up exam is recommended in one year. Dictated by: Riky Orona MD 06/14/2021 11:35 Riky Orona MD in [facility] 06/14/2021 11:35
== END ==
PROVIDERS: PCP Internal Medicine Adolescent Medicine; Visit Provider Orthopaedic Surgery
DX: M81.0 Age-related osteoporosis without current pathological fracture (principal)
CPT/HCPCS: 77080

== ENCOUNTER → 2021-07-12 10:14 | Outpatient (CLI) | payer MEDICARE, OTHER, SELFPAY ==
[2021-07-12 10:32] LABS: Basophils % 0.3 % (0.1-2.0); Eosinophils # 0.6 K/mm3 (0.0-0.4); Eosinophils % 5.9 % (0.1-12.0); Hematocrit 39.5 % (42.0-52.0); Hemoglobin 13.1 g/dL (14.1-18.0); Lymphocytes # 1.2 K/mm3 (0.7-4.5); Lymphocytes % 12.1 % (10-50); Mean Corpuscular HGB Conc 33.3 g/dL (31.8-35.4); Mean Corpuscular Hemoglobin 29.8 pg (27.0-31.2); Mean Corpuscular Volume 89.4 fl (80-94); Mean Platelet Volume 8.7 fl (7.4-10.4); Monocytes # 0.8 K/mm3 (0.1-1.0); Monocytes % 8.1 % (1.7-9.3); Neutrophils # 7.5 K/mm3 (1.8-7.8); Neutrophils % 73.6 % (37.0-80.0); Platelet Count 520 K/mm3 (142-424); Red Blood Count 4.42 M/mm3 (4.60-6.20); Red Cell Distribution Width 15.1 % (11.5-17.5); White Blood Count 10.1 K/mm3 (4.8-10.8)
[2021-07-12 11:02] LABS: Alanine Aminotransferase 12 U/L (12-78); Albumin Level 4.2 g/dl (3.5-5.0); Albumin/Globulin Ratio 1.2 (1.1-1.8); Alkaline Phosphatase 77 U/L (38-126); Aspartate Amino Transferase 31 U/L (17-59); Bilirubin,Total 0.6 mg/dl (0.2-1.3); Blood Urea Nitrogen 12 mg/dl (9-20); Calcium 9.5 mg/dl (8.4-10.2); Carbon Dioxide 31 mmol/L (22.0-30.0); Chloride 91 mmol/L (98-107); Estimated Glomerular Filt Rate 82 ml/min (>60); GFR (African American) 99 ML/MIN (>60); Globulin 3.4 g/dL (1.3-3.2); Glucose 97 mg/dl (74-100); Sodium 132 mmol/L (136-145); Total Protein,Serum 7.6 g/dl (6.3-8.2)
[2021-07-12 11:19] LABS: 25-OH Vitamin D, Total 57.6 ng/mL (30-100)
[2021-07-12 11:31] LABS: Thyroid Stimulating Hormone 3.83 uIU/mL (0.465-4.68)
[2021-07-12 18:31] LABS: Anion Gap 13.8 mEq/L (5-15); Potassium 3.8 mmoL/L (3.5-5.1)
== END ==
PROVIDERS: Visit Provider Internal Medicine Adolescent Medicine
DX: E03.9 Hypothyroidism, unspecified (principal); I10 Essential (primary) hypertension; M81.0 Age-related osteoporosis without current pathological fracture; Z96.642 Presence of left artificial hip joint; Z87.891 Personal history of nicotine dependence
CPT/HCPCS: 36415; 80053; 82306; 84443; 85025

== ENCOUNTER → 2021-07-18 13:51 | Outpatient (CLI) | payer MEDICARE, OTHER, SELFPAY ==
--- NOTE | 2021-07-18 13:57 | XR_ITS ---
PROCEDURE: XR HIP LT 2-3V W/PELVIS CLINICAL INDICATION: sp lt bipolar hemiarthoplasty, sx 04/23/21 COMPARISON: CR XR HIP LT 2-3V W/PELVIS from 06/06/2021 FINDINGS: Left hip hemiarthroplasty is present with good alignment and no evidence of orthopedic complication. No acute fracture or dislocation. No lytic or blastic change. Mild osteoarthritic changes are present in the right hip and there is generalized vascular calcification. IMPRESSION: Status post left hip hemiarthroplasty with good alignment Dictated by: Riky Orona MD 07/18/2021 14:46 Riky Orona MD in [facility] 07/18/2021 14:46
== END ==
PROVIDERS: PCP Internal Medicine Adolescent Medicine; Visit Provider Orthopaedic Surgery
DX: Z96.649 Presence of unspecified artificial hip joint (principal); M25.552 Pain in left hip
CPT/HCPCS: 73502

== ENCOUNTER → 2021-07-21 11:10 | Outpatient (CLI) | payer MEDICARE, OTHER, SELFPAY ==
--- NOTE | 2021-07-21 11:22 | CT_ITS ---
PROCEDURE: CT CHEST WO CON CLINICAL INDICATION: MALIGNANT NEOPLASM OF UNSPECIFIED PART/BRONCHUS OF LUNG COMPARISON: CT CT CHEST W CON from 08/03/2019 TECHNIQUE: Axial images obtained with sagittal and coronal reformats. All CT scans at the facility use one or more dose reduction, viz: automated exposure control, ma/kV adjustment per patient size (including targeted exams where dose is matched to indication, i.e. head), or iterative reconstruction technique. FINDINGS: HEART AND MEDIASTINAL STRUCTURES: Extensive mediastinal adenopathy has developed since the previous exam. Largest node is present in the anterior mediastinum on the left measuring 4.4 by 4.6 by 4.6 cm. There has been a prior CABG. Extensive coronary artery calcification is present. LUNGS AND PLEURAL SPACES: COPD changes. Small right pleural effusion. The right posterior pleural based mass in the midlung has increased in size measuring 5.4 x 2.7 x 4.9 cm. There is adjacent mixed lytic and sclerotic changes of the underlying 7th rib which is not significantly changed. BONY STRUCTURES: Mixed lytic and sclerotic changes of the right 7th rib posteriorly not significantly changed. UPPER ABDOMEN: Unremarkable. ADDITIONAL FINDINGS: No other significant abnormalities. IMPRESSION: Enlarging pleural base mass in the superior segment of the right lower lobe posteriorly consistent with recurrence neoplasm now with prominent mediastinal adenopathy and small right pleural effusion. Dictated by: Riky Orona MD 07/21/2021 12:23 Riky Orona MD in [facility] 07/21/2021 12:23
[2021-07-21 11:40] LABS: Basophils % 0.3 % (0.1-2.0); Eosinophils # 0.8 K/mm3 (0.0-0.4); Eosinophils % 8.2 % (0.1-12.0); Hematocrit 39.4 % (42.0-52.0); Hemoglobin 12.7 g/dL (14.1-18.0); Lymphocytes # 0.9 K/mm3 (0.7-4.5); Lymphocytes % 10.2 % (10-50); Mean Corpuscular HGB Conc 32.1 g/dL (31.8-35.4); Mean Corpuscular Hemoglobin 29.1 pg (27.0-31.2); Mean Corpuscular Volume 90.5 fl (80-94); Mean Platelet Volume 6.6 fl (7.4-10.4); Monocytes # 0.9 K/mm3 (0.1-1.0); Monocytes % 9.4 % (1.7-9.3); Neutrophils # 6.7 K/mm3 (1.8-7.8); Neutrophils % 71.8 % (37.0-80.0); Platelet Count 461 K/mm3 (142-424); Red Blood Count 4.36 M/mm3 (4.60-6.20); Red Cell Distribution Width 14.8 % (11.5-17.5); White Blood Count 9.3 K/mm3 (4.8-10.8)
== END ==
PROVIDERS: PCP Internal Medicine Adolescent Medicine; Visit Provider Internal Medicine Adolescent Medicine
DX: C34.90 Malignant neoplasm of unspecified part of unspecified bronchus or lung (principal); R05.9 Cough, unspecified
CPT/HCPCS: 36415; 71250; 85025

== ENCOUNTER → 2021-10-24 08:58 | Outpatient (CLI) | payer MEDICARE, OTHER, SELFPAY ==
--- NOTE | 2021-10-24 09:12 | XR_ITS ---
FINAL REPORT CLINICAL HISTORY: LT hip eloisa COMPARISON: July 18, 2021 FINDINGS: LEFT HIP Two views including an AP pelvis demonstrate no acute fracture. There are postoperative changes from left hip arthroplasty, stable. There are vascular calcifications. IMPRESSION: No acute bony abnormality. Reviewed, Interpreted and Dictated by Eliezer Mccollum III, MD Transcribed by Dena Wilburn Authenticated by Eliezer Mccollum III, MD on 10/24/2021 11:29:29 AM [facility]
== END ==
PROVIDERS: PCP Internal Medicine Adolescent Medicine; Visit Provider Orthopaedic Surgery
DX: Z09 Encounter for follow-up examination after completed treatment for conditions other than malignant neoplasm (principal); M25.552 Pain in left hip; Z96.642 Presence of left artificial hip joint
CPT/HCPCS: 73502

== ENCOUNTER 2021-11-22 11:09 | Emergency (ER) | payer MEDICARE, OTHER, SELFPAY ==
[2021-11-22] VITALS (12 sets, daily range): BP systolic 125–179; BP diastolic 86–111; PULSE 74–87; RESP 16–23; TEMP 36.6; O2SAT 93–98; BMI 26.5
--- NOTE | 2021-11-22 11:09 | ECG_ITS ---
APPROVED REPORT Exam: Resting ECG HR:80 bpm ECG Measurements Heart Rate 80 AXES QRSd 155 QRS -66 QT 398 T 65 QTc 434 Conclusion 1 Degree AV block LEFT ANTERIOR FASCICULAR BLOCK [QRS AXIS <= -45, QR IN I, RS IN II] VOLTAGE CRITERIA FOR LVH [MEETS CRITERIA IN ONE OF: R(aVL), S(V1), R(V5), R(V5/V6)+S(V1)] POSSIBLE SEPTAL MYOCARDIAL INFARCTION , OF INDETERMINATE AGE [30 ms Q WAVE IN V1/V2] ABNORMAL ECG UNCONFIRMED REPORT Electronically signed by : Almas Rust MD 11/22/2021 21:00:22
--- NOTE | 2021-11-22 11:18 | XR_ITS ---
FINAL REPORT CLINICAL HISTORY: chest pain that shoots into left arm COMPARISON: X-ray dated April 23, 2021; CT a chest from November 22, 2021 FINDINGS: Two views of the chest were obtained. There has been prior sternotomy. The heart size and pulmonary vascularity are within normal limits. There is a possible AP window mass. There is a posterior right mid thorax mass again seen measuring 6.6 cm in height. There is mild right midlung atelectasis. There are small bilateral pleural effusions. There is no pneumothorax. The bony thorax is intact. IMPRESSION: Posterior right mid thorax mass. Possible AP window mass. Small bilateral pleural effusions. Mild right mid lung atelectasis. Reviewed, Interpreted and Dictated by Eliezer Mccollum III, MD Transcribed by Zack Carrillo Authenticated by Eliezer Mccollum III, MD on 11/22/2021 12:46:21 PM [facility]
--- NOTE | 2021-11-22 11:25 | HMH.EDGENADL ---
ED Disposition Clinical Impression: Chest pain Qualifiers: Chest pain type: unspecified Qualified Code(s): R07.9 - Chest pain, unspecified Disposition: Home, Self-Care Condition on Discharge: Good Additional Instructions: Please follow-up with cardiology as soon as possible as well as your primary care physician. Please return to the emergency department with any new or worsening symptoms including worsening chest pain, shortness of breath, fainting coughing up blood or any other new or concerning symptoms. Please also follow-up with your oncology team for worsening thoracic mass extending into your chest wall. Referrals: Almas Rust MD [Primary Care Provider] - Noah Becerra MD [Staff Physician] - - Critical Care Critical Care Time: No Attestation: On 11/22/21, the high probability of a clinically significant, sudden or life threatening deterioration of the following system(s) required my full and direct attention, intervention and personal management. The time I documented below is in addition to time spent performing reported procedures but includes the following listed in this critical care notation. Medical Decision Making - Vinny Inquiry Pt receiving controlled substance: No Vital Signs: 11/22/21 11:20 11/22/21 11:30 11/22/21 12:05 Temperature 97.9 F Temperature Source Oral Pulse Rate 80 78 Pulse Rate [Left Radial] 87 Respiratory Rate 17 17 23 Blood Pressure 125/92 H 152/99 H Blood Pressure [Right Arm] 179/111 H Blood Pressure Mean Blood Pressure Mean [Right Arm] 133 02 Sat by Pulse Oximetry 98 97 94 L Oxygen Delivery Method Room Air Room Air 11/22/21 12:09 11/22/21 12:30 11/22/21 13:00 Temperature Temperature Source Pulse Rate 77 74 76 Pulse Rate [Left Radial] Respiratory Rate 18 16 16 Blood Pressure 152/99 H 135/97 H 127/86 Blood Pressure [Right Arm] Blood Pressure Mean 109 108 104 Blood Pressure Mean [Right Arm] 02 Sat by Pulse Oximetry 96 95 94 L Oxygen Delivery Method Room Air Room Air Room Air 11/22/21 13:30 11/22/21 14:00 11/22/21 14:30 Temperature Temperature Source Pulse Rate 78 81 79 Pulse Rate [Left Radial] Respiratory Rate 16 18 19 Blood Pressure 143/96 H 156/105 H 144/97 H Blood Pressure [Right Arm] Blood Pressure Mean 108 Blood Pressure Mean [Right Arm] 02 Sat by Pulse Oximetry 94 L 95 95 Oxygen Delivery Method Room Air - Lab Data Lab Results 11/22/21 11:15: WBC 8.8, RBC 4.86, Hgb 14.6, Hct 43.1, MCV 88.7, MCH 30.0, MCHC 33.8, RDW 16.0, Plt Count 425 H, MPV 6.9 L, Neut % (Auto) 77.0, Lymph % (Auto) 11.3, [place] % (Auto) 8.4, Eos % (Auto) 3.1, Baso % (Auto) 0.3, Neut # (Auto) 6.8, Lymph # (Auto) 1.0, [place] # (Auto) 0.7, Eos # (Auto) 0.3, Baso # (Auto) 0.0 11/22/21 11:15: Sodium 127 L, Potassium 3.8, Chloride 90 L, Carbon Dioxide 33 H, Anion Gap 7.8, BUN 14, Creatinine 1.10, Estimated Creat Clear 77, Estimated GFR 65, Est GFR ( Amer) 78, Glucose 95, Calcium 9.2, Troponin I < 0.01 11/22/21 14:34: Troponin I < 0.01 Result diagrams: 11/22/21 11:15 11/22/21 11:15 Orders (Tests/Meds): ED MEDICATIONS Discontinued Medications Generic Name Dose Route Start Last Admin Trade Name Billyq PRN Reason Stop Dose Admin Aspirin 324 mg 11/22/21 11:19 11/22/21 11:36 Aspirin 81mg Chewable Tablet PO 11/22/21 11:20 324 mg ONCE ONE Administration Iopamidol 100 ml 11/22/21 12:05 11/22/21 12:05 Iopamidol-370 (76%);100ml Bottle IV 11/22/21 12:06 100 ml ONCE ONE Administration Sodium Chloride 10 ml 11/22/21 12:05 11/22/21 12:05 Sodium Chloride 0.9% 10ml Syr (Rad Only) IV 11/22/21 12:06 10 ml ONCE ONE Administration Sodium Chloride 50 ml 11/22/21 12:05 11/22/21 12:05 Sodium Chloride 0.9% 50ml Bag IV 11/22/21 12:06 50 ml ONCE ONE Administration ORDERS Category Date Time Status Troponin I Q3H Lab 11/22/21 17:30 Ordered Medical Decision Narrative: Patient i
[2021-11-22 11:27] LABS: Basophils % 0.3 % (0.1-2.0); Eosinophils # 0.3 K/mm3 (0.0-0.4); Eosinophils % 3.1 % (0.1-12.0); Hematocrit 43.1 % (42.0-52.0); Hemoglobin 14.6 g/dL (14.1-18.0); Lymphocytes % 11.3 % (10-50); Mean Corpuscular HGB Conc 33.8 g/dL (31.8-35.4); Mean Corpuscular Volume 88.7 fl (80-94); Mean Platelet Volume 6.9 fl (7.4-10.4); Monocytes # 0.7 K/mm3 (0.1-1.0); Monocytes % 8.4 % (1.7-9.3); Neutrophils # 6.8 K/mm3 (1.8-7.8); Platelet Count 425 K/mm3 (142-424); Red Blood Count 4.86 M/mm3 (4.60-6.20); White Blood Count 8.8 K/mm3 (4.8-10.8)
--- NOTE | 2021-11-22 11:27 | CT_ITS ---
FINAL REPORT CLINICAL HISTORY: chest pain, left arm pain COMPARISON: July 21, 2021 FINDINGS: Thin section axial CT images of the chest were obtained with contrast. 3D reformatted images were also obtained. This study was performed with techniques to keep radiation doses as low as reasonably achievable (ALARA). Individualized dose reduction techniques using automated exposure control or adjustment of mA and/or kV according to the patient's size were employed. There is no evidence of pulmonary embolism. There is no evidence of thoracic aortic aneurysm or dissection. There is been median sternotomy. There is right pre-vascular adenopathy with the largest lymph node measuring 23 mm and was 22 mm previously. There is left pre-vascular adenopathy with the the largest lymph node measuring 63 mm and was previously 48 mm. There is mild emphysema. There is a lobular mass involving the periphery of the posterior right mid thorax that extends into the the right posterior chest wall. This is centered at the level of the right 7th posterior rib . The mass measures 6.2 x 4.5 cm and previously measured 5.5 x 3.2 cm. It is visually larger. There is a small right pleural effusion. There is mild right base atelectasis. Limited images of the upper abdomen demonstrate postoperative changes from cholecystectomy. There are degenerative and postoperative changes of the spine. IMPRESSION: Interval worsening of posterior right midthorax mass extending into the chest wall. Worsening mediastinal adenopathy. Reviewed, Interpreted and Dictated by Eliezer Mccollum III, MD Transcribed by Dena Wilburn Authenticated by Eliezer Mccollum III, MD on 11/22/2021 12:47:53 PM [facility]
[2021-11-22 11:29] LABS: Chloride 90 mmol/L (98-107); Potassium 3.8 mmoL/L (3.5-5.1); Sodium 127 mmol/L (136-145)
[2021-11-22 11:32] LABS: Blood Urea Nitrogen 14 mg/dl (9-20); Creatinine Clearance Estimated 77 mL/min (50-200); Estimated Glomerular Filt Rate 65 ml/min (>60); GFR (African American) 78 ML/MIN (>60)
[2021-11-22 11:33] LABS: Anion Gap 7.8 mEq/L (5-15); Calcium 9.2 mg/dl (8.4-10.2); Carbon Dioxide 33 mmol/L (22.0-30.0); Glucose 95 mg/dl (74-100)
[2021-11-22 11:55] LABS: Troponin I < 0.01 ng/ml (0.00-0.034)
--- NOTE | 2021-11-22 12:18 | ECG_ITS ---
APPROVED REPORT Exam: Resting ECG HR:77 bpm ECG Measurements Heart Rate 77 AXES CO 235 P 28 QRSd 162 QRS -68 QT 415 T 48 QTc 447 Conclusion SINUS RHYTHM WITH FIRST DEGREE AV BLOCK RIGHT BUNDLE BRANCH BLOCK [120+ ms QRS DURATION, UPRIGHT V1, 40+ ms S IN I/aVL/V4/V5/V6] LEFT ANTERIOR FASCICULAR BLOCK [QRS AXIS <= -45, QR IN I, RS IN II] MODERATE VOLTAGE CRITERIA FOR LVH, CONSIDER NORMAL VARIANT [MEETS CRITERIA IN ONE OF: R(aVL), S(V1), R(V5), R(V5/V6)+S(V1)] ABNORMAL ECG UNCONFIRMED REPORT Electronically signed by : Almas Rust MD 11/22/2021 20:59:14
--- NOTE | 2021-11-22 12:56 | PC.NURSE ---
waiting emergency planning and response manager back from merissa kulkarni
--- NOTE | 2021-11-22 13:51 | CA_ITS ---
APPROVED REPORT EXAM: Comprehensive 2D, Doppler, and color-flow Echocardiogram Banquet Kitchen Supervisor: Chasity José, RCS, RVS Ht: 6 ft 4 in Wt: 218lbs BSA: 2.30 BP: 152/99 mmHg Indications: CP,enlarging Chest mass, hx-lung CA, Bone CA s/p sternectomy 1997, Afib, HTN, DM Echo Enhancing Agent Comments: Poor acoustic windows due to lung impedence 2D Dimensions IVSd 1.17 cm LVEF (Visual) 77.20 % PWd 0.77 cm LA Volume 50.30 mL LVDd 6.15 cm LA Volume Index 21.90 mL/m2 (M/F) 16-34 LVDs 3.28 cm Left Atrium 3.91 cm LVOT 2.17 cm (M/F) 1.5-2.5 M-Mode Dimensions RVDd 2.63 cm (0.9-2.6) LA Diam 4.57 cm (1.9-4.0) LVDd 5.74 cm (3.5-5.7) Ao Diam 4.22 cm (2.0-3.7) LVDs 3.43 cm (3.5-5.7) IVSd 0.98 cm (0.6-1.1) PWd 0.93 cm (0.6-1.1) EF (Teich) 70.20% EPSs 0.99 cm FS 40.20% EDV (Teich) 162.60 mL TAPSE 2.34 (<1.7) ESV (Teich) 48.50 mL LV Diastology E Decel Time 230.00 (160-240 msec) E/A Ratio 1.52 MED E' 11.80 (< 7 cm/sec) MED A' 7.90 cm/s E'/MED E' Ratio 8.45 (>14) Aortic Valve LVOT Max 95.00 (70-110 cm/s) LVOT VTI 20.28 cm AoV Peak Prince. 160.00 (50-130 cm/s) AO Peak GR. 10.20 mmHg AO Mean GR. 5.10 (<5 mmHg) AO VTI 29.24 (18-25 cm) BRUCE (VTI) 2.57 (2.5-4.5 cm2) Mitral Valve MV A Velocity 66.00 (40-130 cm/s) E/A Ratio 1.52 MV Decel. Time 230.00 (160-240 ms) Pulmonary Valve PV Peak Velocity 64.00 (50-150 cm/s) Tricuspid Valve TR P. Velocity 236.00 cm/s Left Ventricle Left atrium mildly enlarged, left ventricle is normal size, mild concentric left ventricular hypertrophy, visually estimated ejection fraction 55% with no regional wall motion abnormality, diastolic parameters are inconclusive. Right Ventricle Right atrium and right ventricle is normal size and contractility. Aortic Valve Aortic valve is thickened and calcified without aortic stenosis or aortic insufficiency. Mitral Valve Mitral valve is minimally thickened, there is mild mitral regurgitation. Tricuspid Valve Tricuspid valve grossly normal, there is mild tricuspid regurgitation, tricuspid regurgitation jet velocity is inadequate for calculation of the right ventricular systolic pressure. Pulmonic Valve Pulmonic valve is poorly visualized. Great Vessels Aortic root is normal size. Inferior vena cava is poorly visualized. Pericardium No significant pericardial effusion noted. Conclusion 1. Normal left ventricular size, preserved left ventricular systolic function, visually estimated ejection fraction 55% with no regional wall motion abnormality, diastolic parameters are inconclusive in the study. 2. Mild mitral and tricuspid regurgitation. 3. No significant pericardial effusion. 4. Inferior vena cava is poorly visualized. Electronically signed by : Chucho Nathan MD 11/22/2021 20:11:49
--- NOTE | 2021-11-22 13:57 | HMH.CNCARD ---
History of Present Illness Consult date: 11/22/21 Requesting physician: Charlie Garcia Consult reason: chest pain Chief complaint: chest pain History of present illness: This is a 76-year-old white gentleman who presented to the emergency department with left-sided chest pain that started this morning around 7:30 AM. He states that this is a left-sided sharp sensation in the left side of his chest that radiates to the left arm with some numbness in his left hand. The patient denies any associated shortness of breath, nausea or diaphoresis. He states that this has improved significantly since being in the emergency department and he states that he is ready to go home. He denies any fever, chills, nausea, vomiting, diarrhea, PND or orthopnea. He denies any edema. The patient does report that he has a history of bone cancer and just finished radiation treatment. He states that he was told recently by his oncologist that there was not much more that they could do for him. He also reports he has a history of atrial fibrillation status post ablation. His initial troponin is negative. [facility] History I have reviewed the patient's past medical history: Yes Medical History: Reports:: Atrial Fibrillation, Cancer, Hypertension, Palpitations Denies:: Diabetes Mellitus Type 1, Diabetes Mellitus Type 2, Internal Pacemaker, MRSA, Seizures *Have you ever received a pneumonia vaccine?: No *Have you received a flu vaccine this season?: Yes Other Medical History: Reports: Cataracts, Chemotherapy, Radiation Therapy, Thyroid Disease. Denies: Blood Transfusion Reaction Laterality Cases: Bilateral: Tonsillectomy Other Surgeries: Yes: Cancer Surgery, Cholecystectomy, Colonoscopy, Hernia Repair, Sinus Surgery, Other. No: Pacemaker Amputation: No Fractures: Yes (L3 compression fracture-current) - *Social History Smoking Status: Former smoker Tobacco Type: cigarettes # Packs/Day (cigarettes): 0 #Yrs smoked (if former smoker): 20 Alcohol Intake: never Alcohol Intake Frequency:: other Substance Use Type: denies use *Occupational Status:: retired Housing: house Household Members: spouse *Travel in the last 8 weeks: None Family Hx:: No significant family history Meds Home Medications Medication Instructions Recorded Confirmed Type carvediloL [Carvedilol 25mg Tab] 25 mg PO BID 08/04/18 10/24/21 History olmesartan 40 mg-amlodipine 10 1 tab PO DAILY 08/07/19 10/24/21 History mg-hydrochlorothiazide 25 mg tablet gabapentin 300 mg capsule 300 mg PO TID cap 02/23/21 10/24/21 History levothyroxine 150 mcg tablet 150 mcg PO DAILY 02/23/21 10/24/21 History Aspirin [Aspirin 325mg Tab] 325 mg PO DAILY 42 Days #42 tab 04/25/21 10/24/21 Rx Allergies Allergy/AdvReac Type Severity Reaction Status Date / Time Sulfa (Sulfonamide Allergy Verified 10/24/21 09:59 Antibiotics) Exam Vital signs and Labs for Last 24 Hours: Temp Pulse Resp BP Pulse Ox 97.9 F 78 23 152/99 H 94 L 11/22/21 11:20 11/22/21 12:05 11/22/21 12:05 11/22/21 12:05 11/22/21 12:05 Laboratory Results - last 24 hr 11/22/21 11:15: WBC 8.8, RBC 4.86, Hgb 14.6, Hct 43.1, MCV 88.7, MCH 30.0, MCHC 33.8, RDW 16.0, Plt Count 425 H, MPV 6.9 L, Neut % (Auto) 77.0, Lymph % (Auto) 11.3, [place] % (Auto) 8.4, Eos % (Auto) 3.1, Baso % (Auto) 0.3, Neut # (Auto) 6.8, Lymph # (Auto) 1.0, [place] # (Auto) 0.7, Eos # (Auto) 0.3, Baso # (Auto) 0.0 11/22/21 11:15: Sodium 127 L, Potassium 3.8, Chloride 90 L, Carbon Dioxide 33 H, Anion Gap 7.8, BUN 14, Creatinine 1.10, Estimated Creat Clear 77, Estimated GFR 65, Est GFR ( Amer) 78, Glucose 95, Calcium 9.2, Troponin I < 0.01 I & O for Last 24 hours: Intake & Output 11/19/21 11/20/21 11/21/21 11/22/21 23:59 23:59 23:59 23:59 Weight 218 lb Narrative: EKG is sinus rhythm with a rate of 80, right bundle branch block and bifascicular block. EKG #2 shows sinus rhythm with a right bundle branch block and bifascicular block. CTA
--- NOTE | 2021-11-22 13:59 | PC.NURSE ---
carmen from [facility] called, states she will be down to do pts echol
--- NOTE | 2021-11-22 14:14 | PC.NURSE ---
[facility] at bedside
[2021-11-22 15:52] LABS: Troponin I < 0.01 ng/ml (0.00-0.034)
--- NOTE | 2021-11-22 16:12 | PC.NURSE ---
waiting on a call back from Dr. Rust
--- NOTE | 2021-11-22 16:15 | PC.NURSE ---
MIRIAM CARRANZA speaking with Dr. Rust
== END 2021-11-22 16:26 | disposition home or self-care (01) ==
PROVIDERS: Emergency Provider Student in an Organized Health Care Education/Training Program; PCP Internal Medicine Adolescent Medicine
DX: R07.9 Chest pain, unspecified (principal); I10 Essential (primary) hypertension; I48.0 Paroxysmal atrial fibrillation; Z87.891 Personal history of nicotine dependence
CPT/HCPCS: 36415; 71046; 71275; 80048; 84484; 85025; 93005; 93306; 99283; 99284; Q9967

== ENCOUNTER → 2022-03-27 12:44 | Outpatient (POV) | payer MEDICARE, OTHER, SELFPAY | PROVIDERS: Visit Provider Dermatology | DX: Z00.00 Encounter for general adult medical examination without abnormal findings (principal) ==

== ENCOUNTER 2022-07-15 17:56 | Emergency (ER) | payer MEDICARE, OTHER, SELFPAY ==
[2022-07-15 17:57] VITALS: BP 160/98; PULSE 83; RESP 18; TEMP 36.7; O2SAT 97; BMI 26.2
--- NOTE | 2022-07-15 18:05 | PC.NURSE ---
ED MD AT BEDSIDE TO EVALUATE PT
--- NOTE | 2022-07-15 18:09 | CT_ITS ---
PROCEDURE INFORMATION: Exam: CTA Chest With Contrast Exam date and time: 07/15/2022 7:16 PM Age: 76 years old Clinical indication: Pain; Left-sided; Prior surgery; Patient HX: Lung, thalmus, throat and bone cancer. ; Additional info: Chest pain, HX of malignancy TECHNIQUE: Imaging protocol: Computed tomographic angiography of the chest with contrast. 3D rendering (Not supervised by radiologist): MIP and/or 3D reconstructed images were created by the technologist. Radiation optimization: All CT scans at this facility use at least one of these dose optimization techniques: automated exposure control; mA and/or kV adjustment per patient size (includes targeted exams where dose is matched to clinical indication); or iterative reconstruction. Contrast material: ISOVUE; Contrast volume: 70 ml; Contrast route: INTRAVENOUS (IV); COMPARISON: CT ANGIO CHEST 11/22/2021 11:45 AM FINDINGS: Pulmonary arteries: No pulmonary emboli. Aorta: The aorta demonstrates moderate atherosclerotic disease. 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 Lungs: Patchy atelectasis. No consolidation. No masses. Pleural spaces: Right lower lobe mass with extension into the chest wall and pleura measures 8.2 x 5.8 cm image 64 series 11, previously 6.6 x 4.2 cm. Heart: Coronary artery calcifications. Cardiomegaly. Mitral and aortic valve calcifications. Mediastinal space: Compared to prior study, mixed interval response of anterior mediastinal masses. Example includes 3.2 cm in short axis left prevascular mass image 37 series 11, previously 4.6 cm. Right prevascular mass measures 2.2 cm in short axis image 40 series 11, previously 1.8 cm. Lymph nodes: Right paratracheal lymph node measures 2.3 cm in short axis, previously 1.6 cm. Gallbladder and bile ducts: Gallbladder is absent. Pancreas: Eido-mh-jdamadzq pancreatic atrophy. Bones/joints: Status post median sternotomy. Periosteal reaction and demineralization of portions of right 7th rib with mild interval progression. Age-indeterminate T12 superior endplate fracture. Soft tissues: Unremarkable. Other findings: Stigmata of old granulomatous disease. IMPRESSION: 1. No pulmonary emboli. 2. Right lower lobe mass with extension into the chest wall and pleura measures 8.2 x 5.8 cm image 64 series 11, previously 6.6 x 4.2 cm. 3. Right paratracheal lymph node measures 2.3 cm in short axis, previously 1.6 cm. 4. Mixed interval response of anterior mediastinal masses. 5. Periosteal reaction and demineralization of portions of right 7th rib with mild interval progression. This suggests tumor invasion. 6. Age-indeterminate T12 superior endplate fracture. Please correlate with point tenderness.
--- NOTE | 2022-07-15 18:09 | ECG_ITS ---
APPROVED REPORT Exam: Resting ECG HR:79 bpm ECG Measurements Heart Rate 79 AXES WY 204 P 38 QRSd 163 QRS -66 QT 444 T 11 QTc 479 Conclusion SINUS RHYTHM WITH OCCASIONAL VENTRICULAR PREMATURE COMPLEXES RIGHT BUNDLE BRANCH BLOCK [120+ ms QRS DURATION, UPRIGHT V1, 40+ ms S IN I/aVL/V4/V5/V6] LEFT ANTERIOR FASCICULAR BLOCK [QRS AXIS <= -45, QR IN I, RS IN II] LEFT VENTRICULAR HYPERTROPHY AND ST-T CHANGE [VOLTAGE CRITERIA PLUS ST/T ABNORMALITY] ABNORMAL ECG UNCONFIRMED REPORT Electronically signed by : Almas Rust MD 07/16/2022 18:00:12
[2022-07-15 18:55] LABS: Basophils # 0.1 K/mm3 (0-0.2); Basophils % 0.6 % (0.1-2.0); Eosinophils # 0.4 K/mm3 (0.0-0.4); Eosinophils % 5.3 % (0.1-12.0); Hematocrit 39.1 % (42.0-52.0); Hemoglobin 13.1 g/dL (14.1-18.0); Lymphocytes # 1.1 K/mm3 (0.7-4.5); Lymphocytes % 13.4 % (10-50); Mean Corpuscular HGB Conc 33.4 g/dL (31.8-35.4); Mean Corpuscular Hemoglobin 30.5 pg (27.0-31.2); Mean Corpuscular Volume 91.2 fl (80-94); Mean Platelet Volume 7.6 fl (7.4-10.4); Monocytes # 0.9 K/mm3 (0.1-1.0); Monocytes % 10.5 % (1.7-9.3); Neutrophils # 5.9 K/mm3 (1.8-7.8); Neutrophils % 70.2 % (37.0-80.0); Platelet Count 413 K/mm3 (142-424); Red Blood Count 4.29 M/mm3 (4.60-6.20); Red Cell Distribution Width 15.2 % (11.5-17.5); White Blood Count 8.4 K/mm3 (4.8-10.8)
[2022-07-15 18:58] LABS: Alanine Aminotransferase 15 U/L (12-78); Albumin Level 4.2 g/dl (3.5-5.0); Albumin/Globulin Ratio 1.2 (1.1-1.8); Alkaline Phosphatase 115 U/L (38-126); Anion Gap 13.1 mEq/L (5-15); Aspartate Amino Transferase 37 U/L (17-59); Bilirubin,Total 0.5 mg/dl (0.2-1.3); Blood Urea Nitrogen 14 mg/dl (9-20); Calcium 8.7 mg/dl (8.4-10.2); Carbon Dioxide 32 mmol/L (22.0-30.0); Chloride 89 mmol/L (98-107); Creatinine Clearance Estimated 76 mL/min (50-200); Estimated Glomerular Filt Rate 65 ml/min (>60); GFR (African American) 78 ML/MIN (>60); Globulin 3.5 g/dL (1.3-3.2); Glucose 120 mg/dl (74-100); Potassium 3.1 mmoL/L (3.5-5.1); Sodium 131 mmol/L (136-145); Total Protein,Serum 7.7 g/dl (6.3-8.2)
[2022-07-15 19:00] VITALS: BP 104/67; PULSE 76; O2SAT 93
--- NOTE | 2022-07-15 19:15 | PC.NURSE ---
PT TO CT AT THIS TIME
[2022-07-15 19:17] LABS: Troponin I < 0.01 ng/ml (0.00-0.034)
--- NOTE | 2022-07-15 19:35 | PC.NURSE ---
Pt returned to room from RAD
--- NOTE | 2022-07-15 19:36 | HMH.EDGENADL ---
Discharge Plan Disposition Chief Complaint: PAIN Prescriptions Prescriptions: No Action glabcxpxos-wmtcpyfeo-tvbbaaach 40-10-25 mg tablet 1 tab PO DAILY levothyroxine [Synthroid] 150 mcg tablet 150 mcg PO DAILY gabapentin 300 mg capsule 300 mg PO TID Label Comments: TAKE 1 CAPSULE BY MOUTH THREE TIMES DAILY carvedilol 25 tablet 25 mg PO BID aspirin 325 MG tablet 325 mg PO DAILY 42 Days Qty: 42 0RF Referrals Follow up/Referrals: Almas Rust MD [Primary Care Provider] - See instructions Discharge ED Provider: Toya Hawkins General Adult HPI General Chief complaint: PAIN Stated complaint: left upper side problems no acc Time Seen by Provider: 07/15/22 18:00 Mode of Arrival: Ambulatory Source of Information: Patient Limitations: No Limitations Description of Symptoms (Recalled from ER Triage Doc. by RN): PT REPORTS PAIN TO LEFT SIDE OF CHEST FOR 2 DAYS. PAIN INCREASES WITH INSPIRATION. HX OF BONE CANCER. History of Present Illness HPI narrative: Mr. Jefferson is a 76-year-old male past medical history for lung cancer with metastasis and known chest wall mass (not on chemo or radiation) presenting to the emergency department for progressively worsening left-sided lung cancer for 2 days. Patient also reports pleuritic chest pain worse with inspiration. Patient reports taking tramadol with no relief in symptoms. Denies any recent trauma to the chest. No new cough, fevers or other infectious symptoms. No ACS history. No blood thinners or history of blood clots. complaint: left sided chest pain Onset (ago): day(s) Location: chest Radiation: non-radiation Severity: severe Quality: aching Consistency: constant Relieving factors: none Exacerbating factors: none Associated symptoms: denies other symptoms Treatments prior to arrival: none Related Data Home Medications Medication Instructions Recorded Confirmed carvedilol 25 mg tablet 25 mg PO BID HYPERTENSION 08/04/18 10/24/21 olmesartan 40 mg-amlodipine 10 1 tab PO DAILY Hypertension 08/07/19 10/24/21 mg-hydrochlorothiazide 25 mg tablet gabapentin 300 mg capsule 300 mg PO TID Pain 02/23/21 10/24/21 levothyroxine 150 mcg tablet 150 mcg PO DAILY THYROID 02/23/21 10/24/21 (Synthroid) Previous Rx's Medication Instructions Recorded aspirin 325 mg tablet 325 mg PO DAILY 42 days #42 tabs 04/25/21 Allergies Allergy/AdvReac Type Severity Reaction Status Date / Time Sulfa (Sulfonamide Allergy Verified 10/24/21 09:59 Antibiotics) [facility] Social History Smoking Status: Former smoker pack-years: 20 alcohol intake: never substance use type: denies use current occupational status: retired Travel in the last 8 weeks: None household members: spouse housing: house current occupation: retired current occupational exposures/hazards: No ROS Obtained: Yes All systems reviewed & no additional complaints except as documented Physical Exam General General appearance: alert and in no apparent distress Head Head exam: atraumatic and normocephalic Eye Eye exam: Present normal appearance, PERRL and EOMI ENT ENT exam: Present normal exam and normal oropharynx Neck Neck exam: Present normal inspection and full ROM Chest Chest inspection: Present normal inspection, symmetric chest wall rise and tenderness (Left chest wall) Respiratory Respiratory exam: Present normal lung sounds bilaterally Cardiovascular Cardiovascular exam: Present regular rate and normal rhythm Abdominal Exam Abdominal exam: Present soft and normal bowel sounds Extremities Exam Extremities exam: Present normal inspection and full ROM Back Exam Back exam: Present normal inspection and full ROM Neurological Exam Neurological exam: Present alert and oriented X3 Medical Decision Making Medical Records Medical records reviewed: Yes I reviewed the patient's medical records. Zachary
[2022-07-15 19:47] VITALS: BP 128/82; PULSE 75; O2SAT 96
--- NOTE | 2022-07-15 19:51 | PC.NURSE ---
Updated pt/family on expected wait times. No needs voiced.
--- NOTE | 2022-07-15 20:35 | HMH.EDGENADL ---
Discharge Plan Disposition Patient Disposition: Home, Self-Care Prescriptions Prescriptions: No Action xwzajacrpd-kewlphtao-qljhzhjgk 40-10-25 mg tablet 1 tab PO DAILY levothyroxine [Synthroid] 150 mcg tablet 150 mcg PO DAILY gabapentin 300 mg capsule 300 mg PO TID Label Comments: TAKE 1 CAPSULE BY MOUTH THREE TIMES DAILY carvedilol 25 tablet 25 mg PO BID aspirin 325 MG tablet 325 mg PO DAILY 42 Days Qty: 42 0RF Referrals Follow up/Referrals: Almas Rust MD [Primary Care Provider] - See instructions Activity Restrictions/Add. Instructions Additional Instructions/Restrictions: Clinical Impressions Clinical Impression: Pain Instructions Patient Instructions: DI for Cancer Pain Syndromes Discharge ED Provider: Toya Hawkins Adult HPI General Chief complaint: PAIN Stated complaint: left upper side problems no acc Time Seen by Provider: 07/15/22 18:00 Mode of Arrival: Ambulatory Source of Information: Patient Limitations: No Limitations Description of Symptoms (Recalled from ER Triage Doc. by RN): PT REPORTS PAIN TO LEFT SIDE OF CHEST FOR 2 DAYS. PAIN INCREASES WITH INSPIRATION. HX OF BONE CANCER. History of Present Illness HPI narrative: lt sided chest pain with hx of bone cancer Onset (ago): day(s) Location: chest Severity: severe Quality: aching Relieving factors: none Exacerbating factors: none Associated symptoms: denies other symptoms Treatments prior to arrival: none Related Data Home Medications Medication Instructions Recorded Confirmed carvedilol 25 mg tablet 25 mg PO BID HYPERTENSION 08/04/18 10/24/21 olmesartan 40 mg-amlodipine 10 1 tab PO DAILY Hypertension 08/07/19 10/24/21 mg-hydrochlorothiazide 25 mg tablet gabapentin 300 mg capsule 300 mg PO TID Pain 02/23/21 10/24/21 levothyroxine 150 mcg tablet 150 mcg PO DAILY THYROID 02/23/21 10/24/21 (Synthroid) Previous Rx's Medication Instructions Recorded aspirin 325 mg tablet 325 mg PO DAILY 42 days #42 tabs 04/25/21 Allergies Allergy/AdvReac Type Severity Reaction Status Date / Time Sulfa (Sulfonamide Allergy Verified 10/24/21 09:59 Antibiotics) [facility] Social History Smoking Status: Former smoker pack-years: 20 alcohol intake: never substance use type: denies use current occupational status: retired Travel in the last 8 weeks: None household members: spouse housing: house current occupation: retired current occupational exposures/hazards: No ROS Obtained: Yes All systems reviewed & no additional complaints except as documented Physical Exam General General appearance: alert and in no apparent distress Head Head exam: normocephalic Eye Eye exam: Present EOMI ENT ENT exam: Present mucous membranes dry Neck Neck exam: Present trachea midline Respiratory Respiratory exam: Absent respiratory distress Cardiovascular Cardiovascular exam: Present regular rate and systolic murmur Abdominal Exam Abdominal exam: Present soft Extremities Exam Extremities exam: Absent joint swelling Neurological Exam Neurological exam: Present alert Skin Skin exam: Absent rash Medical Decision Making Medical Records Medical records reviewed: Yes I reviewed the patient's medical records. Vinny Inquiry Pt receiving controlled substance: No Vital Signs: 07/15/22 17:57 07/15/22 19:00 07/15/22 19:47 Temperature 98.0 F Temperature Source Oral Pulse Rate 76 75 Pulse Rate [Radial] 83 Respiratory Rate 18 Blood Pressure 104/67 L 128/82 Blood Pressure [Right Arm] 160/98 H Blood Pressure Mean [Right Arm] 118 Blood Pressure Source [Right Arm] Automatic Cuff Blood Pressure Position [Right Arm] Sitting 02 Sat by Pulse Oximetry 97 93 L 96 Oxygen Delivery Method Room Air Room Air Room Air 07/15/22 21:03 07/15/22 21:05 Temperature 98.0 F Temperature Source Pulse Rate 80 P
[2022-07-15 21:03] VITALS: BP 135/80; PULSE 80; RESP 18; TEMP 36.7; O2SAT 98
== END 2022-07-15 21:05 | disposition home or self-care (01) ==
PROVIDERS: Emergency Provider Student in an Organized Health Care Education/Training Program; PCP Internal Medicine Adolescent Medicine
DX: R52 Pain, unspecified (principal); Z85.830 Personal history of malignant neoplasm of bone; I48.91 Unspecified atrial fibrillation; I10 Essential (primary) hypertension; I45.2 Bifascicular block
CPT/HCPCS: 71275; 80053; 84484; 85025; 93005; 99284; Q9967

== ENCOUNTER → 2022-11-07 13:18 | Outpatient (CLI) | payer MEDICARE, OTHER, SELFPAY ==
--- NOTE | 2022-11-07 13:18 | US_ITS ---
FINAL REPORT CLINICAL HISTORY: DECREASED PEDAL PULSES,EX SMOKER,HTN FINDINGS: ANKLE-BRACHIAL PRESSURE INDICES Pressure indices are as follows: RIGHT LOWER EXTREMITY: Ankle-brachial pressure index: 1.3 Comments: Normal LEFT LOWER EXTREMITY: Ankle-brachial pressure index: 1.1 Comments: Normal CONCLUSION: No evidence of significant obstructive peripheral vascular disease of the lower extremities Reviewed, Interpreted and Dictated by Eliezer Mccollum III, MD Transcribed by Dena Wilburn Authenticated and [facility]
== END ==
PROVIDERS: PCP Internal Medicine Adolescent Medicine; Visit Provider Nurse Practitioner Family
DX: R09.89 Other specified symptoms and signs involving the circulatory and respiratory systems (principal)
CPT/HCPCS: 93923

== ENCOUNTER → 2022-12-26 12:23 | Outpatient (CLI) | payer MEDICARE, OTHER, SELFPAY ==
--- NOTE | 2022-12-26 12:31 | XR_ITS ---
FINAL REPORT TECHNIQUE: Chest PA & Lateral CLINICAL HISTORY: HYPOXEMIA,MALIGNANT OF BRONCHUS OR LUNG COMPARISON: CT dated 07/15/2022 FINDINGS: 2 views of the chest were performed. Sternotomy wires are present. There is mild cardiomegaly. There is an unfolded aorta. There is patchy airspace opacity in the right mid lung and right lower lobe. On the lateral view, there appears to be a posterior pleural based mass measuring up to 5.5 cm. The left lung is clear. There is abnormal soft tissue in the retrosternal clear space which is concerning for anterior mediastinal adenopathy. The bony thorax appears intact. IMPRESSION: Airspace infiltrate in the right mid lung and right lower lobe which may be related to pneumonia or edema. Posterior pleural based mass corresponding to the known CT abnormality, highly concerning for neoplasia. Follow-up recommended. Abnormal soft tissue in the retrosternal clear space concerning 4 anterior mediastinal adenopathy. Reviewed, Interpreted and Dictated by Zeyad Og MD Transcribed by Dena Wilburn Authenticated and [facility]
[2022-12-26 13:04] LABS: Basophils % 0.3 % (0.1-2.0); Eosinophils # 0.3 K/mm3 (0.0-0.4); Eosinophils % 2.2 % (0.1-12.0); Hematocrit 42.3 % (42.0-52.0); Hemoglobin 13.7 g/dL (14.1-18.0); Lymphocytes # 0.7 K/mm3 (0.7-4.5); Lymphocytes % 5.3 % (10-50); Mean Corpuscular HGB Conc 32.5 g/dL (31.8-35.4); Mean Corpuscular Hemoglobin 30.3 pg (27.0-31.2); Mean Corpuscular Volume 93.2 fl (80-94); Mean Platelet Volume 8.1 fl (7.4-10.4); Monocytes # 0.6 K/mm3 (0.1-1.0); Monocytes % 4.8 % (1.7-9.3); Neutrophils # 11.3 K/mm3 (1.8-7.8); Neutrophils % 87.4 % (37.0-80.0); Platelet Count 619 K/mm3 (142-424); Red Blood Count 4.53 M/mm3 (4.60-6.20); Red Cell Distribution Width 15.8 % (11.5-17.5)
[2022-12-26 13:18] LABS: MANUAL DIFFERENTIAL MANUAL DIFFERENTIAL (MANUAL DIFF)
[2022-12-26 13:41] LABS: Eosinophils % 2 % (0-3); Lymphocytes % 5 % (10-50); Monocytes % 5 % (2-9); Neutrophils % 88 % (42-76); Platelet Estimate Moderate Increase; Total Cells Counted 100
[2022-12-26 13:42] LABS: RBC Morphology Normal
[2022-12-26 14:40] LABS: Anion Gap 15.5 mEq/L (5-15); Blood Urea Nitrogen 18 mg/dl (9-20); Calcium 8.8 mg/dl (8.4-10.2); Carbon Dioxide 28 mmol/L (22.0-30.0); Chloride 87 mmol/L (98-107); Estimated Glomerular Filt Rate 81 ml/min (>60); GFR (African American) 98 ML/MIN (>60); Glucose 93 mg/dl (74-100); Potassium 4.5 mmoL/L (3.5-5.1); Sodium 126 mmol/L (136-145)
== END ==
PROVIDERS: PCP Internal Medicine Adolescent Medicine; Visit Provider Internal Medicine Adolescent Medicine
DX: C34.90 Malignant neoplasm of unspecified part of unspecified bronchus or lung (principal); R09.02 Hypoxemia
CPT/HCPCS: 36415; 71046; 80048; 85007; 85025

== ENCOUNTER → 2023-08-13 08:47 | Outpatient (POV) | payer MEDICARE, OTHER, SELFPAY | PROVIDERS: Visit Provider Specialist/Technologist | DX: Z00.00 Encounter for general adult medical examination without abnormal findings (principal) ==

== ENCOUNTER 2023-10-22 13:20 | Outpatient (CLI) | payer OTHER, MEDICARE, SELFPAY ==
--- NOTE | 2023-10-22 13:28 | XR_ITS ---
FINAL REPORT CLINICAL HISTORY: MALIGNANT NEOPLASM UNSP. BRONCHUS OR LUING. SOB pt states he has had lung cancer for many years. COMPARISON: 12/26/2022 FINDINGS: TWO-VIEW CHEST The heart size is normal. The patient is status post median sternotomy. There has an elevated right hemidiaphragm. There are persistent but improved right lung opacities. There is no pneumothorax. IMPRESSION: Persistent but improved right lung opacities. Reviewed, Interpreted and Dictated by Eliezer Mccollum III, MD Transcribed by Nicole Lord Authenticated and [facility]
[2023-10-22 14:20] LABS: Basophils % 0.1 % (0.1-2.0); Eosinophils # 0.3 K/mm3 (0.0-0.4); Eosinophils % 2.2 % (0.1-12.0); Hematocrit 43.9 % (42.0-52.0); Hemoglobin 14.2 g/dL (14.1-18.0); Lymphocytes # 1.3 K/mm3 (0.7-4.5); Lymphocytes % 9.8 % (10-50); Mean Corpuscular HGB Conc 32.3 g/dL (31.8-35.4); Mean Corpuscular Hemoglobin 30.3 pg (27.0-31.2); Mean Corpuscular Volume 93.8 fl (80-94); Mean Platelet Volume 7.1 fl (7.4-10.4); Monocytes # 0.9 K/mm3 (0.1-1.0); Monocytes % 7.1 % (1.7-9.3); Neutrophils # 10.5 K/mm3 (1.8-7.8); Neutrophils % 80.7 % (37.0-80.0); Platelet Count 303 K/mm3 (142-424); Red Blood Count 4.69 M/mm3 (4.60-6.20); Red Cell Distribution Width 15.7 % (11.5-17.5); White Blood Count 12.9 K/mm3 (4.8-10.8)
[2023-10-22 14:37] LABS: Chloride 85 mmol/L (98-107); Sodium 130 mmol/L (136-145)
[2023-10-22 14:38] LABS: Potassium 3.7 mmoL/L (3.5-5.1)
[2023-10-22 14:40] LABS: Blood Urea Nitrogen 14 mg/dl (9-20); Estimated Glomerular Filt Rate 81 ml/min (>60); GFR (African American) 98 ML/MIN (>60)
[2023-10-22 14:41] LABS: Anion Gap 13.7 mEq/L (5-15); Calcium 8.9 mg/dl (8.4-10.2); Carbon Dioxide 35 mmol/L (22.0-30.0); Glucose 106 mg/dl (74-100)
== END 2023-10-22 23:59 ==
PROVIDERS: PCP Internal Medicine Adolescent Medicine; Visit Provider Nurse Practitioner Family
DX: C34.90 Malignant neoplasm of unspecified part of unspecified bronchus or lung (principal); R06.02 Shortness of breath
CPT/HCPCS: 36415; 71046; 80048; 85025

== ENCOUNTER 2024-03-10 12:22 | Outpatient (CLI) | payer OTHER, MEDICARE, SELFPAY ==
[2024-03-10 12:43] LABS: Chloride 82 mmol/L (98-107); Sodium 127 mmol/L (136-145)
[2024-03-10 12:46] LABS: Blood Urea Nitrogen 18 mg/dl (9-20); Estimated Glomerular Filt Rate 93 ml/min (>60); GFR (African American) 113 ML/MIN (>60)
[2024-03-10 12:47] LABS: Anion Gap 10.9 mEq/L (5-15); Basophils % 0.3 % (0.1-2.0); Calcium 9.6 mg/dl (8.4-10.2); Carbon Dioxide 37 mmol/L (22.0-30.0); Eosinophils # 0.2 K/mm3 (0.0-0.4); Eosinophils % 1.5 % (0.1-12.0); Glucose 83 mg/dl (74-100); Hematocrit 41.4 % (42.0-52.0); Hemoglobin 13.9 g/dL (14.1-18.0); Lymphocytes # 0.9 K/mm3 (0.7-4.5); Lymphocytes % 7.4 % (10-50); Mean Corpuscular HGB Conc 33.5 g/dL (31.8-35.4); Mean Corpuscular Hemoglobin 32.5 pg (27.0-31.2); Mean Platelet Volume 7.9 fl (7.4-10.4); Monocytes % 8.2 % (1.7-9.3); Neutrophils # 9.7 K/mm3 (1.8-7.8); Neutrophils % 82.6 % (37.0-80.0); Platelet Count 279 K/mm3 (142-424); Red Blood Count 4.27 M/mm3 (4.60-6.20); Red Cell Distribution Width 15.9 % (11.5-17.5); White Blood Count 11.8 K/mm3 (4.8-10.8)
[2024-03-10 13:08] LABS: Potassium 2.9 mmoL/L (3.5-5.1)
== END 2024-03-10 23:59 | disposition home or self-care (01) ==
LOC: LAB.DROPOF 12:25
PROVIDERS: PCP Internal Medicine Adolescent Medicine; Visit Provider Internal Medicine Adolescent Medicine
DX: C37 Malignant neoplasm of thymus (principal)
CPT/HCPCS: 80048; 85025

== ENCOUNTER → 2024-03-13 11:05 | Outpatient (REF) | payer OTHER, SELFPAY ==
[2024-03-13 11:28] LABS: Basophils # 0.1 K/mm3 (0-0.2); Basophils % 0.5 % (0.1-2.0); Eosinophils # 0.1 K/mm3 (0.0-0.4); Eosinophils % 0.9 % (0.1-12.0); Hematocrit 40.5 % (42.0-52.0); Hemoglobin 13.3 g/dL (14.1-18.0); Lymphocytes # 0.8 K/mm3 (0.7-4.5); Lymphocytes % 9.1 % (10-50); Mean Corpuscular HGB Conc 32.8 g/dL (31.8-35.4); Mean Corpuscular Hemoglobin 32.8 pg (27.0-31.2); Mean Corpuscular Volume 100.1 fl (80-94); Mean Platelet Volume 8.4 fl (7.4-10.4); Monocytes # 0.7 K/mm3 (0.1-1.0); Monocytes % 7.4 % (1.7-9.3); Neutrophils # 7.5 K/mm3 (1.8-7.8); Platelet Count 267 K/mm3 (142-424); Red Blood Count 4.04 M/mm3 (4.60-6.20); White Blood Count 9.1 K/mm3 (4.8-10.8)
[2024-03-13 13:14] LABS: Anion Gap 10.7 mEq/L (5-15); Blood Urea Nitrogen 21 mg/dl (9-20); Calcium 9.1 mg/dl (8.4-10.2); Carbon Dioxide 38 mmol/L (22.0-30.0); Chloride 81 mmol/L (98-107); Estimated Glomerular Filt Rate 64 ml/min (>60); GFR (African American) 78 ML/MIN (>60); Glucose 81 mg/dl (74-100); Potassium 3.7 mmoL/L (3.5-5.1); Sodium 126 mmol/L (136-145)
== END ==
LOC: LAB.DROPOF 11:05
PROVIDERS: Visit Provider Internal Medicine Adolescent Medicine
DX: C37 Malignant neoplasm of thymus (principal)
CPT/HCPCS: 80048; 85025

== ENCOUNTER 2024-03-17 12:51 | Outpatient (CLI) | payer OTHER, SELFPAY ==
[2024-03-17 14:02] LABS: Basophils % 0.5 % (0.1-2.0); Eosinophils # 0.2 K/mm3 (0.0-0.4); Eosinophils % 1.9 % (0.1-12.0); Lymphocytes % 12.9 % (10-50); Mean Corpuscular HGB Conc 32.6 g/dL (31.8-35.4); Mean Corpuscular Hemoglobin 32.2 pg (27.0-31.2); Mean Corpuscular Volume 98.8 fl (80-94); Mean Platelet Volume 8.2 fl (7.4-10.4); Monocytes # 0.5 K/mm3 (0.1-1.0); Monocytes % 6.6 % (1.7-9.3); Neutrophils # 6.3 K/mm3 (1.8-7.8); Platelet Count 240 K/mm3 (142-424); Red Blood Count 4.05 M/mm3 (4.60-6.20); Red Cell Distribution Width 15.8 % (11.5-17.5)
[2024-03-17 14:46] LABS: Anion Gap 11.7 mEq/L (5-15); Blood Urea Nitrogen 18 mg/dl (9-20); Calcium 9.2 mg/dl (8.4-10.2); Carbon Dioxide 37 mmol/L (22.0-30.0); Chloride 84 mmol/L (98-107); Estimated Glomerular Filt Rate 72 ml/min (>60); GFR (African American) 87 ML/MIN (>60); Glucose 84 mg/dl (74-100); Potassium 3.7 mmoL/L (3.5-5.1); Sodium 129 mmol/L (136-145)
== END 2024-03-17 23:59 | disposition home or self-care (01) ==
LOC: LAB.DROPOF 12:51
PROVIDERS: PCP Internal Medicine Adolescent Medicine; Visit Provider Internal Medicine Adolescent Medicine
DX: C37 Malignant neoplasm of thymus (principal)
CPT/HCPCS: 80048; 85025

== ENCOUNTER 2024-04-21 15:51 | Outpatient (CLI) | payer OTHER, SELFPAY ==
[2024-04-21 16:59] LABS: Alanine Aminotransferase 14 U/L (12-78); Albumin Level 3.6 g/dl (3.5-5.0); Albumin/Globulin Ratio 1.6 (1.1-1.8); Alkaline Phosphatase 82 U/L (38-126); Anion Gap 8.6 mEq/L (5-15); Aspartate Amino Transferase 26 U/L (17-59); Bilirubin,Total 0.6 mg/dl (0.2-1.3); Blood Urea Nitrogen 18 mg/dl (9-20); Calcium 8.9 mg/dl (8.4-10.2); Carbon Dioxide 37 mmol/L (22.0-30.0); Chloride 84 mmol/L (98-107); Estimated Glomerular Filt Rate 109 ml/min (>60); GFR (African American) 131 ML/MIN (>60); Globulin 2.3 g/dL (1.3-3.2); Glucose 100 mg/dl (74-100); Potassium 3.6 mmoL/L (3.5-5.1); Sodium 126 mmol/L (136-145); Total Protein,Serum 5.9 g/dl (6.3-8.2)
== END 2024-04-21 23:59 | disposition home or self-care (01) ==
LOC: LAB.DROPOF 15:52
PROVIDERS: PCP Nurse Practitioner Family; Visit Provider Nurse Practitioner Family
DX: C37 Malignant neoplasm of thymus (principal)
CPT/HCPCS: 80053

== ENCOUNTER 2024-06-23 11:52 | Outpatient (CLI) | payer OTHER, SELFPAY ==
[2024-06-23 12:46] LABS: Alanine Aminotransferase 17 U/L (12-78); Alkaline Phosphatase 65 U/L (38-126); Aspartate Amino Transferase 30 U/L (17-59); Bilirubin,Total 0.8 mg/dl (0.2-1.3); Blood Urea Nitrogen 29 mg/dl (9-20); Calcium 9.3 mg/dl (8.4-10.2); Chloride 86 mmol/L (98-107); Estimated Glomerular Filt Rate 93 ml/min (>60); GFR (African American) 113 ML/MIN (>60); Glucose 88 mg/dl (74-100); Sodium 127 mmol/L (136-145); Total Protein,Serum 6.2 g/dl (6.3-8.2)
[2024-06-23 12:47] LABS: Albumin Level 4.1 g/dl (3.5-5.0); Anion Gap 7.7 mEq/L (5-15); Carbon Dioxide 37 mmol/L (22.0-30.0); Globulin 2.1 g/dL (1.3-3.2); Potassium 3.7 mmoL/L (3.5-5.1)
== END 2024-06-23 23:59 | disposition home or self-care (01) ==
LOC: LAB.DROPOF 11:52
PROVIDERS: PCP Internal Medicine Adolescent Medicine; Visit Provider Internal Medicine Adolescent Medicine
DX: E87.0 Hyperosmolality and hypernatremia (principal); E87.6 Hypokalemia
CPT/HCPCS: 36415; 80053

== ENCOUNTER 2024-11-01 14:37 | Emergency (ER) | payer OTHER, SELFPAY ==
[2024-11-01] VITALS (9 sets, daily range): BP systolic 96–133; BP diastolic 67–92; PULSE 85–94; RESP 16–20; TEMP 36.7–36.8; O2SAT 93–98; BMI 26.4
--- NOTE | 2024-11-01 14:43 | PC.NURSE ---
BS is [phone] @[id number].
--- NOTE | 2024-11-01 14:44 | ECG_ITS ---
APPROVED REPORT Exam: Resting ECG HR:93 bpm ECG Measurements Heart Rate 93 AXES QRSd 138 QRS -46 QT 403 T 67 QTc 454 Conclusion UNCERTAIN REGULAR RHYTHM RIGHT BUNDLE BRANCH BLOCK [120+ ms QRS DURATION, UPRIGHT V1, 40+ ms S IN I/aVL/V4/V5/V6] LEFT ANTERIOR FASCICULAR BLOCK [QRS AXIS <= -45, QR IN I, RS IN II] ABNORMAL ECG Sinus rhythm right bundle branch block Electronically signed by : GEN GONZALEZ, 11/02/2024 22:08:08
--- NOTE | 2024-11-01 14:44 | PC.NURSE ---
dr gaines at bedside
--- NOTE | 2024-11-01 14:48 | XR_ITS ---
PROCEDURE INFORMATION: Exam: XR Chest Exam date and time: 11/01/2024 2:54 PM Age: 79 years old Clinical indication: Other: Near syncope TECHNIQUE: Imaging protocol: Radiologic exam of the chest. Views: 1 view. COMPARISON: CR XR CHEST 2V 10/22/2023 1:49 PM FINDINGS: Lungs: There is elevation the right hemidiaphragm that has progressed from previous exam with ill-defined masslike opacity projecting over the elevated hemidiaphragm difficult to further assess on this chest x-ray.. There is a prominent bandlike consolidative opacity right midlung zone progressed from previous exam likely secondary to subsegmental atelectasis. Left lung field remains relatively clear. Pleural spaces: Unremarkable. No pleural effusion. No pneumothorax. Heart/Mediastinum: Heart is mildly enlarged, unchanged. Thoracic aorta is tortuous and ectatic unchanged. Bones/joints: Prior median sternotomy.. No acute bony abnormalities detected. IMPRESSION: 1. Findings concerning for right lung base mass obscured by elevated right hemidiaphragm which could be better assessed on CT exam of the chest. 2. Progressive bandlike area of atelectasis right midlung zone that closely reassessed on CT exam of the chest.
[2024-11-01 14:50] LABS: Lactate Venous 2.5 mmol/L (0.4-2.0); VBG Base Excess 5.5 mmol/L (-2.4-2.3); VBG HCO3 31.2 mmol/L (23-30); VBG Oxygen Saturation 71.2 % (50-70); VBG PCO2 58.4 mmol/L (35-51); VBG PH 7.35 mmol/L (7.31-7.41); VBG PO2 41.9 mmol/L (28-40); VBG Total CO2 32.9 mmol/L (23-27)
--- NOTE | 2024-11-01 14:53 | PC.NURSE ---
XR AT BEDSIDE
--- NOTE | 2024-11-01 14:56 | ED_ITS ---
Discharge Plan Disposition Patient Disposition: Hospice - Home Condition: Good Prescriptions Prescriptions: New amoxicillin-pot clavulanate 875-125 mg tablet 1 tab PO BID 7 Days Qty: 14 0RF doxycycline hyclate 100 mg capsule 100 mg PO BID 7 Days Qty: 14 0RF No Action vbdgzkjqep-nnieumuja-moxkotvvf 40-10-25 mg tablet 1 tab PO DAILY levothyroxine [Synthroid] 150 mcg tablet 150 mcg PO DAILY lidocaine (PF) 20 mg/mL (2 %) solution 190 mg peripheral nerve block ONCE Qty: 9.5 0RF oxycodone-acetaminophen 10-325 mg tablet 1 tab PO Q8H PRN zolpidem [Ambien] 5 mg tablet 5 mg PO HS azelastine 137 mcg (0.1 %) aerosol,spray 2 spray intranasal BID Qty: 30 3RF Rx Instructions: administer into each nostril levocetirizine [Xyzal] 5 mg tablet 5 mg PO DAILY Qty: 90 3RF omeprazole 40 mg capsule,delayed release(DR/EC) 40 mg PO DAILY aspirin 81 mg tablet,delayed release (DR/EC) 81 mg PO DAILY bisoprolol fumarate 10 mg tablet 20 mg PO DAILY lorazepam 0.5 mg tablet 0.5 mg PO BID PRN furosemide 20 mg tablet 20 mg PO DAILY PRN Lactobacillus acidoph-L.bulgar [Floranex] 1 million cell tablet 1 tab PO DAILY Referrals Follow up/Referrals: Almas Rust MD [Primary Care Provider] - See instructions Activity Restrictions/Add. Instructions Additional Instructions/Restrictions: As we discussed, it appears there could be a pneumonia in your right lung, I have prescribed a course of antibiotics and notified your hospice team. Please return with any new or worsening symptoms. Clinical Impressions Clinical Impression: Pneumonia, Syncope Print Language Print Language: [place] Discharge ED Provider: Dino Shultz General Adult HPI <Derrek Hope MD - Last Filed: 11/01/24 15:10> General Chief complaint: Syncope Stated complaint: shortness of breath Time Seen by Provider: 11/01/24 14:48 Mode of Arrival: EMS Source of Information: Patient Limitations: No Limitations Description of Symptoms (Recalled from ER Triage Doc. by RN): Patient reports almost passing out and being short of breath. History of Present Illness HPI narrative: Please note that above description of symptoms, in this electronic medical record under categorization of recalled from ER triage doctor by RN are reflective of an initial nursing assessment, however, is not reflective of my full history and physical exam that was personally taken and clarified. Consequentially, this preceding description of symptoms, which may include the patient's categorized chief complaint in the EMR, do not reflect my personal clinical impression, and the ultimate description of history of present illness and patient stated complaints should be deferred to this section of the note. Unless stated otherwise or congruent with this section of the note, additional signs, symptoms, or incongruence should be interpreted as inaccurate with my clinical impression. Related Data Home Medications ?Medication ?Instructions ?Recorded ?Confirmed olmesartan 40 mg-amlodipine 10 1 tab PO DAILY Hypertension 08/07/19 08/13/23 mg-hydrochlorothiazide 25 mg tablet levothyroxine 150 mcg tablet 150 mcg PO DAILY THYROID 02/23/21 08/13/23 (Synthroid) Lactobacillus acidoph-L.bulgaricus 1 tab PO DAILY 05/22/23 08/13/23 1 million cell tablet (Floranex) aspirin 81 mg tablet,delayed 81 mg PO DAILY 05/22/23 08/13/23 release bisoprolol fumarate 10 mg tablet 20 mg PO DAILY 05/22/23 08/13/23 furosemide 20 mg tablet 20 mg PO DAILY PRN 05/22/23 08/13/23 lorazepam 0.5 mg tablet 0.5 mg PO BID PRN 05/22/23 08/13/23 omeprazole 40 mg capsule,delayed 40 mg PO DAILY 05/22/23 08/13/23 release oxycodone-acetaminophen 10 mg-325 1 tab PO Q8H PRN 07/08/23 08/13/23 mg tablet zolpidem 5 mg tablet (Ambien) 5 mg PO HS 08/13/23 08/13/23 Previous Rx's ?Medication ?Instructions ?Recorded azelastine 137 mcg (0.1 %) nasal 2 spray intranasal BID allergy 08/13/23 spray symptoms #30 mL levocetirizine 5 mg tablet (Xyzal) 5 mg PO DAILY allergy symptoms #90 08/13/23 tabs amoxicillin 875 mg-potassium 1 tab PO BID 7 days #14 tabs 11/01/24 clavulanate 125 mg tablet doxycycline hyclate 100 mg capsule 100 mg PO BID 7 days #14 caps 11/01/24 Allergies Allergy/AdvReac Type Severity Reaction Status Date / Time Sulfa (Sulfonamide Allergy Verified 08/22/23 09:54 Antibiotics) [facility] <Derrek Hope MD - Last Filed: 11/01/24 15:10> [facility] Disclaimer: The information contained in this section may have been updated after the patient was seen, as this information can be updated by other users. 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 Surgical History H/O hernia repair H/O spinal fusion History of left hip replacement Hx of cholecystectomy Family History Other No significant family history Social History Smoking Status: Unknown if ever smoked alcohol intake: never substance use type: denies use current occupational status: retired Travel in the last 8 weeks: None household members: spouse housing: house current occupation: retired current occupational exposures/hazards: No Have you lived/traveled outside [place] in past 30 days?: No Contact w/someone who lives/traveled outside US past 30 days?: No Exposure to someone with infectious disease in past 14 days?: No Do you have a fever (greater than 100.4 F or 38 C)?: No Have you tested positive for COVID-19: No Exposed to someone with COVID-19 in past 14 days?: No Do you have a sore throat?: No Do you have a cough?: No Do you have any weakness?: Yes Do you have any diarrhea?: No Are you experiencing any unusual bleeding?: No Do you have any muscle aches/pain?: No Do you have any abdominal pain?: No Are you experiencing loss of taste or smell?: No Other Medical History Have you received the Flu Vaccine for this season: Yes Have you received the Pneumonia Vaccine: Yes <Derrek Hope MD - Last Filed: 11/01/24 15:10> CAMRYN Obtained: Yes All systems reviewed & no additional complaints except as documented Physical Exam <Derrek Hope MD - Last Filed: 11/01/24 15:10> General General appearance: alert and in no apparent distress Head Head exam: atraumatic and normocephalic Eye Eye exam: Present normal appearance, PERRL and EOMI Neck Neck exam: Present normal inspection, full ROM and trachea midline Respiratory Respiratory exam: Present normal lung sounds bilaterally and other (Speaking in full sentences); Absent respiratory distress, wheezes, stridor, accessory muscle use or prolonged expiratory phase Cardiovascular Cardiovascular exam: Present other (Pulses equal symmetric in upper and lower extremities) Abdominal Exam Abdominal exam: Present soft; Absent distention, tenderness or pulsatile mass Extremities Exam Extremities exam: Absent edema Neurological Exam Neurological exam: Present alert, oriented X3 and CN II-XII intact; Absent motor sensory deficit Skin Skin exam: Present warm and dry; Absent diaphoresis or erythema Medical Decision Making <Derrek Hope MD - Last Filed: 11/01/24 15:10> Medical Records Medical records reviewed: Yes I reviewed the patient's medical records. Screening: Per USPSTF and CDC recommendations, given the prevalence of disease in our region, it is our hospital?s policy to screen for HIV and viral Hepatitis for all patients aged 18 and over and those with ongoing risk factors. Vinny Inquiry Pt receiving controlled substance: No Vinny was queried for this patient: No Vital Signs: 11/01/24 14:37 11/01/24 15:00 11/01/24 15:30 Temperature 98.2 F Temperature Source Oral Pulse Rate 92 H 94 H Pulse Rate [Radial] 93 H Respiratory Rate 20 Blood Pressure 96/67 L 96/76 L Blood Pressure [Right Arm] 133/90 Blood Pressure Mean Blood Pressure Mean [Right Arm] 104 Blood Pressure Source Blood Pressure Source [Right Arm] Automatic Cuff Blood Pressure Position Blood Pressure Position [Right Arm] Sitting 02 Sat by Pulse Oximetry 93 L 95 96 Oxygen Delivery Method Nasal Cannula Nasal Cannula Nasal Cannula Oxygen Flow Rate (LPM) 3 3 3 11/01/24 16:00 11/01/24 16:30 11/01/24 17:00 Temperature Temperature Source Pulse Rate 92 H 89 Pulse Rate [Radial] Respiratory Rate Blood Pressure 103/74 L 112/81 116/84 Blood Pressure [Right Arm] Blood Pressure Mean 83 Blood Pressure Mean [Right Arm] Blood Pressure Source Blood Pressure Source [Right Arm] Blood Pressure Position Blood Pressure Position [Right Arm] 02 Sat by Pulse Oximetry 96 98 Oxygen Delivery Method Nasal Cannula Room Air Nasal Cannula Oxygen Flow Rate (LPM) 3 3 3 11/01/24 17:30 11/01/24 18:00 11/01/24 18:30 Temperature 98.0 F Temperature Source Oral Pulse Rate 90 85 86 Pulse Rate [Radial] Respiratory Rate 16 Blood Pressure 96/77 L 117/92 H 117/92 H Blood Pressure [Right Arm] Blood Pressure Mean Blood Pressure Mean [Right Arm] Blood Pressure Source Automatic Cuff Blood Pressure Source [Right Arm] Blood Pressure Position Sitting Blood Pressure Position [Right Arm] 02 Sat by Pulse Oximetry 98 97 Oxygen Delivery Method Nasal Cannula Nasal Cannula Nasal Cannula Oxygen Flow Rate (LPM) 3 3 3 Lab Data Lab Results 11/01/24 14:35: WBC 13.9 H, RBC 3.78 L, Hgb 12.4 L, Hct 37.7 L, MCV 99.7 H, MCH 32.8 H, MCHC 32.9, RDW 14.3, Plt Count 271, MPV 9.4, Neut % (Auto) 87.1 H, Lymph % (Auto) 6.1 L, Day % (Auto) 4.3, Eos % (Auto) 0.1, Baso % (Auto) 0.4, Neut # (Auto) 12.1 H, Lymph # (Auto) 0.9, Day # (Auto) 0.6, Eos # (Auto) 0.0, Baso # (Auto) 0.1, PT 9.9, INR 0.89 L, APTT 21.9 L, Sodium 129 L, Potassium 4.7, C hloride 85 L, Carbon Dioxide 34 H, Anion Gap 14.7, BUN 27 H, Creatinine 0.90, Estimated Creat Clear 81, Estimated GFR 81, Est GFR ( Amer) 98, Glucose 174 H, Calcium 9.1, Magnesium 1.6, Total Bilirubin 0.7, AST 48, ALT 26, Alkaline Phosphatase 83, Troponin I < 0.01, NT-Pro-B Natriuret Pep 744 H, Total Protein 6.9, Albumin 4.2, Globulin 2.7, Albumin/Globulin Ratio 1.6, HCV Ab CHA w/Rflx PCR Qn Negative, HIV Ag/Ab Combo Qual Negative 11/01/24 14:43: VBG pH 7.35, VBG pCO2 58.4 H, VBG pO2 41.9 H, VBG HCO3 31.2 H, V BG Total CO2 32.9 H, VBG O2 Saturation 71.2 H, VBG Base Excess 5.5 H, VBG Lactic Acid 2.5 H 11/01/24 14:35 11/01/24 14:35 Orders (Tests/Meds): ED MEDICATIONS Discontinued Medications Generic Name Dose Route Start Last Admin Trade Name Freq PRN Reason Stop Dose Admin Iopamidol 70 ml 11/01/24 15:15 11/01/24 15:16 Iopamidol-370 (76%);100ml Bottle IV 11/01/24 15:16 70 ml ONCE ONE Administration Sodium Chloride 10 ml 11/01/24 15:15 11/01/24 15:16 Sodium Chloride 0.9% 10ml Syr (Rad Only) IV 11/01/24 15:16 10 ml ONCE ONE Administration Sodium Chloride 50 ml 11/01/24 15:15 11/01/24 15:16 0.9 % Sodium Chloride 50 Ml Vial IV 11/01/24 15:16 50 ml ONCE ONE Administration ORDERS Category Date Time Status CT angio chest PE protocol Stat Cat Scan 11/01/24 15:03 Completed XR chest portable Stat Exams 11/01/24 14:48 Completed Complete Blood Count Auto Diff Stat Lab 11/01/24 14:35 Completed Comprehensive Metabolic Panel Stat Lab 11/01/24 14:35 Completed HIV Combo Stat Lab 11/01/24 14:35 Completed Hepatitis C Ab Qual. W/ RFX Stat Lab 11/01/24 14:35 Completed Magnesium Stat Lab 11/01/24 14:35 Completed NT Pro Brain Natriuretic Pep. Stat Lab 11/01/24 14:35 Completed PT INR [Prothrombin Time INR] Stat Lab 11/01/24 14:35 Completed PTT [Activated Partial Thrombo Time] Stat Lab 11/01/24 14:35 Completed Troponin I Stat Lab 11/01/24 14:35 Completed Venous Blood Gas Routine RT 11/01/24 14:43 Completed Medical Decision Narrative: 79-year-old male currently on hospice for stage IV lung cancer presenting with syncope versus presyncope. Patient states he would not of come in if it was not at the behest of his family. Patient states that he was brushing his teeth, felt lightheaded, walked to his armchair, then was told I guess I passed out. EMS was contacted by family. On EMS arrival, patient had no acute complaints. They state that the patient had no acute complaints when they arrived, they gave him a DuoNeb because it was time for breathing treatment, brought him in. On my arrival, patient states he has no acute complaints. Denies chest pain, shortness of breath, nausea, vomiting, vision changes, palpitations, etc. He states that he would not of come in had his family not spoken to EMS and convinced him to present to the emergency department. States that he felt lightheaded, but no longer having no symptoms. History obtained with patient. He is alert, he is oriented, he is well-appearing and speaking in full sentences. His lungs are clear I do not appreciate any wheezes, but he does have decreased breath sounds on the lateral and inferior right side. Abdomen is soft, nontender, nondistended. Differential includes pneumonia, bronchitis, PE, pneumothorax, infection, sepsis, etc. Laboratory and imaging workup to be initiated. On independent interpretation of patient's EKG, it appears to be sinus rhythm 93 bpm with MA interval approximately 200 ms. QRS narrow at 138, QTc 454. Leftward axis. Chest x-ray independently interpreted, he has large right-sided opacity. CT PE was ordered. Prior to rest of labs and imaging, care handed off to oncoming physician. 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 Electronic assistant speech language pathologist of the spoken language may permit errors. Although I have reviewed the note, some errors may still exist. <Dino Shultz MD - Last Filed: 11/09/24 00:39> Vital Signs: 11/01/24 14:37 11/01/24 15:00 11/01/24 15:30 Temperature 98.2 F Temperature Source Oral Pulse Rate 92 H 94 H Pulse Rate [Radial] 93 H Respiratory Rate 20 Blood Pressure 96/67 L 96/76 L Blood Pressure [Right Arm] 133/90 Blood Pressure Mean Blood Pressure Mean [Right Arm] 104 Blood Pressure Source Blood Pressure Source [Right Arm] Automatic Cuff Blood Pressure Position Blood Pressure Position [Right Arm] Sitting 02 Sat by Pulse Oximetry 93 L 95 96 Oxygen Delivery Method Nasal Cannula Nasal Cannula Nasal Cannula Oxygen Flow Rate (LPM) 3 3 3 11/01/24 16:00 11/01/24 16:30 11/01/24 17:00 Temperature Temperature Source Pulse Rate 92 H 89 Pulse Rate [Radial] Respiratory Rate Blood Pressure 103/74 L 112/81 116/84 Blood Pressure [Right Arm] Blood Pressure Mean 83 Blood Pressure Mean [Right Arm] Blood Pressure Source Blood Pressure Source [Right Arm] Blood Pressure Position Blood Pressure Position [Right Arm] 02 Sat by Pulse Oximetry 96 98 Oxygen Delivery Method Nasal Cannula Room Air Nasal Cannula Oxygen Flow Rate (LPM) 3 3 3 11/01/24 17:30 11/01/24 18:00 11/01/24 18:30 Temperature 98.0 F Temperature Source Oral Pulse Rate 90 85 86 Pulse Rate [Radial] Respiratory Rate 16 Blood Pressure 96/77 L 117/92 H 117/92 H Blood Pressure [Right Arm] Blood Pressure Mean Blood Pressure Mean [Right Arm] Blood Pressure Source Automatic Cuff Blood Pressure Source [Right Arm] Blood Pressure Position Sitting Blood Pressure Position [Right Arm] 02 Sat by Pulse Oximetry 98 97 Oxygen Delivery Method Nasal Cannula Nasal Cannula Nasal Cannula Oxygen Flow Rate (LPM) 3 3 3 Lab Data Lab Results 11/01/24 14:35: WBC 13.9 H, RBC 3.78 L, Hgb 12.4 L, Hct 37.7 L, MCV 99.7 H, MCH 32.8 H, MCHC 32.9, RDW 14.3, Plt Count 271, MPV 9.4, Neut % (Auto) 87.1 H, Lymph % (Auto) 6.1 L, Day % (Auto) 4.3, Eos % (Auto) 0.1, Baso % (Auto) 0.4, Neut # (Auto) 12.1 H, Lymph # (Auto) 0.9, Day # (Auto) 0.6, Eos # (Auto) 0.0, Baso # (Auto) 0.1, PT 9.9, INR 0.89 L, APTT 21.9 L, Sodium 129 L, Potassium 4.7, C hloride 85 L, Carbon Dioxide 34 H, Anion Gap 14.7, BUN 27 H, Creatinine 0.90, Estimated Creat Clear 81, Estimated GFR 81, Est GFR ( Amer) 98, Glucose 174 H, Calcium 9.1, Magnesium 1.6, Total Bilirubin 0.7, AST 48, ALT 26, Alkaline Phosphatase 83, Troponin I < 0.01, NT-Pro-B Natriuret Pep 744 H, Total Protein 6.9, Albumin 4.2, Globulin 2.7, Albumin/Globulin Ratio 1.6, HCV Ab CHA w/Rflx PCR Qn Negative, HIV Ag/Ab Combo Qual Negative 11/01/24 14:43: VBG pH 7.35, VBG pCO2 58.4 H, VBG pO2 41.9 H, VBG HCO3 31.2 H, V BG Total CO2 32.9 H, VBG O2 Saturation 71.2 H, VBG Base Excess 5.5 H, VBG Lactic Acid 2.5 H Orders (Tests/Meds): ED MEDICATIONS Discontinued Medications Generic Name Dose Route Start Last Admin Trade Name Freq PRN Reason Stop Dose Admin Iopamidol 70 ml 11/01/24 15:15 11/01/24 15:16 Iopamidol-370 (76%);100ml Bottle IV 11/01/24 15:16 70 ml ONCE ONE Administration Sodium Chloride 10 ml 11/01/24 15:15 11/01/24 15:16 Sodium Chloride 0.9% 10ml Syr (Rad Only) IV 11/01/24 15:16 10 ml ONCE ONE Administration Sodium Chloride 50 ml 11/01/24 15:15 11/01/24 15:16 0.9 % Sodium Chloride 50 Ml Vial IV 11/01/24 15:16 50 ml ONCE ONE Administration ORDERS Category Date Time Status CT angio chest PE protocol Stat Cat Scan 11/01/24 15:03 Completed XR chest portable Stat Exams 11/01/24 14:48 Completed Complete Blood Count Auto Diff Stat Lab 11/01/24 14:35 Completed Comprehensive Metabolic Panel Stat Lab 11/01/24 14:35 Completed HIV Combo Stat Lab 11/01/24 14:35 Completed Hepatitis C Ab Qual. W/ RFX Stat Lab 11/01/24 14:35 Completed Magnesium Stat Lab 11/01/24 14:35 Completed NT Pro Brain Natriuretic Pep. Stat Lab 11/01/24 14:35 Completed PT INR [Prothrombin Time INR] Stat Lab 11/01/24 14:35 Completed PTT [Activated Partial Thrombo Time] Stat Lab 11/01/24 14:35 Completed Troponin I Stat Lab 11/01/24 14:35 Completed Venous Blood Gas Routine RT 11/01/24 14:43 Completed Medical Decision Narrative: 79-year-old male currently on hospice for stage IV lung cancer presenting with syncope versus presyncope. Patient states he would not of come in if it was not at the behest of his family. Patient states that he was brushing his teeth, felt lightheaded, walked to his armchair, then was told I guess I passed out. EMS was contacted by family. On EMS arrival, patient had no acute complaints. They state that the patient had no acute complaints when they arrived, they gave him a DuoNeb because it was time for breathing treatment, brought him in. On my arrival, patient states he has no acute complaints. Denies chest pain, shortness of breath, nausea, vomiting, vision changes, palpitations, etc. He states that he would not of come in had his family not spoken to EMS and convinced him to present to the emergency department. States that he felt lightheaded, but no longer having no symptoms. History obtained with patient. He is alert, he is oriented, he is well-appearing and speaking in full sentences. His lungs are clear I do not appreciate any wheezes, but he does have decreased breath sounds on the lateral and inferior right side. Abdomen is soft, nontender, nondistended. Differential includes pneumonia, bronchitis, PE, pneumothorax, infection, sepsis, etc. Laboratory and imaging workup to be initiated. On independent interpretation of patient's EKG, it appears to be sinus rhythm 93 bpm with MA interval approximately 200 ms. QRS narrow at 138, QTc 454. Leftward axis. Chest x-ray independently interpreted, he has large right-sided opacity. CT PE was ordered. Prior to rest of labs and imaging, care handed off to oncoming physician. 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 Electronic assistant speech language pathologist of the spoken language may permit errors. Although I have reviewed the note, some errors may still exist. Dino Shultz MD JOSE: I assumed care of this patient from the previous emergency medicine physician. After shared decision making, patient will be discharged at this time with antibiotics and continued care with home hospice. Return precautions given. Critical Care <Derrek Hope MD - Last Filed: 11/01/24 15:10> Critical Care Time Critical Care Time: No
[2024-11-01 15:01] LABS: Basophils # 0.1 K/mm3 (0-0.2); Basophils % 0.4 % (0.1-2.0); Eosinophils % 0.1 % (0.1-12.0); Hematocrit 37.7 % (42.0-52.0); Hemoglobin 12.4 g/dL (14.1-18.0); Lymphocytes # 0.9 K/mm3 (0.7-4.5); Lymphocytes % 6.1 % (10-50); Mean Corpuscular HGB Conc 32.9 g/dL (31.8-35.4); Mean Corpuscular Hemoglobin 32.8 pg (27.0-31.2); Mean Corpuscular Volume 99.7 fl (80-94); Mean Platelet Volume 9.4 fl (7.4-10.4); Monocytes # 0.6 K/mm3 (0.1-1.0); Monocytes % 4.3 % (1.7-9.3); Neutrophils # 12.1 K/mm3 (1.8-7.8); Neutrophils % 87.1 % (37.0-80.0); Platelet Count 271 K/mm3 (142-424); Red Blood Count 3.78 M/mm3 (4.60-6.20); Red Cell Distribution Width 14.3 % (11.5-17.5); White Blood Count 13.9 K/mm3 (4.8-10.8)
[2024-11-01 15:02] LABS: Albumin Level 4.2 g/dl (3.5-5.0); Chloride 85 mmol/L (98-107); Potassium 4.7 mmoL/L (3.5-5.1); Sodium 129 mmol/L (136-145)
--- NOTE | 2024-11-01 15:03 | CT_ITS ---
PROCEDURE INFORMATION: Exam: CTA Chest With Contrast Exam date and time: 11/01/2024 3:15 PM Age: 79 years old Clinical indication: Abnormal findings; Abnormal radiologic exam of lung or chest; Patient HX: HX of lung cancer; Additional info: Right thoracic opacity TECHNIQUE: Imaging protocol: Computed tomographic angiography of the chest with contrast. Exam focused on the arteries. 3D rendering (Not supervised by radiologist): MIP and/or 3D reconstructed images were created by the technologist. Radiation optimization: All CT scans at this facility use at least one of these dose optimization techniques: automated exposure control; mA and/or kV adjustment per patient size (includes targeted exams where dose is matched to clinical indication); or iterative reconstruction. Contrast material: ISOVUE 370; Contrast volume: 70 ml; Contrast route: INTRAVENOUS (IV); COMPARISON: CT ANGIO CHEST PE PROTOCOL 07/15/2022 7:16 PM FINDINGS: Limitations: Study is technically limited due to motion artifact. Pulmonary arteries: Main pulmonary trunk, right and left pulmonary arteries, interlobar branches and 1st order segmental branches are adequately opacified without filling defects or other evidence of acute pulmonary embolism. However more distal subsegmental branches cannot be adequately assessed due to technical limitations of the study. Aorta: Diffuse atherosclerotic changes and ectasia of the thoracic aorta, unchanged. No aortic aneurysm. Lungs: There are some scattered ground-glass opacities intermixed with areas of radiolucency both lung teixeira likely infarcted small airway disease and air trapping. Pleural spaces: See Soft tissues finding. Heart: Heart is moderately enlarged. Diffuse calcification of the coronary arteries. No significant pericardial effusion. Mediastinal space: There are 2 circumscribed anterior mediastinal masses within the prevascular space largest of which measures 5.5 cm increased in size from previous exam (3.7 cm). There is mild mediastinal lymphadenopathy improved from previous exam. Lymph nodes: Unremarkable. No enlarged lymph nodes. Bones/joints: There is mixed osteolytic/sclerotic bone changes involving the posterior aspect of the right 7th rib presumably metastatic in nature relatively unchanged. Previously demonstrated adjacent soft tissue mass is no longer evident. There are multiple mottled sclerotic bone lesions throughout the thoracic spine that have progressed from previous exam a believe metastatic in nature. There are mild compression fractures in the midthoracic spine that have developed may be pathological in nature. There is a chronic compression fracture of T12 vertebral body that is stable. Prior median sternotomy. Soft tissues: There is a small partially loculated right pleural effusion along the right posterior gutter with adjacent atelectasis and bronchiectasis corresponding to site of previous pleural-based mass. There is also a bandlike area of atelectasis more anteriorly right mid lung zone. IMPRESSION: 1. Technically limited but negative CT angiogram of the chest. No evidence of acute pulmonary embolism to major branches of the pulmonary vascular tree. 2. Small loculated right pleural effusion and adjacent lung consolidation right mid lung zone and right midlung subsegmental atelectasis progressed from previous exam. 3. Mixed response to therapy with enlarging anterior mediastinal masses and worsening bone metastasis presumed metastatic in nature. Improving mediastinal lymphadenopathy and resolved right chest wall mass also presumed metastatic in nature.
[2024-11-01 15:04] LABS: Blood Urea Nitrogen 27 mg/dl (9-20); Creatinine Clearance Estimated 81 mL/min (50-200); Estimated Glomerular Filt Rate 81 ml/min (>60); GFR (African American) 98 ML/MIN (>60)
[2024-11-01 15:05] LABS: Alanine Aminotransferase 26 U/L (12-78); Albumin/Globulin Ratio 1.6 (1.1-1.8); Alkaline Phosphatase 83 U/L (38-126); Anion Gap 14.7 mEq/L (5-15); Aspartate Amino Transferase 48 U/L (17-59); Bilirubin,Total 0.7 mg/dl (0.2-1.3); Calcium 9.1 mg/dl (8.4-10.2); Carbon Dioxide 34 mmol/L (22.0-30.0); Globulin 2.7 g/dL (1.3-3.2); Glucose 174 mg/dl (74-100); Total Protein,Serum 6.9 g/dl (6.3-8.2)
[2024-11-01 15:06] LABS: Magnesium 1.6 mg/dl (1.6-2.3)
--- NOTE | 2024-11-01 15:06 | PC.NURSE ---
PT PROVIDED PILLOW, NO FURTHER NEEDS AT THIS TIME. CALL LIGHT WITHIN REACH. FAMILY AT BEDSIDE
[2024-11-01 15:07] LABS: INR 0.89 (0.9-1.1); Prothrombin Time 9.9 seconds (9.2-12.1)
--- NOTE | 2024-11-01 15:09 | PC.NURSE ---
PT TO CT
[2024-11-01 15:14] LABS: NT Pro Brain Natriuretic Pep. 744 pg/mL (0-450)
[2024-11-01] MEDS: SODIUM CHLORIDE 0.9% 10ML SYR (RAD ONLY) 10 ML IV (15:16)
[2024-11-01] MEDS: 0.9 % SODIUM CHLORIDE 50 ML VIAL IV (15:16)
[2024-11-01] MEDS: IOPAMIDOL-370 (76%);100ML BOTTLE 70 ML IV (15:16)
[2024-11-01 15:18] LABS: Activated Partial Thrombo Time 21.9 seconds (22.5-28.5)
--- NOTE | 2024-11-01 15:20 | PC.NURSE ---
PT RETURNED FROM CT
[2024-11-01 15:21] LABS: Troponin I < 0.01 ng/ml (0.00-0.034)
--- NOTE | 2024-11-01 15:38 | PC.NURSE ---
[facility] WITH HOSPICE UPDATED AT THIS TIME
[2024-11-01 16:02] LABS: HIV Combo NEGATIVE (Negative)
[2024-11-01 16:11] LABS: Hepatitis C Ab Qual. W/ RFX NEGATIVE (Negative)
--- NOTE | 2024-11-01 16:17 | PC.NURSE ---
Patient assisted to stand at bedside and utilize urinal. Patient voided 75ml straw colored urine.
--- NOTE | 2024-11-01 16:50 | PC.NURSE ---
Rounded on patient, no needs at this time. Resting in bed.
[2024-11-01 18:44] LABS: Reflex Lactic Add Lactic Reflex
== END 2024-11-01 18:31 | disposition hospice, home (50) ==
PROVIDERS: Emergency Medicine; Emergency Provider Emergency Medicine; PCP Internal Medicine Adolescent Medicine
DX: J18.9 Pneumonia, unspecified organism (principal); R06.02 Shortness of breath; R55 Syncope and collapse; C34.90 Malignant neoplasm of unspecified part of unspecified bronchus or lung
CPT/HCPCS: 71045; 71275; 80053; 82803; 83735; 83880; 84484; 85025; 85610; 85730; 86803; 87389; 93005; 99285; Q9967